=== PATIENT | female | born 1965 | race Caucasian/White ===

== ENCOUNTER → 2020-03-22 | Outpatient (CLI) | payer OTHER ==
--- NOTE | 2020-03-22 16:46 | Diagnostic Imaging Report ---
PROCEDURE: US Bilateral lower extremity arterial. TECHNIQUE: Multiple real-time grayscale images are obtained through both lower extremity arterial systems with color Doppler imaging and color Doppler spectral analysis. INDICATION: Diabetes. Right toe ulcerations. Partial amputation of the left foot. History of bilateral femoropopliteal bypass grafts. COMPARISON: None available. FINDINGS: On the right, there is a common femoral to popliteal bypass graft. There appears to be greater than 50% narrowing at the origin of this graft where there is also an elevated peak systolic velocity of 131 cm/s. There is also a high-grade stenosis of the distal graft where the peak systolic velocity reaches 196 cm/s. There are monophasic waveforms within the right lower extremity below the graft insertion. The right posterior tibial artery is not seen. On the left, there is also a common femoral to popliteal artery bypass graft. There is an elevated peak systolic velocity in the left profundofemoral measuring 238 cm/s. There is also an elevated peak systolic velocity in the distal graft measuring 161 cm/s. There are monophasic waveforms in the left lower extremity below the level of the graft insertion. IMPRESSION: 1. Bilateral common femoral to popliteal bypass grafts. 2. There are elevated peak systolic velocities, suggesting high-grade stenosis at both the proximal and distal portion of the right bypass graft. 3. The right posterior tibial artery is not seen and likely occluded. 4. Elevated peak systolic velocities in the left profunda femoral and distal left bypass graft, suggesting high-grade arterial stenoses. Dictated by: Dictated on workstation # [id number]
== END ==
LOC: RAD 11:47
PROVIDERS: ATTEND Surgery
DX: E11.621 Type 2 diabetes mellitus with foot ulcer (principal); E11.42 Type 2 diabetes mellitus with diabetic polyneuropathy; E11.65 Type 2 diabetes mellitus with hyperglycemia; L97.514 Non-pressure chronic ulcer of other part of right foot with necrosis of bone; I70.235 Atherosclerosis of native arteries of right leg with ulceration of other part of foot; E11.22 Type 2 diabetes mellitus with diabetic chronic kidney disease; N18.4 Chronic kidney disease, stage 4 (severe); E66.01 Morbid (severe) obesity due to excess calories
CPT/HCPCS: 93925

== ENCOUNTER → 2020-03-22 | Outpatient (CLI) | payer OTHER | LOC: WOUNDCARE 08:55 | PROVIDERS: ATTEND Surgery | DX: E11.621 Type 2 diabetes mellitus with foot ulcer (principal); E11.42 Type 2 diabetes mellitus with diabetic polyneuropathy; E11.65 Type 2 diabetes mellitus with hyperglycemia; L97.514 Non-pressure chronic ulcer of other part of right foot with necrosis of bone; I70.235 Atherosclerosis of native arteries of right leg with ulceration of other part of foot; E11.22 Type 2 diabetes mellitus with diabetic chronic kidney disease; N18.4 Chronic kidney disease, stage 4 (severe); E66.01 Morbid (severe) obesity due to excess calories; Z68.42 Body mass index [BMI] 45.0-49.9, adult | CPT/HCPCS: 99204 ==

== ENCOUNTER → 2020-03-26 | Outpatient (CLI) | payer OTHER | LOC: WOUNDCARE 15:26 | PROVIDERS: ATTEND Surgery | DX: E11.621 Type 2 diabetes mellitus with foot ulcer (principal); E11.52 Type 2 diabetes mellitus with diabetic peripheral angiopathy with gangrene; E11.22 Type 2 diabetes mellitus with diabetic chronic kidney disease; E11.42 Type 2 diabetes mellitus with diabetic polyneuropathy; E11.65 Type 2 diabetes mellitus with hyperglycemia; I70.261 Atherosclerosis of native arteries of extremities with gangrene, right leg; L97.514 Non-pressure chronic ulcer of other part of right foot with necrosis of bone; N18.4 Chronic kidney disease, stage 4 (severe); E66.01 Morbid (severe) obesity due to excess calories; Z68.42 Body mass index [BMI] 45.0-49.9, adult | CPT/HCPCS: 99212 ==

== ENCOUNTER → 2020-04-02 | Outpatient (CLI) | payer OTHER | LOC: WOUNDCARE 15:20 | PROVIDERS: ATTEND Surgery | DX: E11.621 Type 2 diabetes mellitus with foot ulcer (principal); E11.42 Type 2 diabetes mellitus with diabetic polyneuropathy; E11.52 Type 2 diabetes mellitus with diabetic peripheral angiopathy with gangrene; E11.22 Type 2 diabetes mellitus with diabetic chronic kidney disease; I70.261 Atherosclerosis of native arteries of extremities with gangrene, right leg; L97.514 Non-pressure chronic ulcer of other part of right foot with necrosis of bone; N18.4 Chronic kidney disease, stage 4 (severe); E66.01 Morbid (severe) obesity due to excess calories; Z68.42 Body mass index [BMI] 45.0-49.9, adult | CPT/HCPCS: 99212 ==

== ENCOUNTER → 2020-04-09 | Outpatient (CLI) | payer OTHER | LOC: WOUNDCARE 15:27 | PROVIDERS: ATTEND Surgery | DX: E11.621 Type 2 diabetes mellitus with foot ulcer (principal); E11.52 Type 2 diabetes mellitus with diabetic peripheral angiopathy with gangrene; E11.22 Type 2 diabetes mellitus with diabetic chronic kidney disease; E11.42 Type 2 diabetes mellitus with diabetic polyneuropathy; I70.261 Atherosclerosis of native arteries of extremities with gangrene, right leg; L97.513 Non-pressure chronic ulcer of other part of right foot with necrosis of muscle; E66.01 Morbid (severe) obesity due to excess calories; N18.4 Chronic kidney disease, stage 4 (severe); Z68.42 Body mass index [BMI] 45.0-49.9, adult | CPT/HCPCS: 99212 ==

== ENCOUNTER → 2020-04-16 | Outpatient (CLI) | payer OTHER | LOC: WOUNDCARE 15:25 | PROVIDERS: ATTEND Surgery | DX: E11.621 Type 2 diabetes mellitus with foot ulcer (principal); E11.42 Type 2 diabetes mellitus with diabetic polyneuropathy; E11.52 Type 2 diabetes mellitus with diabetic peripheral angiopathy with gangrene; E11.22 Type 2 diabetes mellitus with diabetic chronic kidney disease; I70.261 Atherosclerosis of native arteries of extremities with gangrene, right leg; L97.514 Non-pressure chronic ulcer of other part of right foot with necrosis of bone; E66.01 Morbid (severe) obesity due to excess calories; N18.4 Chronic kidney disease, stage 4 (severe); Z68.42 Body mass index [BMI] 45.0-49.9, adult | CPT/HCPCS: 99212 ==

== ENCOUNTER 2020-04-23 05:37 | Outpatient (RCR) | payer OTHER ==
[~2020-04-23] VITALS: Ht 180.3 cm; Wt 155.9 kg
[~2020-04-23 05:37] MED LIST: AMLO10TA7 PO; CALC-654 PO; CHOL200059 PO; CLOP75TA28 PO; DIPH25CA79 PO; DOXY100T31 PO; DULA1.5P2 SQ; INSU100I51 SQ; INSU200I4 SQ; LORA10TA7 PO; LOVA20TA2 PO; METO-333 PO; MV-M1TAB57 PO
== END 2020-04-23 09:54 | disposition home or self-care (01) ==
LOC: PREOP 05:37
PROVIDERS: ATTEND Surgery
DX: Z01.812 Encounter for preprocedural laboratory examination (principal); M89.9 Disorder of bone, unspecified; Z20.828 Contact with and (suspected) exposure to other viral communicable diseases
CPT/HCPCS: 87635

== ENCOUNTER 2020-05-28 14:57 | Inpatient (IN) | payer OTHER ==
[~2020-05-28] VITALS: Ht 180.3 cm; Wt 155.9 kg
--- NOTE | 2020-05-28 15:00 | NUR ---
received pt in room
[2020-05-28] MEDS ORDERED: CATHETER FLUSH 10 ML SYR IV PRN (15:30)
--- NOTE | 2020-05-28 15:30 | NUR ---
I called Dr. Keith with pt's dvt score which was a 7. Orders were for 40mg of Lovenox daily
[2020-05-28 15:35] LABS: MEAN PLATELET VOLUME 11.2 FL (7.4-10.4); RED CELL DISTRIBUTION WIDTH 12.7 % (10.0-14.5); WHITE BLOOD COUNT 18.7 10^3/uL (4.3-11.0)
[2020-05-28 15:45] VITALS: BP 175/77
[2020-05-28 15:48] VITALS: BP 175/77
[2020-05-28] MEDS ORDERED: VANCOMYCIN 2000 MG/NS 500 ML IVPB IV NR ×2 (16:00)
[2020-05-28] MEDS: NS IV 1000 ML 1,000 ML IV SCH (16:02)
[2020-05-28 16:04] LABS: ALBUMIN 3.2 GM/DL (3.2-4.5); BILIRUBIN,TOTAL 0.5 MG/DL (0.1-1.0); CALCIUM 9.7 MG/DL (8.5-10.1); CREATININE SERUM 3.07 MG/DL (0.60-1.30); POTASSIUM 4.2 MMOL/L (3.6-5.0); TOTAL PROTEIN 7.2 GM/DL (6.4-8.2)
[2020-05-28] MEDS ORDERED: METO50TA15 PO (16:14)
[2020-05-28] MEDS ORDERED: CALC500T64 PO (16:14)
[2020-05-28] MEDS ORDERED: FURO40TA4 PO (16:14)
--- NOTE | 2020-05-28 16:16 | NUR ---
SPOKE WITH THE PT (SHE HAD A MED LIST THAT I ATTACHED TO HER CHART) AND WENT THRU THE EXT MED HISTORY TO COMPLETE THE MED REC PT WAS ABLE TO TELL ME HOW/WHEN SHE TAKES EACH MED AND ALL HER INFORMATION MATCHED THE EXT MED HISTORY OTC MEDS: LORATADINE BENADRYL VIT D MTV CALCIUM
--- NOTE | 2020-05-28 16:27 | NUR ---
CR 3.07; CR CL ~356 (USED ADJ WT OF 104.8 KG); ACTUAL WT 155.9 KG; VANCO 2000 MG IV BOLUS THEN 1250 MG IV Q24HR; TROUGH AFTER 2ND DOSE
--- OUTSIDE RECORDS SUMMARY | 2020-05-28 19:20 | XMS REPORT | Continuity of Care Document ---
Author Organization Unknown Address Unknown Phone Unavailable Allergies Active Description Code Type Severity Reaction Onset Reported/Identified Relationship to Patient Clinical Status Yes No Known Drug Allergies [id number] Drug Allergy Unknown N/A 04/20/2020 Medications There is no data. 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 03/23/2020 EUFEMIA JOSEPH MD, Ot E11.42 TYPE 2 DIABETES MELLITUS WITH DIABETIC P 03/23/2020 EUFEMIA JOSEPH MD, Ot E11.621 TYPE 2 DIABETES MELLITUS WITH FOOT ULCER 03/23/2020 EUFEMIA JOSEPH MD, Ot E11.65 TYPE 2 DIABETES MELLITUS WITH HYPERGLYCE 03/23/2020 EUFEMIA JOSEPH MD, Ot E66.01 MORBID (SEVERE) OBESITY DUE TO EXCESS CA 03/23/2020 EUFEMIA JOSEPH MD Ot I70.235 ATHSCL [place] ARTERIES OF RIGHT LEG W UL 03/23/2020 EUFEMIA JOSEPH MD, Ot L97.514 NON-PRS CHRONIC ULCER OTH PRT RIGHT FOOT 03/23/2020 EUFEMIA JOSEPH MD Ot N18 .4 CHRONIC KIDNEY DISEASE, STAGE 4 (SEVERE) 03/23/2020 EUFEMIA JOSEPH MD, Ot 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 03/23/2020 EUFEMIA JOSEPH MD, Ot E11.42 TYPE 2 DIABETES MELLITUS WITH DIABETIC P 03/23/2020 EUFEMIA JOSEPH MD, Ot E11.621 TYPE 2 DIABETES MELLITUS WITH FOOT ULCER 03/23/2020 EUFEMIA JOSEPH MD, Ot E11.65 TYPE 2 DIABETES MELLITUS WITH HYPERGLYCE 03/23/2020 EUFEMIA JOSEPH MD, Ot E66.01 MORBID (SEVERE) OBESITY DUE TO EXCESS CA 03/23/2020 EUFEMIA JOSEPH MD, Ot I70.235 ATHSCL [place] ARTERIES OF RIGHT LEG W UL 03/23/2020 EUFEMIA JOSEPH MD, Ot L97.514 NON-PRS CHRONIC ULCER OTH PRT RIGHT FOOT 03/23/2020 EUFEMIA JOSEPH MD, Ot N18 .4 CHRONIC KIDNEY DISEASE, STAGE 4 (SEVERE) 03/23/2020 EUFEMIA JOSEPH MD, Ot Z68.42 BODY MASS INDEX (BMI) 45.0-49.9, ADULT 03/28/2020 EUFEMIA JOSEPH MD, Ot 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 03/28/2020 EUFEMIA JOSEPH MD, Ot E11.42 TYPE 2 DIABETES MELLITUS WITH DIABETIC P 03/28/2020 EUFEMIA JOSEPH MD, Ot E11.52 TYPE 2 DIABETES W DIABETIC PERIPHERAL AN 03/28/2020 EUFEMIA JOSEPH MD, Ot E11.621 TYPE 2 DIABETES MELLITUS WITH FOOT ULCER 03/28/2020 EUFEMIA JOSEPH MD, Ot E11.65 TYPE 2 DIABETES MELLITUS WITH HYPERGLYCE 03/28/2020 EUFEMIA JOSEPH MD, Ot E66.01 MORBID (SEVERE) OBESITY DUE TO EXCESS CA 03/28/2020 EUFEMIA JOSEPH MD, Ot I70.261 ATHSCL [place] ARTERIES OF EXTREMITIES W 03/28/2020 EUFEMIA JOSEPH MD, Ot L97.514 NON-PRS CHRONIC ULCER OTH PRT RIGHT FOOT 03/28/2020 EUFEMIA JOSEPH MD, Ot N18 .4 CHRONIC KIDNEY DISEASE, STAGE 4 (SEVERE) 03/28/2020 EUFEMIA JOSEPH MD, Ot Z68.42 BODY MASS INDEX (BMI) 45.0-49.9, ADULT 04/05/2020 EUFEMIA JOSEPH MD, Ot 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 04/05/2020 EUFEMIA JOSEPH MD, Ot E11.42 TYPE 2 DIABETES MELLITUS WITH DIABETIC P 04/05/2020 EUFEMIA JOSEPH MD, Ot E11.52 TYPE 2 DIABETES W DIABETIC PERIPHERAL AN 04/05/2020 EUFEMIA JOSEPH MD, Ot E11.621 TYPE 2 DIABETES MELLITUS WITH FOOT ULCER 04/05/2020 EUFEMIA JOSEPH MD, Ot E66.01 MORBID (SEVERE) OBESITY DUE TO EXCESS CA 04/05/2020 EUFEMIA JOSEPH MD, Ot I70.261 ATHSCL [place] ARTERIES OF EXTREMITIES W 04/05/2020 EUFEMIA JOSEPH MD, Ot L97.514 NON-PRS CHRONIC ULCER OTH PRT RIGHT FOOT 04/05/2020 EUFEMIA JOSEPH MD, Ot N18 .4 CHRONIC KIDNEY DISEASE, STAGE 4 (SEVERE) 04/05/2020 EUFEMIA JOSEPH MD, Ot Z68.42 BODY MASS INDEX (BMI) 45.0-49.9, ADULT 04/17/2020 EUFEMIA JOSEPH MD, Ot 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 04/17/2020 EUFEMIA JOSEPH MD, Ot E11.42 TYPE 2 DIABETES MELLITUS WITH DIABETIC P 04/17/2020 EUFEMIA JOSEPH MD, Ot E11.52 TYPE 2 DIABETES W DIABETIC PERIPHERAL AN 04/17/2020 EUFEMIA JOSEPH MD, Ot E11.621 TYPE 2 DIABETES MELLITUS WITH FOOT ULCER 04/17/2020 EUFEMIA JOSEPH MD, Ot E66.01 MORBID (SEVERE) OBESITY DUE TO EXCESS CA 04/17/2020 EUFEMIA JOSEPH MD, Ot I70.261 ATHSCL [place] ARTERIES OF EXTREMITIES W 04/17/2020 EUFEMIA JOSEPH MD, Ot L97.513 NON-PRS CHRONIC ULCER OTH PRT RIGHT FOOT 04/17/2020 EUFEMIA JOSEPH MD, Ot N18 .4 CHRONIC KIDNEY DISEASE, STAGE 4 (SEVERE) 04/17/2020 EUFEMIA JOSEPH MD, Ot Z68.42 BODY MASS INDEX (BMI) 45.0-49.9, ADULT 04/18/2020 EUFEMIA JOSEPH MD, Ot 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 04/18/2020 EUFEMIA JOSEPH MD, Ot E11.42 TYPE 2 DIABETES MELLITUS WITH DIABETIC P 04/18/2020 EUFEMIA JOSEPH MD, Ot E11.52 TYPE 2 DIABETES W DIABETIC PERIPHERAL AN 04/18/2020 EUFEMIA JOSEPH MD Ot E11.621 TYPE 2 DIABETES MELLITUS WITH FOOT ULCER 04/18/2020 EUFEMAI JOSEPH MD Ot E66.01 MORBID (SEVERE) OBESITY DUE TO EXCESS CA 04/18/2020 EUFEMIA JOSEPH MD, Ot I70.261 ATHSCL [place] ARTERIES OF EXTREMITIES W 04/18/2020 EUFEMIA JOSEPH MD, Ot L97.514 NON-PRS CHRONIC ULCER OTH PRT RIGHT FOOT 04/18/2020 EUFEMIA JOSEPH MD Ot N18 .4 CHRONIC KIDNEY DISEASE, STAGE 4 (SEVERE) 04/18/2020 JAKE DURON, EUFEMIA Rothman Ot Z68.42 BODY MASS INDEX (BMI) 45.0-49.9, ADULT 04/26/2020 READBURAK PEDERSON DO, Ot E11. 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 51 TYPE 2 DIABETES W DIABETIC PERIPHERAL AN 04/26/2020 READ BURAK MUÑOZ Ot E11.621 TYPE 2 DIABETES MELLITUS WITH FOOT ULCER 04/26/2020 READ BURAK MUÑOZ Ot E66. 01 MORBID (SEVERE) OBESITY DUE TO EXCESS CA 04/26/2020 BURAK READ DO Ot G47. 33 OBSTRUCTIVE SLEEP APNEA (ADULT) (PEDIATR 04/26/2020 BURAK READ DO Ot I12. 9 HYPERTENSIVE CHRONIC KIDNEY DISEASE W ST 04/26/2020 BURAK READ DO Ot I70.235 ATHSCL [place] ARTERIES OF RIGHT LEG W UL 04/26/2020 BURAK READ DO Ot L97.514 NON-PRS CHRONIC ULCER OTH PRT RIGHT FOOT 04/26/2020 BURAK READ DO Ot M86. 9 OSTEOMYELITIS, UNSPECIFIED 04/26/2020 BURAK READ DO Ot N18. 4 CHRONIC KIDNEY DISEASE, STAGE 4 (SEVERE) 04/26/2020 BURAK READ DO Ot S91.104A UNSP OPN WND RIGHT LESSER TOE(S) W/O DAM 04/26/2020 BURAK READ DO, Ot Z68. 42 BODY MASS INDEX (BMI) 45.0-49.9, ADULT 04/26/2020 BURAK READ DO Ot Z79. 02 RACKET STRINGER (CURRENT) USE OF ANTITHROMBOTI 04/26/2020 BURAK READ DO, Ot Z79.899 OTHER RACKET STRINGER (CURRENT) DRUG THERAPY 04/26/2020 BURAK READ DO, Ot Z87.891 PERSONAL HISTORY OF NICOTINE DEPENDENCE 04/26/2020 BURAK READ DO Ot Z95. 5 PRESENCE OF CORONARY ANGIOPLASTY IMPLANT 05/02/2020 BURAK READ DO Ot E11. 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 51 TYPE 2 DIABETES W DIABETIC PERIPHERAL AN 05/02/2020 PHIL READ DOTT D Ot E11.621 TYPE 2 DIABETES MELLITUS WITH FOOT ULCER 05/02/2020 READ DOBURAK Ot E66. 01 MORBID (SEVERE) OBESITY DUE TO EXCESS CA 05/02/2020 [facility] G47. 33 OBSTRUCTIVE SLEEP APNEA (ADULT) (PEDIATR 05/02/2020 [facility] Ot I12. 9 HYPERTENSIVE CHRONIC KIDNEY DISEASE W ST 05/02/2020 READ BURAK MUÑOZ Ot I70.235 ATHSCL [place] ARTERIES OF RIGHT LEG W UL 05/02/2020 READ DOBURAK Ot L97.514 NON-PRS CHRONIC ULCER OTH PRT RIGHT FOOT 05/02/2020 READ DOBURAK Ot M86. 9 OSTEOMYELITIS, UNSPECIFIED 05/02/2020 READ DOBURAK Ot N18. 4 CHRONIC KIDNEY DISEASE, STAGE 4 (SEVERE) 05/02/2020 [facility] Ot S91.104A UNSP OPN WND RIGHT LESSER TOE(S) W/O DAM 05/02/2020 READ DOBURAK Ot Z68. 42 BODY MASS INDEX (BMI) 45.0-49.9, ADULT 05/02/2020 READ DOBURAK Ot Z79. 02 HALF-WAY (CURRENT) USE OF ANTITHROMBOTI 05/02/2020 READ DOBURAK Ot Z79.899 OTHER RACKET STRINGER (CURRENT) DRUG THERAPY 05/02/2020 READ DOBURAK Ot Z87.891 PERSONAL HISTORY OF NICOTINE DEPENDENCE 05/02/2020 READ BURAK MUÑOZ Ot Z95. 5 PRESENCE OF CORONARY ANGIOPLASTY IMPLANT 05/07/2020 BURAK READ DO Ot E11. 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 51 TYPE 2 DIABETES W DIABETIC PERIPHERAL AN 05/07/2020 BURAK READ DO Ot E11.621 TYPE 2 DIABETES MELLITUS WITH FOOT ULCER 05/07/2020 READ BURAK MUÑOZ Ot E66. 01 MORBID (SEVERE) OBESITY DUE TO EXCESS CA 05/07/2020 BURAK READ DO Ot G47. 33 OBSTRUCTIVE SLEEP APNEA (ADULT) (PEDIATR 05/07/2020 READ DOBURAK Ot I12. 9 HYPERTENSIVE CHRONIC KIDNEY DISEASE W ST 05/07/2020 [facility] Ot I70.235 ATHSCL [place] ARTERIES OF RIGHT LEG W UL 05/07/2020 [facility] Ot L97.514 NON-PRS CHRONIC ULCER OTH PRT RIGHT FOOT 05/07/2020 [facility] Ot M86. 9 OSTEOMYELITIS, UNSPECIFIED 05/07/2020 [facility] Ot N18. 4 CHRONIC KIDNEY DISEASE, STAGE 4 (SEVERE) 05/07/2020 [facility] Ot S91.104A UNSP OPN WND RIGHT LESSER TOE(S) W/O DAM 05/07/2020 [facility] Ot Z68. 42 BODY MASS INDEX (BMI) 45.0-49.9, ADULT 05/07/2020 [facility] Ot Z79. 02 RACKET STRINGER (CURRENT) USE OF ANTITHROMBOTI 05/07/2020 [facility] Ot Z79.899 OTHER RACKET STRINGER (CURRENT) DRUG THERAPY 05/07/2020 [facility] Ot Z87.891 PERSONAL HISTORY OF NICOTINE DEPENDENCE 05/07/2020 [facility] Z95. 5 PRESENCE OF CORONARY ANGIOPLASTY IMPLANT Procedures There is no data. Results Test Result Range Coronavirus SARS-CoV-2 SO 2018 - 0 08:20 Coronavirus Ab [Units/volume] in Serum Negative Negative Methicillin resistant Staphylococcus aur eus (MRSA) screening culture - 04/26/20 11:35 Methicillin resistant Staphylococcus aureus (MRSA) scr eening culture NEG NRG Capillary blood glucose measurement by g lucometer (mass/volume) - 04/26/20 12:08 Capillary blood glucose measurement by glucometer (mas s/volume) 96 mg/dL 70-110 Capillary blood glucose measurement by g lucometer (mass/volume) - 05/28/20 15:28 Capillary blood glucose measurement by glucometer (mas s/volume) 187 mg/dL 70-110 Automated blood complete blood count (he mogram) panel - 05/28/20 15:30 Blood leukocytes automated count (number/volume) 18.7 10*3/uL 4.3-11.0 Blood erythrocytes automated count (number/volume) 3.50 10*6/uL 4.35-5.85 Venous blood hemoglobin measurement (mass/volume) 10.0 g/dL 11.5-16.0 Blood hematocrit (volume fraction) 31 % 35-52 Automated erythrocyte mean corpuscular volume 88 [ foz_us] 80-99 Automated erythrocyte mean corpuscular h emoglobin (mass per erythrocyte) 29 pg 25-34 Automated erythrocyte mean corpuscular h emoglobin concentration measurement (mass/volume) 33 g/dL 32-36 Automated erythrocyte distribution width ratio 12. 7 % 10.0- 14.5 Automated blood platelet count (count/volume) 277 10*3/uL 130-400 Automated blood platelet mean volume measurement 11.2 [foz_us] 7.4-10.4 Comprehensive metabolic panel - 05/28/20 15:30 Serum or plasma sodium measurement (moles/volume) 136 mmol/L 135-145 Serum or plasma potassium measurement (moles/volume) 4.2 mmol/L 3.6-5.0 Serum or plasma chloride measurement (moles/volume) 101 mmol/L 98-107 Carbon dioxide 22 mmol/L 21-32 Serum or plasma anion gap determination (moles/volume) 13 mmol/L 5-14 Serum or plasma urea nitrogen measurement (mass/volume ) 52 mg/dL 7-18 Serum or plasma creatinine measurement (mass/volume) 3.07 mg/dL 0.60-1.30 Serum or plasma urea nitrogen/creatinine mass ratio 17 NRG Serum or plasma creatinine measurement w ith calculation of estimated glomerular filtration rate 16 NRG Serum or plasma glucose measurement (mass/volume) 175 mg/dL 70-105 Serum or plasma calcium measurement (mass/volume) 9.7 mg/dL 8.5-10.1 Serum or plasma total bilirubin measurement (mass/volu me) 0.5 mg/dL 0.1-1.0 Serum or plasma alkaline phosphatase prema surement (enzymatic activity/volume) 89 U/L 40-136 Serum or plasma aspartate aminotransfera se measurement (enzymatic activity/volume) 38 U/L 5-34 Serum or plasma alanine aminotransferase measurement (enzymatic activity/volume) 38 U/L 0-55 Serum or plasma protein measurement (mass/volume) 7.2 g/dL 6.4-8.2 Serum or plasma albumin measurement (mass/volume) 3.2 g/dL 3.2-4.5 CALCIUM CORRECTED 10.3 mg/dL 8.5-10.1 Encounters ACCT No. Visit Date/Time Discharge Status Pt. Type Provider Facility Loc./Unit Complaint [id number] 04/26/2020 11:16:00 15:55:00 DIS Outpatient BURAK READ DO [facility] SDC BONE DECORTICATION [id number] 04/23/2020 05:37:00 09:54:00 DIS Outpatient BURAK READ DO [facility] PREOP BONE DECORTICATION [id number] 04/16/2020 15:25:00 23:59:59 CLS Outpatient EUFEMIA JOSEPH MD [facility] WOUNDCARE [id number] 04/09/2020 15:27:00 23:59:59 CLS Outpatient EUFEMIA JOSEPH MD [facility] [id number] 04/02/2020 15:20:00 23:59:59 CLS Outpatient EUFEMIA JOSEPH MD [facility] [id number] 03/26/2020 15:26:00 23:59:59 CLS Outpatient EUFEMIA JOSEPH MD [facility] [id number] 03/22/2020 11:47:00 23:59:59 CLS Outpatient EUFEMIA JOSEPH MD [facility] RAD ATHEROSCLEROSIS OF KIMBERLY VE ART RIGHT LEG [id number] 03/22/2020 08:55:00 23:59:59 CLS Outpatient EUFEMIA JOSEPH MD [facility] W[facility] [id number] 05/28/2020 14:57:[address] Inpatient BURAK READ DO [facility] 4TH LOWER EXT CELLULITUS
[2020-05-28 19:33] VITALS: BP 159/78
[2020-05-28] MEDS: ENOXAPARIN 40 MG/0.4 ML (LOVENOX) SYR SC SCH (20:43)
--- NOTE | 2020-05-28 21:24 | NUR ---
DR. READ CALLED THIS RN ORDER RECEIVED TO START PT ON SS A FOR DM MANAGEMENT-START TONIGHT
[2020-05-28] MEDS: inSUlin ASPART (NovoLOG) 1 UNIT/0.01 ML (CHARGE PER UNIT) SC SCH (21:34)
[2020-05-29 00:45] VITALS: BP 178/76
[2020-05-29 04:05] VITALS: BP 167/73
[2020-05-29] MEDS: NS IV 1000 ML 1,000 ML IV SCH ×3 (04:07→21:29)
[2020-05-29 05:20] LABS: HEMOGLOBIN 9.4 G/DL (11.5-16.0); MEAN PLATELET VOLUME 11.5 FL (7.4-10.4); RED CELL DISTRIBUTION WIDTH 12.4 % (10.0-14.5); WHITE BLOOD COUNT 17.1 10^3/uL (4.3-11.0)
[2020-05-29 05:57] LABS: CREATININE SERUM 2.98 MG/DL (0.60-1.30); POTASSIUM 4.3 MMOL/L (3.6-5.0)
--- NOTE | 2020-05-29 06:04 | NUR ---
dr. bocanegra called this rn-order to make pt NPO now.
[2020-05-29] MEDS: inSUlin ASPART (NovoLOG) 1 UNIT/0.01 ML (CHARGE PER UNIT) SC SCH ×3 (06:21→18:52)
[2020-05-29 08:00] VITALS: BP 170/82
[2020-05-29] MEDS: ENOXAPARIN 40 MG/0.4 ML (LOVENOX) SYR SC SCH (08:42)
[2020-05-29] MEDS: metroNIDAZOLE 500MG/100ML IVPB 100 ML IV SCH ×3 (08:46→21:29)
[2020-05-29] MEDS: meTOprolol TARTRATE 50 MG (LOPRESSOR) TAB PO SCH ×2 (08:46→21:28)
[2020-05-29] MEDS ORDERED: NON-FORMULARY MEDICATION 1 EA EA (Lovastatin 20 MG) PO SCH (09:00)
[2020-05-29] MEDS ORDERED: inSUlin ASPART (NovoLOG) 1 UNIT/0.01 ML (CHARGE PER UNIT) SC SCH (09:30)
--- NOTE | 2020-05-29 09:43 | NUR ---
CM/SS visited with patient for social service consult regarding Diabetic Supplies. The patient reports that the physician states her cellulitis is looking better today and the plan is to continue with IV antibiotics and monitor. Diabetic Supplies: The patient reports that she is able to afford all of her diabetic supplies at this time. She states the only reason she did not have her medication for a duration of 3 days was due to [facility] being out. Home Health: The patient reports that she has had home health in the past with [facility]. She is not currently on service with a home health agency. CM/SS will continue to follow for discharge planning.
[2020-05-29] MEDS: CEFEPIME INJECTION 1,000 MG in WATER (STERILE) FOR INJECTION 10 ML IV SCH ×2 (10:01→21:29)
--- NOTE | 2020-05-29 11:10 | Consultation - Hospitalist ---
HPI History of Present Illness: HPI/Chief Complaint Beth Cruz is a 54-year-old female with past medical history of hypertension, diabetes, chronic kidney disease, who presented with right lower extremity redness and swelling. She underwent a right third toe amputation due to osteomyelitis about a month ago. She has been having increasing redness and swelling as well as serous discharge. She denies any pus. She reports subjective fevers but when measured she has only been up to 99. She has neuropathy and the has not noticed any pain. She denies any shortness of breath or cough. She denies any chest pain. She denies any abdominal pain, nausea, or vomiting. Source: patient Exam Limitations: no limitations Date Seen 05/29/20 Attending Physician Nahum Keith Katrina M MD Referring Physician Date of Admission May 28, 2020 at 14:57 Home Medications & Allergies Home Medications Reviewed patient Home Medication Reconciliation performed by pharmacy medication reconciliations photonics engineering technician and/or nursing. Patients Allergies have been reviewed. Allergies Allergies Coded Allergies No Known Drug Allergies (Unverified04/20/20) Past Bhgcuwm-Rubgnq-Gxrxuy Hx Past Med/Social Hx: Reviewed Nursing Past Med/Soc Hx Patient Social History Alcohol Use: Occasionally Uses Number of Drinks Today: 0 Alcohol Beverage of Choice: Other Recreational Drug Use: No Smoking Status: Former Smoker Former Smoker, Quit: May 28, 2007 Type Used: Cigarettes 2nd Hand Smoke Exposure: No Physical Abuse Screen: No Sexual Abuse: No Recent Foreign Travel: No Contact w/other who traveled: No Recent Hopitalizations: Yes (03/2020) Recent Infectious Disease Expo: No Immunizations Up To Date Pediatric: No Date of Pneumonia Vaccine: Jul 28, 2018 Seasonal Allergies Seasonal Allergies: Yes Past Medical History Currently Using CPAP: No Currently Using BIPAP: No Cardiac: Hypertension, Peripheral Vascular Endocrine: Diabetes, Non-Insulin dep Are Your Blood Sugars Over 250: No History of Blood Disorders: Yes (blood clot right leg) Adverse Reaction to Blood Sal[place]o: No Family History Back surgery G8 BROTHER Blood clots G8 BROTHER Cardiovascular disease 19 MOTHER FH: lung cancer 19 FATHER FH: skin cancer G8 BROTHER FH: total knee replacement G8 BROTHER Hypertension 19 FATHER 19 MOTHER G8 BROTHER G8 BROTHER G8 SISTER Non-hodgkins lymphoma G8 SISTER Stem cell therapy G8 SISTER Review of Systems Constitutional: fever EENTM: no symptoms reported Respiratory: no symptoms reported Cardiovascular: no symptoms reported Gastrointestinal: no symptoms reported Genitourinary: no symptoms reported Musculoskeletal: no symptoms reported Skin: change in color Psychiatric/Neurological: No Symptoms Reported Physical Exam Physical Exam Vital Signs Vital Signs - First Documented 05/28/20 05/29/20 15:45 00:45 Temp 36.8 Pulse 75 Resp 15 B/P (MAP) 175/77 (109) Pulse Ox 95 O2 Delivery Room Air O2 Flow Rate 2.00 Capillary Refill : Less Than 3 SecondsLess Than 3 Seconds Height, Weight, BMI Height: '" Weight: lbs. oz. kg; 47.95 BMI Method: General Appearance: No Apparent Distress, Obese HEENT: PERRL/EOMI, Pharynx Normal Neck: Normal Inspection, Supple Respiratory: Lungs Clear, Normal Breath Sounds, No Respiratory Distress Cardiovascular: Regular Rate, Rhythm, No Murmur Gastrointestinal: Normal Bowel Sounds, Non Tender, Soft Extremity: Other (Previous left foot amputation, right foot bandaged, erythema up to midshin with 2+ pitting edema) Neurologic/Psychiatric: Alert, Oriented x3, Normal Mood/Affect, Sensory Deficit Skin: Warm/Dry, Erythema Lymphatic: No Adenopathy Results Results/Procedures Labs Laboratory Tests 05/28/20 15:30 05/29/20 04:55 Patient resulted labs reviewed. Assessment/Plan Assessment and Plan Assess & Plan/Chief Complaint Cellulitis Diabetic foot infection T2DM with skin infection Surgery primary Started on vancomycin Add cefepime and Flagyl in setting of diabetic foot infection Continue IV fluids Home regimen: Tresiba 120 units daily, Trulicity weekly, sliding scale Levemir 40 units twice daily NovoLog 10 units with meals Sliding scale insulin level C Hypertension Continue home meds CKD Creatinine 2.98 this morning, stable, appears to be near baseline DVT prophylaxis: Heparin Diagnosis/Problems Diagnosis/Problems (1) T2DM (type 2 diabetes mellitus) Status: Acute Qualifiers: Diabetes mellitus group home insulin use: with group home use Diabetes mellitus complication status: with skin complications Diabetes mellitus complication detail: with other skin complication Qualified Codes: E11.628 - Type 2 diabetes mellitus with other skin complications; Z79.4 - [facility] (current) use of insulin (2) HTN (hypertension) Status: Chronic Qualifiers: Hypertension type: essential hypertension Qualified Codes: I10 - Essential (primary) hypertension (3) CKD (chronic kidney disease) stage 4, GFR 15-29 ml/min Status: Chronic Clinical Quality Measures DVT/VTE Risk/Contraindication: Risk Factor Score Per Nursin RFS Level Per Nursing on Admit: 4+=Very High MARYJANE DODSON MD May 29, 2020 11:10
[2020-05-29 12:00] VITALS: BP 170/74
[2020-05-29 15:44] VITALS: BP 186/83
[2020-05-29] MEDS: VANCOMYCIN 1250 MG/NS 250 ML IVPB IV SCH ×2 (15:51)
[2020-05-29] MEDS ORDERED: hydrALAZINE (APESOLINE) 20 MG/ML VIAL IV PRN (16:00)
[2020-05-29 20:09] VITALS: BP 192/88
[2020-05-29] MEDS: amLODIPine 10 MG (NORVASC) TAB PO SCH (21:28)
[2020-05-29] MEDS: SIMvastatin 10 MG (ZOCOR) TAB PO SCH (21:28)
[2020-05-30 00:07] VITALS: BP 182/81
[2020-05-30] MEDS: metroNIDAZOLE 500MG/100ML IVPB 100 ML IV SCH ×3 (05:48→20:41)
[2020-05-30] MEDS: NS IV 1000 ML 1,000 ML IV SCH ×2 (05:48→18:30)
[2020-05-30] MEDS: CEFEPIME INJECTION 1,000 MG in WATER (STERILE) FOR INJECTION 10 ML IV SCH ×3 (05:49→20:41)
[2020-05-30 06:05] LABS: BASOPHILS # (AUTO) 0.1 10^3/uL (0.0-0.1); BASOPHILS % (AUTO) 0 % (0-10); EOSINOPHILS # (AUTO) 0.1 10^3/uL (0.0-0.3); EOSINOPHILS % (AUTO) 0 % (0-10); HEMATOCRIT 28 % (35-52); HEMOGLOBIN 9.2 G/DL (11.5-16.0); LYMPHOCYTES # (AUTO) 1.1 X 10^3 (1.0-4.0); LYMPHOCYTES % (AUTO) 6 % (12-44); MEAN CORPUSCULAR HEMOGLOBIN 29 PG (25-34); MEAN CORPUSCULAR HGB CONC 32 G/DL (32-36); MEAN CORPUSCULAR VOLUME 89 FL (80-99); MONOCYTES % (AUTO) 6 % (0-12); NEUTROPHILS # (AUTO) 15.5 X 10^3 (1.8-7.8); NEUTROPHILS % (AUTO) 87 % (42-75); PLATELET COUNT 284 10^3/uL (130-400); RED CELL DISTRIBUTION WIDTH 12.7 % (10.0-14.5); WHITE BLOOD COUNT 17.8 10^3/uL (4.3-11.0)
[2020-05-30 06:23] LABS: CALCIUM 8.4 MG/DL (8.5-10.1); CREATININE SERUM 2.74 MG/DL (0.60-1.30); POTASSIUM 4.1 MMOL/L (3.6-5.0)
[2020-05-30] MEDS: inSUlin ASPART (NovoLOG) 1 UNIT/0.01 ML (CHARGE PER UNIT) SC SCH ×6 (08:37→20:40)
[2020-05-30] MEDS: CARVEDILOL 12.5 MG (COREG) TABLET PO SCH ×2 (08:37→17:02)
[2020-05-30 08:40] VITALS: BP 171/73
--- NOTE | 2020-05-30 11:36 | NUR ---
DRESSING CHANGE TO RIGHT PLANTAR FOOT COMPLETED BY THIS RN. PATIENT TOLERATED WELL.
--- NOTE | 2020-05-30 12:02 | Progress Note - Hospitalist ---
Subjective HPI/CC On Admission Date Seen by Provider: May 30, 2020 Time Seen by Provider: 09:45 Beth Cruz is a 54-year-old female with past medical history of hypertension, diabetes, chronic kidney disease, who presented with right lower extremity redness and swelling. She underwent a right third toe amputation due to osteomyelitis about a month ago. She has been having increasing redness and swelling as well as serous discharge. She denies any pus. She reports subjective fevers but when measured she has only been up to 99. She has neuropathy and the has not noticed any pain. She denies any shortness of breath or cough. She denies any chest pain. She denies any abdominal pain, nausea, or vomiting. Subjective/Events-last exam She reports feeling better today. She denies any fevers or chills. She denies any nausea or vomiting. She has not been eating as much as usual. She denies any abdominal pain. She is not having any pain in her foot. Objective Exam Vital Signs Vital Signs Date Time Temp Pulse Resp B/P (MAP) Pulse Ox O2 Delivery O2 Flow Rate FiO2 05/30/20 08:40 36.4 87 18 171/73 (105) 91 Room Air 05/30/20 08:00 2.00 Capillary Refill : Less Than 3 SecondsLess Than 3 Seconds General Appearance: No Apparent Distress, Obese Respiratory: Lungs Clear, Normal Breath Sounds, No Respiratory Distress Cardiovascular: Regular Rate, Rhythm, No Edema, No Murmur Gastrointestinal: Normal Bowel Sounds, Non Tender, Soft Extremity: Inflammation, Pedal Edema Neurologic/Psychiatric: Alert, Oriented x3, No Motor/Sensory Deficits, Normal Mood/Affect Skin: Normal Color, Warm/Dry Results/Procedures Lab Laboratory Tests 05/30/20 05:52 Patient resulted labs reviewed. Assessment/Plan Assessment and Plan Assess & Plan/Chief Complaint Cellulitis Diabetic foot infection T2DM with skin infection Surgery primary Continue vancomycin, cefepime, and Flagyl Continue IV fluids Home regimen: Tresiba 120 units daily, Trulicity weekly, sliding scale Continue Levemir 40 units twice daily Increased to NovoLog 15 units with meals Sliding scale insulin level C Hypertension Continue home meds CKD Creatinine 2.74 this morning, stable, appears to be near baseline Morbid obesity Clinically significant, no acute management needs DVT prophylaxis: Heparin Diagnosis/Problems Diagnosis/Problems (1) Diabetic infection of right foot Status: Acute (2) T2DM (type 2 diabetes mellitus) Status: Acute Qualifiers: Diabetes mellitus chcf insulin use: with chcf use Diabetes mellitus complication status: with skin complications Diabetes mellitus complication detail: with other skin complication Qualified Codes: E11.628 - Type 2 diabetes mellitus with other skin complications; Z79.4 - intermediate frame tender (current) use of insulin (3) HTN (hypertension) Status: Chronic Qualifiers: Hypertension type: essential hypertension Qualified Codes: I10 - Essential (primary) hypertension (4) CKD (chronic kidney disease) stage 4, GFR 15-29 ml/min Status: Chronic Clinical Quality Measures DVT/VTE Risk/Contraindication: Risk Factor Score Per Nursin RFS Level Per Nursing on Admit: 4+=Very High MARYJANE DODSON MD May 30, 2020 12:02
--- NOTE | 2020-05-30 13:54 | NUR ---
RD ASSESSMENT PMHx: HTN; DM; CKD PT INTERACTION: Pt was awake and pleasant during nutrition assessment. Pt states current appetite is not good, and has been this way for about 1week. Note avg PO intake 50-75% x1d, per chart review. Pt states following a low-CHO diet at home, and has no issues with chewing/swallowing food. Pt states no recent issues with nausea, vomiting, constipation, or diarrhea. Note last BM was 8/, and pt not currently on bowel regimen per chart review. Pt states no recent wt changes. Note unable to determine recent wt hx, per chart review. Pt states current DM management was "pretty good until the infection started." Note unable to determine recent HbA1c, per chart review. Note presence of wound (R foot), per chart review. ABNORMAL NUTRITION-RELATED LAB VALUES LOW: Ca 8.4 HIGH: Cl 108; BUN 55; cr 2.47; glu 139 Est. kcal needs: 1775 kcal | 25 kcal/kg IBW, based on IBW of 70.5 kg (155#) Est. Pro needs: 99 g Pro | 1.4 g Pro/kg IBW, based on IBW of 70.5 kg (155#) PES STATEMENT: Inadequate oral intake (NI-2.1) related to loss of appetite as evidenced by pt interview | avg PO intake 50-75% x1d Inadequate protein intake (NI-5.6.1) related to increased protein needs as evidenced by presence of wound (R foot) INTERVENTION: Continue with current diet order of CHO 60g/m 1snack diet. Add Ensure HP (vary) to meals TID. Provides 160 kcal and 16 g Pro per serving, for perceived benefit to wound healing. Discussed and offered diet education on DM management. Discussed wound healing and relationship to DM. Discussed protein intake and appropriate sources. Pt verbalized understanding of information provided. Will continue to follow and reassess as pt needs, intake, and status change. MONITOR/EVALUATE: PO Intake; Plan of Care; Hydration Status; Weight Status; Lab Values Radhames Noguera, MS, RD, LD
--- NOTE | 2020-05-30 14:56 | NUR ---
CM/SS follow up. Plan: The patient will return home with new home health for wound care. CM/SS spoke with physician in regards to plan of care. He states that patient will not need IV antibiotics; however, will need to have wound care. CM/SS offered the choice of outpatient wound care or home health. Home Health: CM/SS provided patient with a patient preference form. She chose [facility]. CM/SS contacted agency and spoke with Karol to make referral. She verbalized they will be able to start care on Thursday. Richard from the agency will come to the hospital to visit patient. CM/SS will continue to follow.
[2020-05-30] MEDS ORDERED: TROUGH ORDER-PHARMACY XX NR (15:00)
--- NOTE | 2020-05-30 15:15 | NUR ---
Pastoral care visit.
[2020-05-30 15:33] VITALS: BP 171/80
[2020-05-30] MEDS: VANCOMYCIN 1250 MG/NS 250 ML IVPB IV SCH ×2 (16:13)
--- NOTE | 2020-05-30 17:14 | History & Physical-Surgical ---
History of Present Illness History of Present Illness Reason for visit/HPI CC, cellulitis right leg Patient seen and evaluated in office yesterday. Recent history of right toe amputation. Was unable to take insulin for several days and began developing worsening cellulitis. Also developed large blister on bottom of right foot. No pain but has lack of sensation usually. Patient right lower extremity also more swollen than normal. Has some drainage from the blistered areas. Denies n/v fever sweats chills shortness of breath or chest pain. Date of Admission May 28, 2020 at 14:57 Date Seen by a Provider: May 29, 2020 Time Seen by a Provider: 07:55 I consulted on this patient on 05/29/20 7:55 Attending Physician Burak Keith DO Admitting Physician Lenka Pinto MD Consult Allergies and Home Medications Allergies Coded Allergies: No Known Drug Allergies (Unverified , 04/20/20) Home Medications Amlodipine Besylate 10 Mg Tablet, 10 MG PO HS, (Reported) Calcium Carbonate 500 Mg Tablet, 500 MG PO BID, (Reported) Cholecalciferol (Vitamin D3) 50 Mcg Tablet, 50 MCG PO BID, (Reported) Clopidogrel Bisulfate 75 Mg Tablet, 75 MG PO DAILY, (Reported) Diphenhydramine HCl 25 Mg Capsule, 50 MG PO HS, (Reported) Dulaglutide 1.5 Mg/0.5 Ml Pen.injctr, 1.5 MG SQ Ruffin, (Reported) Furosemide 40 Mg Tablet, 40 MG PO DAILY, (Reported) Insulin Degludec 200 Unit/1 Ml Insuln.pen, 120 UNIT SQ DAILY, (Reported) Insulin Regular, Human 100 Unit/1 Ml Insuln.pen, 10 UNITS SQ SLIDING/SCALE, (Reported) Loratadine 10 Mg Tablet, 10 MG PO DAILY, (Reported) Lovastatin 20 Mg Tablet, 20 MG PO DAILY, (Reported) Metoprolol Tartrate 50 Mg Tablet, 75 MG PO BID, (Reported) TAKES 1 & (50MG) TABS Mv-Mn/Folic Acid/Calcium/Vit K 1 Each Tablet, 1 EACH PO DAILY, (Reported) Patient Home Medication List Home Medication List Reviewed: Yes Past Wvbseaq-Utlqiu-Blkmbt Hx Patient Social History Alcohol Use: Occasionally Uses Number of Drinks Today: 0 Recreational Drug Use: No Smoking Status: Former Smoker Former Smoker, Quit: May 28, 2007 Type Used: Cigarettes 2nd Hand Smoke Exposure: No Recent Foreign Travel: No Contact w/Someone Who Travel: No Recent Infectious Disease Expo: No Recent Hopitalizations: Yes (03/2020) Physical Abuse Screen: No Sexual Abuse: No Immunizations Up To Date PED Vaccines UTD: No Date of Pneumonia Vaccine: Jul 28, 2018 Seasonal Allergies Seasonal Allergies: Yes Surgeries History of Surgeries: Yes Surgeries: Amputation Respiratory History of Respiratory Disorde: No Respiratory Disorders: Sleep Apnea Cardiovascular History of Cardiac Disorders: No Cardiac Disorders: Hypertension, Peripheral Vascular Neurological History of Neurological Disord: No Genitourinary History of Genitourinary Disor: No Gastrointestinal History of Gastrointestinal Di: No Musculoskeletal History of Musculoskeletal Dis: No Endocrine History of Endocrine Disorders: Yes Endocrine Disorders: Diabetes, Non-Insulin dep HEENT History of HEENT Disorders: No Cancer History of Cancer: No Psychosocial History of Psychiatric Problem: No Integumentary History of Skin or Integumenta: No Blood Transfusions History of Blood Disorders: Yes (blood clot right leg) Adverse Reaction to a Blood Tr: No Reviewed Nursing Assessment Reviewed/Agree w Nursing PMH: Yes Family Medical History Significant Family History: No Pertinent Family Hx Family Medial History: Back surgery G8 BROTHER Blood clots G8 BROTHER Cardiovascular disease 19 MOTHER FH: lung cancer 19 FATHER FH: skin cancer G8 BROTHER FH: total knee replacement G8 BROTHER Hypertension 19 FATHER 19 MOTHER G8 BROTHER G8 BROTHER G8 SISTER Non-hodgkins lymphoma G8 SISTER Stem cell therapy G8 SISTER Review of Systems Constitutional: No chills, No diaphoresis EENTM: No hearing loss, No blurred vision Respiratory: No cough, No dyspnea on exertion Cardiovascular: No chest pain, No palpitations Gastrointestinal: No abdominal pain, No constipation Genitourinary: No decreased output, No dysuria Musculoskeletal: No back pain, No joint pain Skin: change in color (right leg erythema and foot changes) Psychiatric/Neurological: Denies Anxiety, Denies Depressed All Other Systems Reviewed Negative Unless Noted: Yes (Negative excepted noted.) Physical Exam Vital Signs Vital Signs - First Documented 05/28/20 05/29/20 15:45 00:45 Temp 36.8 Pulse 75 Resp 15 B/P (MAP) 175/77 (109) Pulse Ox 95 O2 Delivery Room Air O2 Flow Rate 2.00 Capillary Refill : Less Than 3 SecondsLess Than 3 Seconds Height, Weight, BMI Height: '" Weight: lbs. oz. 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/Affect, 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 Norm as Tested Skin: Warm/Dry, Erythema (almost up to right knee, changes to foot as noted above) Lymphatic: No Adenopathy Data Review Labs Laboratory Tests 05/29/20 20:26: Glucometer 261H 05/30/20 05:18: Glucometer 143H 05/30/20 05:52: White Blood Count 17.8H, Red Blood Count 3.20L, Hemoglobin 9.2L, Hematocrit 28L, Mean Corpuscular Volume 89, Mean Corpuscular Hemoglobin 29, Mean Corpuscular Hemoglobin Concent 32, Red Cell Distribution Width 12.7, Platelet Count 284, Mean Platelet Volume 11.0H, Neutrophils (%) (Auto) 87H, Lymphocytes (%) (Auto) 6L, Monocytes (%) (Auto) 6, Eosinophils (%) (Auto) 0, Basophils (%) (Auto) 0, Neutrophils # (Auto) 15.5H, Lymphocytes # (Auto) 1.1, Monocytes # (Auto) 1.0, Eosinophils # (Auto) 0.1, Basophils # (Auto) 0.1, Sodium Level 139, Potassium Level 4.1, Chloride Level 108H, Carbon Dioxide Level 17L, Anion Gap 14, Blood Urea Nitrogen 55H, Creatinine 2.74H, Estimat Glomerular Filtration Rate 18, BUN/Creatinine Ratio 20, Glucose Level 139H, Calcium Level 8.4L 05/30/20 10:50: Glucometer 188H 05/30/20 14:58: Vancomycin Level Trough 18.4 Assessment/Plan Assessment/Plan Admission Diagonsis right lower extremity cellulitis recent right toe amputation blistering to right foot diabetes insulin controlled morbid obesity Admission Status: Inpatient Order (span 2 midnights) Reason for Inpatient Admission: Patient needs close monitoring and continued re-examination incase needs surgical debridement to right foot IV antibiotics due to cellulitis Assessment/Plan right lower extremity cellulitis recent right toe amputation blistering to right foot diabetes insulin controlled morbid obesity plan IV antibiotics wound care to right lower extremity repeat labs in am tight glucose control IV fluids Clinical Quality Measures DVT/VTE Risk/Contraindication: Risk Factor Score Per Nursin RFS Level Per Nursing on Admit: 4+=Very High BURAK KEITH DO May 30, 2020 17:14
--- NOTE | 2020-05-30 17:24 | Progress Note - Surgery ---
Subjective Date Seen by a Provider: May 30, 2020 Time Seen by a Provider: 10:15 Subjective/Events-last exam Patient redness in right leg slightly improved. WBC still elevated. No pain to right leg. Wound packed. No new complaints. Denies n/v fever sweats chills shortness of breath or chest pain. Objective Exam Vital Signs Date Time Temp Pulse Resp B/P (MAP) Pulse Ox O2 Delivery O2 Flow Rate FiO2 05/30/20 15:33 36.4 84 20 171/80 (110) 96 Room Air 05/30/20 08:40 36.4 87 18 171/73 (105) 91 Room Air 05/30/20 08:00 96 NIV CPAP 2.00 05/30/20 00:07 36.3 76 22 182/81 (114) 96 NIV CPAP 05/29/20 20:09 36.2 88 16 192/88 (122) 90 Room Air 05/29/20 19:30 Room Air I & O 05/30/20 07:00 Intake Total 5002.5 ml Balance 5002.5 ml Capillary Refill : Less Than 3 SecondsLess Than 3 Seconds General Appearance: No Apparent Distress; No Anxious; Obese HEENT: PERRL/EOMI, Normal ENT Inspection Neck: Non Tender, Supple Respiratory: Chest Non Tender, No Accessory Muscle Use, No Respiratory Distress Cardiovascular: Regular Rate, Rhythm, No Edema Gastrointestinal: non tender, soft Extremity: Non Tender, Swelling (right lower extremity, large area of blistering bottom of right foot, black discoloration in two area that appear to be likely blood stained stable) Neurologic/Psychiatric: Alert, Oriented x3, Normal Mood/Affect, 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 Norm as Tested Skin: Warm/Dry, Erythema (almost up to right knee slightly decreased, changes to foot as noted above) Lymphatic: No Adenopathy Results Lab Laboratory Tests 05/29/20 20:26: Glucometer 261H 05/30/20 05:18: Glucometer 143H 05/30/20 05:52: White Blood Count 17.8H, Red Blood Count 3.20L, Hemoglobin 9.2L, Hematocrit 28L, Mean Corpuscular Volume 89, Mean Corpuscular Hemoglobin 29, Mean Corpuscular Hemoglobin Concent 32, Red Cell Distribution Width 12.7, Platelet Count 284, Mean Platelet Volume 11.0H, Neutrophils (%) (Auto) 87H, Lymphocytes (%) (Auto) 6L, Monocytes (%) (Auto) 6, Eosinophils (%) (Auto) 0, Basophils (%) (Auto) 0, Neutrophils # (Auto) 15.5H, Lymphocytes # (Auto) 1.1, Monocytes # (Auto) 1.0, Eosinophils # (Auto) 0.1, Basophils # (Auto) 0.1, Sodium Level 139, Potassium Level 4.1, Chloride Level 108H, Carbon Dioxide Level 17L, Anion Gap 14, Blood Urea Nitrogen 55H, Creatinine 2.74H, Estimat Glomerular Filtration Rate 18, BUN/Creatinine Ratio 20, Glucose Level 139H, Calcium Level 8.4L 05/30/20 10:50: Glucometer 188H 05/30/20 14:58: Vancomycin Level Trough 18.4 Assessment/Plan Assessment/Plan Assessment/Plan right lower extremity cellulitis recent right toe amputation blistering to right foot diabetes insulin controlled morbid obesity plan continue IV antibiotics wound care to right lower extremity repeat labs in am tight glucose control IV fluids continue with conservative measures. Clinical Quality Measures DVT/VTE Risk/Contraindication: Risk Factor Score Per Nursin RFS Level Per Nursing on Admit: 4+=Very High BURAK READ DO May 30, 2020 17:24
[2020-05-30] MEDS: amLODIPine 10 MG (NORVASC) TAB PO SCH (20:40)
[2020-05-30] MEDS: SIMvastatin 10 MG (ZOCOR) TAB PO SCH (20:40)
[2020-05-31 00:35] VITALS: BP 164/81
[2020-05-31 05:36] LABS: BASOPHILS % (AUTO) 0 % (0-10); EOSINOPHILS % (AUTO) 0 % (0-10); HEMATOCRIT 27 % (35-52); HEMOGLOBIN 8.7 G/DL (11.5-16.0); LYMPHOCYTES % (AUTO) 7 % (12-44); MEAN CORPUSCULAR HEMOGLOBIN 29 PG (25-34); MEAN CORPUSCULAR HGB CONC 32 G/DL (32-36); MEAN CORPUSCULAR VOLUME 90 FL (80-99); MEAN PLATELET VOLUME 11.3 FL (7.4-10.4); MONOCYTES # (AUTO) 0.8 X 10^3 (0.0-1.0); MONOCYTES % (AUTO) 5 % (0-12); NEUTROPHILS # (AUTO) 13.1 X 10^3 (1.8-7.8); NEUTROPHILS % (AUTO) 87 % (42-75); PLATELET COUNT 255 10^3/uL (130-400); RED CELL DISTRIBUTION WIDTH 12.4 % (10.0-14.5)
[2020-05-31] MEDS: NS IV 1000 ML 1,000 ML IV SCH ×2 (05:36→13:30)
[2020-05-31 05:49] LABS: CALCIUM 8.2 MG/DL (8.5-10.1); CREATININE SERUM 2.76 MG/DL (0.60-1.30); POTASSIUM 4.2 MMOL/L (3.6-5.0)
[2020-05-31 06:07] LABS: BAND NEUTROPHILS 2 %; LYMPHOCYTES % (MANUAL) 7 %; MONOCYTES % (MANUAL) 5 %; NEUTROPHILS % (MANUAL) 86 %
[2020-05-31 06:08] LABS: HYPOCHROMASIA SLIGHT
[2020-05-31] MEDS: inSUlin ASPART (NovoLOG) 1 UNIT/0.01 ML (CHARGE PER UNIT) SC SCH ×4 (06:11→13:17)
[2020-05-31] MEDS: CEFEPIME INJECTION 1,000 MG in WATER (STERILE) FOR INJECTION 10 ML IV SCH ×2 (06:18→14:24)
[2020-05-31] MEDS: metroNIDAZOLE 500MG/100ML IVPB 100 ML IV SCH ×2 (06:18→14:24)
[2020-05-31 07:53] VITALS: BP 189/77
[2020-05-31] MEDS: CARVEDILOL 12.5 MG (COREG) TABLET PO SCH (08:41)
[2020-05-31] MEDS ORDERED: CARV25TA PO (12:09)
[2020-05-31] MEDS ORDERED: SULF1TAB35 PO (12:09)
[2020-05-31] MEDS ORDERED: AMOX-355 PO (12:09)
--- NOTE | 2020-05-31 12:13 | NUR ---
CM/SS finalized discharge. Plan: The patient is returning home with [facility]. CM/SS contacted Karol to inform her that patient will be discharging home today. She verbalized understanding and is submitting information to insurance. CM/SS spoke with the patient to inform of home health start date. She verbalized understanding. No further needs.
--- NOTE | 2020-05-31 12:13 | D/C HH Face to Face Order ---
D/C Face to Face Orders Reconcile Patient Problems Problems Reviewed?: Yes Instructions for Patient Via [facility], Patient Instructions/FollowUp: take medications as prescribed. Complete her course of antibiotics even appear feeling better. You're being set up with home health for wound care. Follow-up with Drs. Keith and Blair. Physician to follow Patient: Inna Discharge Diet for Home: ADA Diet Patient Data-Allergies,Ht & Wt Patient Allergies: Coded Allergies: No Known Drug Allergies (Unverified , 04/20/20) Home Health Need/Face to Face Date of Face to Face: May 31, 2020 Clinical Findings: Instability, Pain with ambulation, Wound infection I have seen Pt [id number]: Yes Discharged To: Home Diagnosis/Conditions: diabetic foot infection Patient is Homebound due to: Vicki fall risk due to instabilty, Pain w/ambulation Homebound Status Due to the above stated illness, injury or surgical procedure (medical condition or diagnosis) and associated clinical findings, the patient is homebound because of his/her inability to leave home except with aid of a supportive device and/or person AND leaving the home requires a considerable and taxing effort or is medically contraindicated. Pt req the following assistanc: Aid of another person Home Health Nursing Orders Home Health Services Order: Nursing Services, Wound Care-Eval/Treat Certify Stmt I certify that this patient is under my care and that I, a nurse practitioner or a physician; a energy assistant working with me, had a face to face encounter that - meets the physician face to face encounter requirements with this patient as dated. MARYJANE DODSON MD May 31, 2020 12:13
--- NOTE | 2020-05-31 13:44 | Progress Note - Hospitalist ---
Subjective HPI/CC On Admission Date Seen by Provider: May 31, 2020 Time Seen by Provider: 11:10 Beth Cruz is a 54-year-old female with past medical history of hypertension, diabetes, chronic kidney disease, who presented with right lower extremity redness and swelling. She underwent a right third toe amputation due to osteomyelitis about a month ago. She has been having increasing redness and swelling as well as serous discharge. She denies any pus. She reports subjective fevers but when measured she has only been up to 99. She has neuropathy and the has not noticed any pain. She denies any shortness of breath or cough. She denies any chest pain. She denies any abdominal pain, nausea, or vomiting. Subjective/Events-last exam she reports feeling better today. She feels like her swelling has improved. She denies any fevers or chills. She denies any nausea or vomiting. She has no other complaints or concerns. Objective Exam Vital Signs Vital Signs Date Time Temp Pulse Resp B/P (MAP) Pulse Ox O2 Delivery O2 Flow Rate FiO2 05/31/20 08:06 Room Air 05/31/20 07:53 36.2 89 20 189/77 (114) 94 05/30/20 08:00 2.00 Capillary Refill : Less Than 3 SecondsLess Than 3 Seconds General Appearance: No Apparent Distress, Obese Respiratory: Lungs Clear, Normal Breath Sounds, No Respiratory Distress Cardiovascular: Regular Rate, Rhythm, No Edema, No Murmur Gastrointestinal: Normal Bowel Sounds, Non Tender, Soft Extremity: Non Tender, Pedal Edema, Other (right plantar wound) Neurologic/Psychiatric: Alert, Oriented x3, Normal Mood/Affect Skin: Warm/Dry Results/Procedures Lab Laboratory Tests 05/31/20 05:08 Patient resulted labs reviewed. Assessment/Plan Assessment and Plan Assess & Plan/Chief Complaint Cellulitis Diabetic foot infection T2DM with skin infection Surgery primary Transition to Bactrim and Augmentin continue diabetic regimen Hypertension Continue home meds CKD Creatinine stable, appears to be near baseline Morbid obesity Clinically significant, no acute management needs DVT prophylaxis: Heparin Diagnosis/Problems Diagnosis/Problems (1) Diabetic infection of right foot Status: Acute (2) T2DM (type 2 diabetes mellitus) Status: Acute Qualifiers: Diabetes mellitus [facility] insulin use: with [facility] use Diabetes mellitus complication status: with skin complications Diabetes mellitus complication detail: with other skin complication Qualified Codes: E11.628 - Type 2 diabetes mellitus with other skin complications; Z79.4 - terminal carman (current) use of insulin (3) HTN (hypertension) Status: Chronic Qualifiers: Hypertension type: essential hypertension Qualified Codes: I10 - Essential (primary) hypertension (4) CKD (chronic kidney disease) stage 4, GFR 15-29 ml/min Status: Chronic Clinical Quality Measures DVT/VTE Risk/Contraindication: Risk Factor Score Per Nursin RFS Level Per Nursing on Admit: 4+=Very High MARYJANE DODSON MD May 31, 2020 13:44
--- NOTE | 2020-05-31 14:46 | Progress Note - Surgery ---
Subjective Date Seen by a Provider: May 31, 2020 Time Seen by a Provider: 09:30 Subjective/Events-last exam Patient feeling better. Right leg swelling and redness improving. No new complaints. Denies n/v fever sweats chills shortness of breath or chest pain. Objective Exam Vital Signs Date Time Temp Pulse Resp B/P (MAP) Pulse Ox O2 Delivery O2 Flow Rate FiO2 05/31/20 08:06 Room Air 05/31/20 07:53 36.2 89 20 189/77 (114) 94 Room Air 05/31/20 00:35 36.4 77 20 164/81 (108) 93 Room Air 05/30/20 20:00 Room Air 05/30/20 15:33 36.4 84 20 171/80 (110) 96 Room Air I & O 05/31/20 07:00 Intake Total 1203 ml Balance 1203 ml Capillary Refill : Less Than 3 SecondsLess Than 3 Seconds General Appearance: No Apparent Distress, Obese HEENT: PERRL/EOMI, Normal ENT Inspection Neck: Non Tender, Supple Respiratory: Chest Non Tender, No Accessory Muscle Use, No Respiratory Distress Cardiovascular: Regular Rate, Rhythm, No Edema, No Murmur Gastrointestinal: non tender, soft Extremity: Non Tender, Pedal Edema, Other (right plantar wound, blackish discoloration, stable, open right wound from previous toe amputation) Neurologic/Psychiatric: Alert, Oriented x3, Normal Mood/Affect Skin: Warm/Dry, Erythema (less right lower ext) Lymphatic: No Adenopathy Results Lab Laboratory Tests 05/30/20 14:58: Vancomycin Level Trough 18.4 05/31/20 05:08: White Blood Count 15.0H, Red Blood Count 3.00L, Hemoglobin 8.7L, Hematocrit 27L, Mean Corpuscular Volume 90, Mean Corpuscular Hemoglobin 29, Mean Corpuscular Hemoglobin Concent 32, Red Cell Distribution Width 12.4, Platelet Count 255, Mean Platelet Volume 11.3H, Neutrophils (%) (Auto) 87H, Lymphocytes (%) (Auto) 7L, Monocytes (%) (Auto) 5, Eosinophils (%) (Auto) 0, Basophils (%) (Auto) 0, Neutrophils # (Auto) 13.1H, Lymphocytes # (Auto) 1.0, Monocytes # (Auto) 0.8, Eosinophils # (Auto) 0.0, Basophils # (Auto) 0.0, Neutrophils % (Manual) 86, Lymphocytes % (Manual) 7, Monocytes % (Manual) 5, Band Neutrophils 2, Hypochromasia SLIGHT, Sodium Level 140, Potassium Level 4.2, Chloride Level 111H , Carbon Dioxide Level 15L, Anion Gap 14, Blood Urea Nitrogen 58H, Creatinine 2.76H, Estimat Glomerular Filtration Rate 18, BUN/Creatinine Ratio 21, Glucose Level 90, Calcium Level 8.2L 05/31/20 10:46: Glucometer 150H Assessment/Plan Assessment/Plan Assessment/Plan right lower extremity cellulitis recent right toe amputation blistering to right foot diabetes insulin controlled morbid obesity oral abx wound care to right lower extremity tight glucose control patient wishes to continue with conservative measures, wants to avoid any further surgical interventions, this may still need further surgical intervention if any worsening of symptoms be seen at that time home health. Clinical Quality Measures DVT/VTE Risk/Contraindication: Risk Factor Score Per Nursin RFS Level Per Nursing on Admit: 4+=Very High BURAK READ DO May 31, 2020 14:45
[2020-05-31] MEDS ORDERED: TROUGH ORDER-PHARMACY XX NR (15:00)
[2020-05-31 15:51] VITALS: BP 157/59
[2020-05-31 17:08] VITALS: BP 157/59
[2020-06-01] MEDS ORDERED: DAKIN'S 1/4 STRENGTH (0.125%) 473 ML BTL TOP SCH (09:00)
== END 2020-05-31 17:08 | disposition home health service (06) | DRG 638 ==
LOC: 4TH 14:57
PROVIDERS: ADMIT Surgery; ATTEND Surgery
DX: E11.628 Type 2 diabetes mellitus with other skin complications (principal); L03.221 Cellulitis of neck; Z68.42 Body mass index [BMI] 45.0-49.9, adult; E11.40 Type 2 diabetes mellitus with diabetic neuropathy, unspecified; I12.9 Hypertensive chronic kidney disease with stage 1 through stage 4 chronic kidney disease, or unspecified chronic kidney disease; E11.22 Type 2 diabetes mellitus with diabetic chronic kidney disease; N18.4 Chronic kidney disease, stage 4 (severe); E66.01 Morbid (severe) obesity due to excess calories; G47.30 Sleep apnea, unspecified; Z79.4 Long term (current) use of insulin; Z89.421 Acquired absence of other right toe(s); Z87.891 Personal history of nicotine dependence
CPT/HCPCS: 36415; 80048; 80053; 80202; 82962; 85007; 85025; 85027

== ENCOUNTER → 2020-06-14 | Outpatient (CLI) | payer OTHER ==
[~2020-06-14] MED LIST changes: +AMOX-355 PO; +CALC500T64 PO; +CARV25TA PO; +FURO40TA4 PO; +METO50TA15 PO; +SULF1TAB35 PO
[2020-06-14 12:43] LABS: CREATININE SERUM 2.61 MG/DL (0.60-1.30)
--- NOTE | 2020-06-14 13:40 | Diagnostic Imaging Report ---
PROCEDURE: MRI right lower extremity without contrast. TECHNIQUE: Multiplanar, multisequence non contrast-enhanced MRI of the right lower extremity was accomplished. INDICATION: Open right foot wound. History of diabetes. Amputation of the first, third, and fifth toes. COMPARISON: None. FINDINGS: No acute fracture is seen in the right foot. There has been prior amputation of the first, third, and fifth toes at the metatarsophalangeal joints, and fifth transmetatarsal amputation. There are severe degenerative changes at the second metatarsophalangeal joint. There is bone marrow edema at the plantar aspect of the second metatarsal head. Severe bone marrow edema is seen in the third metatarsal head and neck with associated T1-weighted marrow replacement. There is mild bone marrow edema in the fourth metatarsal head and neck with mild T1-weighted hypointensity as well. There is bone marrow edema in the fourth proximal phalanx. There is soft tissue ulceration at the plantar aspect of the metatarsal heads as well as at the plantar aspect of the midfoot. Edema appears to extend up to the third and fourth metatarsal heads. No drainable fluid collection is seen on this noncontrast exam. There is marked superficial and deep soft tissue edema about the imaged right foot. There is generalized muscular atrophy which is likely neurogenic. There are degenerative changes in the midfoot. No joint effusion is seen. IMPRESSION: 1. Findings concerning for osteomyelitis of the third and fourth metatarsal heads and the fourth proximal phalanx. Osteitis of the second metatarsal head. 2. Plantar soft tissue ulcerations. No drainable fluid collection is seen on this noncontrast exam. 3. Prior amputation of the first, third, and fifth toes. Dictated by: Dictated on workstation # [id number]
== END ==
LOC: RAD 12:14
PROVIDERS: ATTEND Surgery
DX: S91.301S Unspecified open wound, right foot, sequela (principal); L97.519 Non-pressure chronic ulcer of other part of right foot with unspecified severity
CPT/HCPCS: 36415; 82565; 84520

== ENCOUNTER 2020-06-19 13:16 | Outpatient (CLI) | payer OTHER ==
[~2020-06-19] VITALS: Ht 180.3 cm; Wt 155.9 kg
== END 2020-06-19 14:53 | disposition home or self-care (01) ==
LOC: PREOP 13:16
PROVIDERS: ATTEND Surgery
DX: Z01.818 Encounter for other preprocedural examination (principal)

== ENCOUNTER 2020-06-21 10:46 | Day surgery (SDC) | payer OTHER ==
[~2020-06-21] VITALS: Ht 180.3 cm; Wt 155.9 kg
[2020-06-21] VITALS (7 sets, daily range): BP systolic 135–169; BP diastolic 60–79
[2020-06-21] MEDS ORDERED: LACTATED RINGERS 1,000 ML IV PRN (11:11)
[2020-06-21] MEDS ORDERED: cefTRIAXone FOR IV USE 2,000 MG in WATER (STERILE) FOR INJECTION 20 ML IV ONE (11:15)
[2020-06-21] MEDS ORDERED: metroNIDAZOLE 500MG/100ML IVPB 100 ML IV ONE ×2 (11:15)
[2020-06-21] MEDS ORDERED: PROPOFOL INJECTION 50 ML IV ONE (12:12)
[2020-06-21] MEDS ORDERED: LIDOCAINE PF 2% 5 ML (XYLOCAINE) VIAL ONE (12:12)
[2020-06-21] MEDS ORDERED: fentaNYL INJECTION 100 MCG/2 ML AMP ONE (12:12)
[2020-06-21] MEDS ORDERED: MIDAZOLAM 2 MG/2 ML (VERSED) VIAL ONE ×2 (12:12→13:19)
--- NOTE | 2020-06-21 12:45 | Progress Note-Pre Operative ---
Pre-Operative Progress Note H&P Reviewed The H&P was reviewed, patient examined and no changes noted. Date Seen by Provider: Jun 21, 2020 Time Seen by Provider: 12:42 Date H&P Reviewed: Jun 21, 2020 Time H&P Reviewed: 12:42 Pre-Operative Diagnosis: RIGHT FOOT WOUND/OSTEOMYELITIS BURAK READ DO Jun 21, 2020 12:45
[2020-06-21] MEDS ORDERED: morphine INJ 10 MG/ML 1ML (SYR OR VIAL) IVP ONE (13:45)
[2020-06-21] MEDS ORDERED: ONDANSETRON 4 MG/2 ML (SDV) Z0FRAN IVP PRN (13:45)
--- NOTE | 2020-06-21 13:47 | Anesthesia-General Post-Op ---
MAC Patient Condition Mental Status/LOC: Same as Preop Cardiovascular: Satisfactory Nausea/Vomiting: Absent Respiratory: Satisfactory Pain: Controlled Complications: Absent Post Op Complications Complications None Follow Up Care/Instructions Patient Instructions None needed. Anesthesiology Discharge Order Discharge Order Patient is doing well, no complaints, stable vital signs, no apparent adverse anesthesia problems. ERUM CONRAD DO Jun 21, 2020 13:47
--- NOTE | 2020-06-21 13:52 | Progress Note-Post Operative ---
Post-Operative Progess Note Surgeon (s)/Food Service Representative (s) Surgeon BURAK READ DO Food Service Representative: na Pre-Operative Diagnosis RIGHT FOOT WOUND/OSTEOMYELITIS Post-Operative Diagnosis same Procedure & Operative Findings Date of Procedure 06/21/20 Procedure Performed/Findings excisional debridement using cautery of skin and subcutaneous tissue 15x8cm Anesthesia Type mac Estimated Blood Loss Estimated blood loss (mL): minimal Specimens/Packing Specimens Removed culture BURAK READ DO Jun 21, 2020 13:52
--- NOTE | 2020-06-21 15:15 | NUR ---
attempting to arrange outpatient antibiotic through [facility] with [facility]. awaiting insurance approval. pt agrees to return at 1300 tomorrow for antibiotics et dressing change.
--- NOTE | 2020-06-22 06:27 | OPERATIVE REPORT ---
DATE OF SERVICE: 06/21/2020 PREOPERATIVE DIAGNOSES: Right foot osteomyelitis and right foot wound. POSTOPERATIVE DIAGNOSES: Right foot osteomyelitis and right foot wound. PROCEDURE: Right foot debridement 15 x 8 cm skin and subcutaneous tissue. SURGEON: Burak Keith DO ANESTHESIA: MAC. ESTIMATED BLOOD LOSS: Minimal. COMPLICATIONS: None. INDICATIONS: The patient is a 54-year-old female diabetic, who had a large blister formation on the dorsum of the right foot. She has had recent right toe amputation as well. The patient without any improvement of her foot wound and some changes that were concerning for infection. Therefore, we discussed surgical options. The patient wishes to proceed with debridement of the right foot. She understands risks and benefits and consent was signed in the chart. DESCRIPTION OF PROCEDURE: The patient was taken to the operating suite. She was prepped and draped in sterile fashion. Timeout was performed. Cautery was used to start to debride the skin and subcutaneous tissue from the dorsum of the foot. Once the softer slightly purulent appearing tissue was present, culture was obtained. The overall dimensions of the wound debrided of skin and subcutaneous tissue with 15 x 8 cm. The wound was then irrigated with copious amounts of irrigation and then, the wound was then packed using Kerlix soaked in Betadine wet to dry. The foot was then wrapped in sterile fashion. The patient tolerated procedure well without any complications. The patient understands long-term wound care goal and we will treat osteomyelitis with long-term antibiotics 6 weeks. The patient will follow up in the office in two to three weeks. Any issues before that be seen at that time. Outpatient service already had been arranged along with PICC line placement. Job ID: [id number] DocumentID: [id number] Dictated Date: 06/21/2020 20:14:56 Maintenance And Engineering Manager Date: 06/22/2020 06:25:49 Dictated By: BURAK KEITH DO
== END 2020-06-21 15:15 | disposition home or self-care (01) ==
LOC: SDC 10:46
PROVIDERS: ATTEND Surgery
DX: S91.301A Unspecified open wound, right foot, initial encounter (principal); M86.9 Osteomyelitis, unspecified; G47.33 Obstructive sleep apnea (adult) (pediatric); I12.9 Hypertensive chronic kidney disease with stage 1 through stage 4 chronic kidney disease, or unspecified chronic kidney disease; E11.22 Type 2 diabetes mellitus with diabetic chronic kidney disease; N18.4 Chronic kidney disease, stage 4 (severe); E11.69 Type 2 diabetes mellitus with other specified complication; E11.621 Type 2 diabetes mellitus with foot ulcer; L97.514 Non-pressure chronic ulcer of other part of right foot with necrosis of bone; E66.01 Morbid (severe) obesity due to excess calories; Z68.42 Body mass index [BMI] 45.0-49.9, adult; Z79.899 Other long term (current) drug therapy; Z87.891 Personal history of nicotine dependence
CPT/HCPCS: 11042; 36569; 76937; 82962; 87070; 87075; 87081; 87205; C1751

== ENCOUNTER 2020-06-22 12:47 | Outpatient (RCR) | payer OTHER ==
[~2020-06-22] VITALS: Ht 180.3 cm; Wt 156.8 kg
[2020-06-22 13:00] VITALS: BP 184/78
--- NOTE | 2020-06-22 13:20 | NUR ---
THIS RN REMOVED PATIENT'S WOUND COVER ON RIGHT FOOT AND IRRIGATED WITH NORMAL SALINE, FLUFFED GAUZE WITH WET TO DRY WITH BETADINE THEN PLACED ON WOUND, COVERED WITH 4X4'S THEN WRAPPED WITH KERLIX AND COBAN PER DR. READ'S ORDER. PATIENT TOLERATED PROCEDURE WITH NO COMPLAINTS.
[2020-06-22] MEDS ORDERED: metroNIDAZOLE 500MG/100ML IVPB 200 ML IV SCH (13:30)
[2020-06-22] MEDS ORDERED: cefTRIAXone 2,000 MG/SWFI 20 ML IV PUSH IV SCH ×2 (13:30)
== END 2020-06-22 15:30 | disposition home or self-care (01) ==
LOC: SDC 12:47
PROVIDERS: ATTEND Surgery
DX: Z48.00 Encounter for change or removal of nonsurgical wound dressing (principal)
CPT/HCPCS: 96365; 96366

== ENCOUNTER → 2020-08-06 | Outpatient (CLI) | payer OTHER | LOC: WOUNDCARE 13:07 | PROVIDERS: ATTEND Surgery | DX: E11.621 Type 2 diabetes mellitus with foot ulcer (principal); E11.42 Type 2 diabetes mellitus with diabetic polyneuropathy; L97.414 Non-pressure chronic ulcer of right heel and midfoot with necrosis of bone; I70.234 Atherosclerosis of native arteries of right leg with ulceration of heel and midfoot; M86.471 Chronic osteomyelitis with draining sinus, right ankle and foot; Z20.828 Contact with and (suspected) exposure to other viral communicable diseases | CPT/HCPCS: 99214 ==

== ENCOUNTER → 2020-08-08 | Outpatient (CLI) | payer OTHER ==
--- NOTE | 2020-08-08 14:36 | Diagnostic Imaging Report ---
PROCEDURE: US Bilateral lower extremity arterial. TECHNIQUE: Multiple real-time grayscale images are obtained through both lower extremity arterial systems with color Doppler imaging and color Doppler spectral analysis. INDICATION: Bilateral femoropopliteal grafts with ulcers to the right foot. FINDINGS: The patient's [place] superficial femoral arteries are occluded bilaterally. Patient does have bilateral femoropopliteal grafts. There is primarily biphasic waveforms throughout the left femoropopliteal graft which does appear to be widely patent. Velocities are unremarkable. There is primarily monophasic waveforms in the right femoropopliteal graft. No significant velocity elevation is identified. Posterior tibial arteries could not be visualized bilaterally. Previous exam from February did detect some flow in the posterior tibial artery at the ankle, however this is not visualized today. There is flow within the dorsalis pedis arteries bilaterally which appears to be monophasic. Anterior tibial arteries were not evaluated. IMPRESSION: Patent femoropopliteal grafts bilaterally. The posterior tibial arteries could not be visualized on today's exam bilaterally. There is flow within the dorsalis pedis arteries bilaterally, likely via the anterior tibial arteries. Dictated by: Dictated on workstation # [id number]
== END ==
LOC: RAD 12:18
PROVIDERS: ATTEND Surgery
DX: E11.621 Type 2 diabetes mellitus with foot ulcer (principal); E11.42 Type 2 diabetes mellitus with diabetic polyneuropathy; L97.414 Non-pressure chronic ulcer of right heel and midfoot with necrosis of bone; I70.234 Atherosclerosis of native arteries of right leg with ulceration of heel and midfoot; M86.471 Chronic osteomyelitis with draining sinus, right ankle and foot
CPT/HCPCS: 93925

== ENCOUNTER → 2020-08-13 | Outpatient (CLI) | payer OTHER | LOC: WOUNDCARE 10:59 | PROVIDERS: ATTEND Surgery | DX: E11.621 Type 2 diabetes mellitus with foot ulcer (principal); E11.42 Type 2 diabetes mellitus with diabetic polyneuropathy; L97.414 Non-pressure chronic ulcer of right heel and midfoot with necrosis of bone; I70.234 Atherosclerosis of native arteries of right leg with ulceration of heel and midfoot; M86.471 Chronic osteomyelitis with draining sinus, right ankle and foot; E11.52 Type 2 diabetes mellitus with diabetic peripheral angiopathy with gangrene; Z20.828 Contact with and (suspected) exposure to other viral communicable diseases | CPT/HCPCS: 11044; 11047; 87070; 87075; 87205; G0463 ==

== ENCOUNTER → 2020-08-20 | Outpatient (CLI) | payer OTHER ==
[~2020-08-20] MED LIST changes: +AMLO-251 PO; -AMLO10TA7 PO
== END ==
LOC: WOUNDCARE 09:59
PROVIDERS: ATTEND Surgery
DX: L97.412 Non-pressure chronic ulcer of right heel and midfoot with fat layer exposed (principal); E11.621 Type 2 diabetes mellitus with foot ulcer; E11.42 Type 2 diabetes mellitus with diabetic polyneuropathy; L97.414 Non-pressure chronic ulcer of right heel and midfoot with necrosis of bone; I70.234 Atherosclerosis of native arteries of right leg with ulceration of heel and midfoot; M86.471 Chronic osteomyelitis with draining sinus, right ankle and foot
CPT/HCPCS: 11042; 11044; 11047; G0463

== ENCOUNTER → 2020-08-29 | Outpatient (CLI) | payer OTHER | LOC: WOUNDCARE 13:49 | PROVIDERS: ATTEND Surgery | DX: E11.621 Type 2 diabetes mellitus with foot ulcer (principal); I70.234 Atherosclerosis of native arteries of right leg with ulceration of heel and midfoot; I96 Gangrene, not elsewhere classified; L97.416 Non-pressure chronic ulcer of right heel and midfoot with bone involvement without evidence of necrosis; E11.42 Type 2 diabetes mellitus with diabetic polyneuropathy; M86.471 Chronic osteomyelitis with draining sinus, right ankle and foot | CPT/HCPCS: 11043; 11046; A6260; G0463 ==

== ENCOUNTER → 2020-09-03 | Outpatient (CLI) | payer OTHER | LOC: WOUNDCARE 10:11 | PROVIDERS: ATTEND Surgery | DX: L97.416 Non-pressure chronic ulcer of right heel and midfoot with bone involvement without evidence of necrosis (principal); E11.621 Type 2 diabetes mellitus with foot ulcer; E11.42 Type 2 diabetes mellitus with diabetic polyneuropathy; I70.234 Atherosclerosis of native arteries of right leg with ulceration of heel and midfoot; M86.471 Chronic osteomyelitis with draining sinus, right ankle and foot; E11.52 Type 2 diabetes mellitus with diabetic peripheral angiopathy with gangrene; Z20.828 Contact with and (suspected) exposure to other viral communicable diseases | CPT/HCPCS: 11043; 11046; G0463 ==

== ENCOUNTER 2020-09-10 11:43 | Outpatient (RCR) | payer OTHER ==
[2020-08-20 10:04] LABS: BASOPHILS # (AUTO) 0.1 10^3/uL (0.0-0.1); BASOPHILS % (AUTO) 1 % (0-10); EOSINOPHILS # (AUTO) 0.2 10^3/uL (0.0-0.3); EOSINOPHILS % (AUTO) 3 % (0-10); HEMATOCRIT 35 % (35-52); HEMOGLOBIN 11.3 g/dL (11.5-16.0); LYMPHOCYTES % (AUTO) 12 % (12-44); MEAN CORPUSCULAR HEMOGLOBIN 29 pg (25-34); MEAN CORPUSCULAR HGB CONC 33 g/dL (32-36); MEAN CORPUSCULAR VOLUME 88 fL (80-99); MEAN PLATELET VOLUME 11.1 fL (9.0-12.2); MONOCYTES # (AUTO) 0.4 10^3/uL (0.0-1.0); MONOCYTES % (AUTO) 5 % (0-12); NEUTROPHILS # (AUTO) 6.8 10^3/uL (1.8-7.8); NEUTROPHILS % (AUTO) 79 % (42-75); PLATELET COUNT 203 10^3/uL (130-400); WHITE BLOOD COUNT 8.5 10^3/uL (4.3-11.0)
[2020-08-20 10:14] LABS: POTASSIUM 4.3 MMOL/L (3.6-5.0)
[2020-08-20 10:15] LABS: CALCIUM 10.4 MG/DL (8.5-10.1)
[2020-08-20 10:20] LABS: CREATININE SERUM 3.02 MG/DL (0.60-1.30)
[2020-08-29 13:53] LABS: BASOPHILS # (AUTO) 0.1 10^3/uL (0.0-0.1); BASOPHILS % (AUTO) 1 % (0-10); EOSINOPHILS # (AUTO) 0.2 10^3/uL (0.0-0.3); EOSINOPHILS % (AUTO) 2 % (0-10); HEMATOCRIT 34 % (35-52); HEMOGLOBIN 10.9 g/dL (11.5-16.0); LYMPHOCYTES # (AUTO) 1.1 10^3/uL (1.0-4.0); LYMPHOCYTES % (AUTO) 14 % (12-44); MEAN CORPUSCULAR HEMOGLOBIN 28 pg (25-34); MEAN CORPUSCULAR HGB CONC 32 g/dL (32-36); MEAN CORPUSCULAR VOLUME 88 fL (80-99); MEAN PLATELET VOLUME 10.1 fL (9.0-12.2); MONOCYTES # (AUTO) 0.5 10^3/uL (0.0-1.0); MONOCYTES % (AUTO) 6 % (0-12); NEUTROPHILS # (AUTO) 6.1 10^3/uL (1.8-7.8); NEUTROPHILS % (AUTO) 76 % (42-75); PLATELET COUNT 180 10^3/uL (130-400)
[2020-08-29 14:11] LABS: CREATININE SERUM 3.25 MG/DL (0.60-1.30); POTASSIUM 4.5 MMOL/L (3.6-5.0)
[2020-09-03 10:18] LABS: BASOPHILS # (AUTO) 0.1 10^3/uL (0.0-0.1); BASOPHILS % (AUTO) 1 % (0-10); EOSINOPHILS # (AUTO) 0.2 10^3/uL (0.0-0.3); EOSINOPHILS % (AUTO) 2 % (0-10); HEMATOCRIT 34 % (35-52); HEMOGLOBIN 10.9 g/dL (11.5-16.0); LYMPHOCYTES # (AUTO) 1.1 10^3/uL (1.0-4.0); LYMPHOCYTES % (AUTO) 14 % (12-44); MEAN CORPUSCULAR HEMOGLOBIN 29 pg (25-34); MEAN CORPUSCULAR HGB CONC 32 g/dL (32-36); MEAN CORPUSCULAR VOLUME 89 fL (80-99); MONOCYTES # (AUTO) 0.5 10^3/uL (0.0-1.0); MONOCYTES % (AUTO) 6 % (0-12); NEUTROPHILS # (AUTO) 5.9 10^3/uL (1.8-7.8); NEUTROPHILS % (AUTO) 76 % (42-75); PLATELET COUNT 155 10^3/uL (130-400); WHITE BLOOD COUNT 7.7 10^3/uL (4.3-11.0)
[2020-09-03 10:31] LABS: POTASSIUM 4.4 MMOL/L (3.6-5.0)
[2020-09-03 10:32] LABS: CALCIUM 9.6 MG/DL (8.5-10.1)
[2020-09-03 10:36] LABS: CREATININE SERUM 3.31 MG/DL (0.60-1.30)
[2020-09-10 11:54] LABS: BASOPHILS % (AUTO) 1 % (0-10); EOSINOPHILS # (AUTO) 0.2 10^3/uL (0.0-0.3); EOSINOPHILS % (AUTO) 3 % (0-10); HEMATOCRIT 34 % (35-52); HEMOGLOBIN 10.8 g/dL (11.5-16.0); LYMPHOCYTES # (AUTO) 1.2 10^3/uL (1.0-4.0); LYMPHOCYTES % (AUTO) 16 % (12-44); MEAN CORPUSCULAR HEMOGLOBIN 29 pg (25-34); MEAN CORPUSCULAR HGB CONC 32 g/dL (32-36); MEAN CORPUSCULAR VOLUME 89 fL (80-99); MEAN PLATELET VOLUME 10.3 fL (9.0-12.2); MONOCYTES # (AUTO) 0.4 10^3/uL (0.0-1.0); MONOCYTES % (AUTO) 5 % (0-12); NEUTROPHILS # (AUTO) 5.5 10^3/uL (1.8-7.8); NEUTROPHILS % (AUTO) 76 % (42-75); PLATELET COUNT 136 10^3/uL (130-400); WHITE BLOOD COUNT 7.3 10^3/uL (4.3-11.0)
[2020-09-10 12:15] LABS: POTASSIUM 4.5 MMOL/L (3.6-5.0)
[2020-09-10 12:16] LABS: CALCIUM 9.5 MG/DL (8.5-10.1)
[2020-09-10 12:21] LABS: CREATININE SERUM 2.97 MG/DL (0.60-1.30)
[2020-10-23] MEDS ORDERED: CARV25TA PO (15:16)
[2020-10-23] MEDS ORDERED: INSU100I14 SC (15:16)
[2020-10-23] MEDS ORDERED: FEXO180T84 PO (15:16)
[2020-10-23] MEDS ORDERED: INSU100I32 SC (15:16)
[2020-10-23] MEDS ORDERED: TIMO5DRO5 TOP (15:16)
[2020-10-23] MEDS ORDERED: ALPR0.5T7 PO (15:16)
== END 2020-11-18 | disposition home or self-care (01) ==
LOC: LAB 11:43
PROVIDERS: ATTEND Surgery
DX: E11.621 Type 2 diabetes mellitus with foot ulcer (principal); E11.42 Type 2 diabetes mellitus with diabetic polyneuropathy; L97.414 Non-pressure chronic ulcer of right heel and midfoot with necrosis of bone; I70.234 Atherosclerosis of native arteries of right leg with ulceration of heel and midfoot; M86.471 Chronic osteomyelitis with draining sinus, right ankle and foot
CPT/HCPCS: 36415; 80048; 85025

== ENCOUNTER → 2020-09-10 | Outpatient (CLI) | payer OTHER | LOC: WOUNDCARE 10:32 | PROVIDERS: ATTEND Surgery | DX: E11.621 Type 2 diabetes mellitus with foot ulcer (principal); I96 Gangrene, not elsewhere classified; E11.42 Type 2 diabetes mellitus with diabetic polyneuropathy; I70.234 Atherosclerosis of native arteries of right leg with ulceration of heel and midfoot; M86.471 Chronic osteomyelitis with draining sinus, right ankle and foot; L97.413 Non-pressure chronic ulcer of right heel and midfoot with necrosis of muscle | CPT/HCPCS: 11044; 11047 ==

== ENCOUNTER → 2020-09-17 | Outpatient (CLI) | payer OTHER | LOC: WOUNDCARE 10:37 | PROVIDERS: ATTEND Surgery | DX: E11.621 Type 2 diabetes mellitus with foot ulcer (principal); E11.42 Type 2 diabetes mellitus with diabetic polyneuropathy; I96 Gangrene, not elsewhere classified; I70.234 Atherosclerosis of native arteries of right leg with ulceration of heel and midfoot; M86.471 Chronic osteomyelitis with draining sinus, right ankle and foot; L97.414 Non-pressure chronic ulcer of right heel and midfoot with necrosis of bone | CPT/HCPCS: 11044; 11047; G0463 ==

== ENCOUNTER → 2020-09-25 | Outpatient (CLI) | payer OTHER | LOC: WOUNDCARE 08:03 | PROVIDERS: ATTEND Surgery | DX: L97.416 Non-pressure chronic ulcer of right heel and midfoot with bone involvement without evidence of necrosis (principal); L97.413 Non-pressure chronic ulcer of right heel and midfoot with necrosis of muscle; E11.621 Type 2 diabetes mellitus with foot ulcer; E11.42 Type 2 diabetes mellitus with diabetic polyneuropathy; I70.234 Atherosclerosis of native arteries of right leg with ulceration of heel and midfoot; M86.471 Chronic osteomyelitis with draining sinus, right ankle and foot | CPT/HCPCS: 11042; 11043; 11045; G0463 ==

== ENCOUNTER → 2020-10-02 | Outpatient (CLI) | payer OTHER | LOC: WOUNDCARE 09:05 | PROVIDERS: ATTEND Surgery | DX: I96 Gangrene, not elsewhere classified (principal); E11.621 Type 2 diabetes mellitus with foot ulcer; E11.42 Type 2 diabetes mellitus with diabetic polyneuropathy; I70.234 Atherosclerosis of native arteries of right leg with ulceration of heel and midfoot; M86.471 Chronic osteomyelitis with draining sinus, right ankle and foot; L97.413 Non-pressure chronic ulcer of right heel and midfoot with necrosis of muscle; L97.416 Non-pressure chronic ulcer of right heel and midfoot with bone involvement without evidence of necrosis | CPT/HCPCS: 11043; 11046; G0463 ==

== ENCOUNTER → 2020-10-16 | Outpatient (CLI) | payer OTHER | LOC: WOUNDCARE 11:03 | PROVIDERS: ATTEND Surgery | DX: I70.261 Atherosclerosis of native arteries of extremities with gangrene, right leg (principal); E11.52 Type 2 diabetes mellitus with diabetic peripheral angiopathy with gangrene; E11.621 Type 2 diabetes mellitus with foot ulcer; E11.42 Type 2 diabetes mellitus with diabetic polyneuropathy; L97.416 Non-pressure chronic ulcer of right heel and midfoot with bone involvement without evidence of necrosis; M86.471 Chronic osteomyelitis with draining sinus, right ankle and foot | CPT/HCPCS: 11043; 11046; G0463 ==

== ENCOUNTER 2020-10-23 08:05 | Outpatient (RCR) | payer OTHER ==
[2020-10-23] MEDS ORDERED: TIMO5DRO5 TOP (15:16)
[2020-10-23] MEDS ORDERED: FEXO180T84 PO (15:16)
[2020-10-23] MEDS ORDERED: CARV25TA PO (15:16)
[2020-10-23] MEDS ORDERED: ALPR0.5T7 PO (15:16)
[2020-10-23] MEDS ORDERED: INSU100I32 SC (15:16)
[2020-10-23] MEDS ORDERED: INSU100I14 SC (15:16)
== END 2020-10-25 12:00 | disposition home or self-care (01) ==
LOC: WOUNDCARE 08:05
PROVIDERS: ATTEND Surgery
DX: E11.622 Type 2 diabetes mellitus with other skin ulcer (principal); L97.909 Non-pressure chronic ulcer of unspecified part of unspecified lower leg with unspecified severity
CPT/HCPCS: 82962; G0277; 99183; 99212

== ENCOUNTER 2020-10-23 08:45 | Inpatient (IN) | payer OTHER ==
[~2020-10-23] VITALS: Ht 180 cm; Wt 152.7 kg
[2020-10-23] MEDS ORDERED: RT-ALBUTEROL INHALER HFA (VENTOLIN HFA) 18 GM IH ONE (09:00)
[2020-10-23 09:31] LABS: BASOPHILS % (AUTO) 0 % (0-10); EOSINOPHILS % (AUTO) 0 % (0-10); HEMATOCRIT 33 % (35-52); HEMOGLOBIN 10.1 g/dL (11.5-16.0); LYMPHOCYTES # (AUTO) 0.6 10^3/uL (1.0-4.0); LYMPHOCYTES % (AUTO) 3 % (12-44); MEAN CORPUSCULAR HEMOGLOBIN 29 pg (25-34); MEAN CORPUSCULAR HGB CONC 31 g/dL (32-36); MEAN CORPUSCULAR VOLUME 94 fL (80-99); MEAN PLATELET VOLUME 10.9 fL (9.0-12.2); MONOCYTES # (AUTO) 0.5 10^3/uL (0.0-1.0); MONOCYTES % (AUTO) 3 % (0-12); NEUTROPHILS # (AUTO) 16.5 10^3/uL (1.8-7.8); NEUTROPHILS % (AUTO) 93 % (42-75); PLATELET COUNT 195 10^3/uL (130-400); WHITE BLOOD COUNT 17.7 10^3/uL (4.3-11.0)
[2020-10-23 09:50] LABS: FIBRIN DEGRADATION PRODUCTS 1.26 UG/ML (0.00-0.49); INR 1.2 (0.8-1.4); PROTHROMBIN TIME PATIENT 15.5 SEC (12.2-14.7)
[2020-10-23 09:54] LABS: ALBUMIN 3.2 GM/DL (3.2-4.5); BILIRUBIN,TOTAL 0.5 MG/DL (0.1-1.0); CALCIUM 9.5 MG/DL (8.5-10.1); CREATININE SERUM 2.51 MG/DL (0.60-1.30); POTASSIUM 4.1 MMOL/L (3.6-5.0); TOTAL PROTEIN 7.2 GM/DL (6.4-8.2)
[2020-10-23] MEDS ORDERED: RT-ALBUTEROL INHALER HFA (VENTOLIN HFA) 18 GM IH PRN (10:00)
--- NOTE | 2020-10-23 10:05 | Diagnostic Imaging Report ---
INDICATION: Shortness of air and cough. TIME OF EXAM: 09:15 a.m. COMPARISON: No prior studies are available for comparison. FINDINGS: The heart is enlarged. There is some infiltrate in the right perihilar and right basilar location. Left lung is clear. No significant effusion is seen. There is no pneumothorax. IMPRESSION: Right perihilar and right basilar infiltrate. Dictated by: Dictated on workstation # [id number]
[2020-10-23 10:11] LABS: LYMPHOCYTES % (MANUAL) 3 %; MONOCYTES % (MANUAL) 3 %; NEUTROPHILS % (MANUAL) 94 %; RBC MORPH NORMAL
[2020-10-23 10:38] LABS: BILIRUBIN,URINE NEGATIVE (NEGATIVE); CLARITY,URINE CLOUDY; COLOR,URINE YELLOW; GLUCOSE, URINE (UA) NEGATIVE (NEGATIVE); KETONES,URINE NEGATIVE (NEGATIVE); LEUKOCYTE ESTERASE ,URINE TRACE (NEGATIVE); NITRITE,URINE NEGATIVE (NEGATIVE); PROTEIN,URINE 2+ (NEGATIVE)
[2020-10-23 10:49] LABS: BACTERIA,URINE FEW /HPF; HYALINE CASTS, URINE RARE /LPF
[2020-10-23] MEDS ORDERED: cefTRIAXone FOR IV USE 1,000 MG in WATER (STERILE) FOR INJECTION 10 ML IV ONE (11:00)
[2020-10-23] MEDS ORDERED: ENOXAPARIN 80 MG/0.8 ML (LOVENOX) SYR SC ONE (11:30)
--- NOTE | 2020-10-23 11:32 | ED General ---
General Chief Complaint: Respiratory Problems Stated Complaint: SHORT OF BREATH Nursing Triage Note: ARRVED VIA WC FROM DR JUAREZ OFFICE. WAS THERE FOR A TREATMENT AND FOUND HER SATS TO BE IN THE 80'S. PT COMPLAINS OF SOME SOA AND COUGH FOR A COUPLE OF DAYS. Nursing Sepsis Screen: No Definite Risk Source of Information: Patient Exam Limitations: No Limitations History of Present Illness Date Seen by Provider: Oct 23, 2020 Time Seen by Provider: 08:47 Initial Comments This 54-year-old woman presents to the emergency room from the wound care clinic at the direction of Dr. Aldana. She was noted to have shortness of breath while preparing for hyperbaric chamber therapy. She is receiving wound care therapy for a chronic wound on her foot. Wound care staff measured an oxygen saturation of 83% on room air. Patient does not typically require supplemental oxygen. She reports recent illness that included nausea, diarrhea, mild cough, and shortness of breath for the past few days. She denies fever or chest pain. She has no known COVID-19 exposures. She has an insulin dependent diabetic who is also morbidly obese. She denies any history of respiratory disease such as a sthma or COPD. She has a remote smoking history. Allergies and Home Medications Allergies Coded Allergies: No Known Drug Allergies (Unverified , 04/20/20) Home Medications Amlodipine Besylate 10 Mg Tablet, 10 MG PO HS, (Reported) Calcium Carbonate 500 Mg Tablet, 500 MG PO BID, (Reported) Carvedilol 25 Mg Tablet, 25 MG PO BID Prescribed by: MARYJANE DODSON on 05/31/20 1209 Cholecalciferol (Vitamin D3) 50 Mcg Tablet, 50 MCG PO BID, (Reported) Clopidogrel Bisulfate 75 Mg Tablet, 75 MG PO DAILY, (Reported) Diphenhydramine HCl 25 Mg Capsule, 50 MG PO HS, (Reported) Dulaglutide 1.5 Mg/0.5 Ml Pen.injctr, 1.5 MG SQ Ruffin, (Reported) Furosemide 40 Mg Tablet, 40 MG PO DAILY, (Reported) Insulin Degludec 200 Unit/1 Ml Insuln.pen, 120 UNIT SQ DAILY, (Reported) Insulin Regular, Human 100 Unit/1 Ml Insuln.pen, 10 UNITS SQ SLIDING/SCALE, (Reported) Loratadine 10 Mg Tablet, 10 MG PO DAILY, (Reported) Lovastatin 20 Mg Tablet, 20 MG PO DAILY, (Reported) Mv-Mn/Folic Acid/Calcium/Vit K 1 Each Tablet, 1 EACH PO DAILY, (Reported) Patient Home Medication List Home Medication List Reviewed: Yes Review of Systems Review of Systems Constitutional: no symptoms reported EENTM: no symptoms reported Respiratory: see HPI Cardiovascular: no symptoms reported Gastrointestinal: see HPI Genitourinary: no symptoms reported : No Musculoskeletal: no symptoms reported Skin: see HPI Psychiatric/Neurological: No Symptoms Reported Hematologic/Lymphatic: No Symptoms Reported Immunological/Allergic: no symptoms reported Past Iorqhug-Phlggs-Xsxilr Hx Patient Social History Alcohol Use: Denies Use Number of Drinks Today: II Alcohol Beverage of Choice: Other Recreational Drug Use: No Type Used: Cigarettes Former Smoker, Quit: May 28, 2007 2nd Hand Smoke Exposure: No Recent Foreign Travel: No Contact w/Someone Who Travel: No Recent Infectious Disease Expo: No Recent Hopitalizations: Yes (03/2020) Immunizations Up To Date PED Vaccines UTD: No Date of Pneumonia Vaccine: Jul 28, 2018 Seasonal Allergies Seasonal Allergies: Yes Past Medical History Surgeries: Yes (TOE AMPUTATION, PARTIAL LEFT FOOT AMPUTATION) Amputation Respiratory: No Sleep Apnea Currently Using CPAP: No Currently Using BIPAP: No Cardiac: Yes Hypertension, Peripheral Vascular Neurological: No Genitourinary: Yes Renal Failure (Chronic kidney disease) Gastrointestinal: No Musculoskeletal: No Endocrine: Yes (Severe obesity) Diabetes, Non-Insulin dep HEENT: No Cancer: No Psychosocial: No Integumentary: Yes (RIGHT FOOT WOUND) Blood Disorders: Yes (blood clot right leg) Adverse Reaction/Blood Tranf: No Family Medical History Reviewed Nursing Family Hx Back surgery G8 BROTHER Blood clots G8 BROTHER Cardiovascular disease 19 MOTHER FH: lung cancer 19 FATHER FH: skin cancer G8 BROTHER FH: total knee replacement G8 BROTHER Hypertension 19 FATHER 19 MOTHER G8 BROTHER G8 BROTHER G8 SISTER Non-hodgkins lymphoma G8 SISTER Stem cell therapy G8 SISTER No Pertinent Family Hx Physical Exam-Suspected Sepsis Physical Exam Vital Signs Vital Signs - First Documented 10/23/20 08:55 Temp 37.5 Pulse 79 Resp 18 B/P (MAP) 163/71 (101) Pulse Ox 88 O2 Delivery Room Air O2 Flow Rate 2.00 Capillary Refill : Less Than 3 Seconds Blood Pressure Mean: 101 Height, Weight, BMI Height: '" Weight: lbs. oz. kg; 47.00 BMI Method: General Appearance: No Apparent Distress, WD/WN, Obese HEENT: PERRL/EOMI, Normal ENT Inspection Neck: Normal Inspection Respiratory: Lungs Clear, No Accessory Muscle Use, Decreased Breath Sounds, Other (Increased work of breathing in the expiratory phase (belly breathing)) Cardiovascular: Regular Rate, Rhythm, No Murmur, Other (Bilateral lower e xtremity edema, right greater than left) Gastrointestinal: Non Tender, Soft Extremity: Pedal Edema, Swelling (Right greater than left), Other (Brace on the left foot) Neurologic/Psychiatric: Alert, Oriented x3, No Motor/Sensory Deficits, Normal Mood/Affect, pin worker II-XII Norm as Tested Skin: normal color, warm/dry Focused Exam Lactate Level 10/23/20 09:11: Lactic Acid Level 1.37 Lactic Acid Level Laboratory Tests Test 10/23/20 09:11 Lactic Acid Level 1.37 MMOL/L (0.50-2.00) Progress/Results/Core Measures Suspected Sepsis Recent Fever Within 48 Hours: No Infection Criteria Present: Suspected New Infection New/Unexplained Altered Menta: No Sepsis Screen: No Definite Risk SIRS Temperature: Pulse: 79 Respiratory Rate: 18 Laboratory Tests 10/23/20 09:11: White Blood Count 17.7H Blood Pressure 163 /71 Mean: 101 10/23/20 09:11: Lactic Acid Level 1.37 Laboratory Tests 10/23/20 09:11: Creatinine 2.51H, INR Comment 1.2, Platelet Count 195, Total Bilirubin 0.5 Results/Orders Lab Results Laboratory Tests Test 10/23/20 09:11 10/23/20 10:25 Range/Units White Blood Count 17.7 H 4.3-11.0 10^3/uL Red Blood Count 3.49 L 3.80-5.11 10^6/uL Hemoglobin 10.1 L 11.5-16.0 g/dL Hematocrit 33 L 35-52 % Mean Corpuscular Volume 94 80-99 fL Mean Corpuscular Hemoglobin 29 25-34 pg Mean Corpuscular Hemoglobin Concent 31 L 32-36 g/dL Red Cell Distribution Width 15.2 H 10.0-14.5 % Platelet Count 195 130-400 10^3/uL Mean Platelet Volume 10.9 9.0-12.2 fL Immature Granulocyte % (Auto) 1 % Neutrophils (%) (Auto) 93 H 42-75 % Lymphocytes (%) (Auto) 3 L 12-44 % Monocytes (%) (Auto) 3 0-12 % Eosinophils (%) (Auto) 0 0-10 % Basophils (%) (Auto) 0 0-10 % Neutrophils # (Auto) 16.5 H 1.8-7.8 10^3/uL Lymphocytes # (Auto) 0.6 L 1.0-4.0 10^3/uL Monocytes # (Auto) 0.5 0.0-1.0 10^3/uL Eosinophils # (Auto) 0.0 0.0-0.3 10^3/uL Basophils # (Auto) 0.0 0.0-0.1 10^3/uL Immature Granulocyte # (Auto) 0.1 0.0-0.1 10^3/uL Neutrophils % (Manual) 94 % Lymphocytes % (Manual) 3 % Monocytes % (Manual) 3 % Blood Morphology Comment NORMAL Prothrombin Time 15.5 H 12.2-14.7 SEC INR Comment 1.2 0.8-1.4 Activated Partial Thromboplast Time 31 24-35 SEC D-Dimer 1.26 H 0.00-0.49 UG/ML Sodium Level 139 135-145 MMOL/L Potassium Level 4.1 3.6-5.0 MMOL/L Chloride Level 103 98-107 MMOL/L Carbon Dioxide Level 31 21-32 MMOL/L Anion Gap 5 5-14 MMOL/L Blood Urea Nitrogen 40 H 7-18 MG/DL Creatinine 2.51 H 0.60-1.30 MG/DL Estimat Glomerular Filtration Rate 20 BUN/Creatinine Ratio 16 Glucose Level 162 H 70-105 MG/DL Lactic Acid Level 1.37 0.50-2.00 MMOL/L Calcium Level 9.5 8.5-10.1 MG/DL Corrected Calcium 10.1 8.5-10.1 MG/DL Total Bilirubin 0.5 0.1-1.0 MG/DL Aspartate Amino Transf (AST/SGOT) 32 5-34 U/L Alanine Aminotransferase (ALT/SGPT) 40 0-55 U/L Alkaline Phosphatase 46 40-136 U/L Lactate Dehydrogenase 326 H 125-220 U/L C-Reactive Protein High Sensitivity 6.41 H 0.00-0.50 MG/DL B-Type Natriuretic Peptide 1354.9 H <100.0 PG/ML Total Protein 7.2 6.4-8.2 GM/DL Albumin 3.2 3.2-4.5 GM/DL Procalcitonin 0.22 H <0.10 NG/ML Coronavirus 2019 (JOLIE) Negative Negative Urine Color YELLOW Urine Clarity CLOUDY Urine pH 5.0 5-9 Urine Specific [place] 1.025 H 1.016-1.022 Urine Protein 2+ H NEGATIVE Urine Glucose (UA) NEGATIVE NEGATIVE Urine Ketones NEGATIVE NEGATIVE Urine Nitrite NEGATIVE NEGATIVE Urine Bilirubin NEGATIVE NEGATIVE Urine Urobilinogen 0.2 < = 1.0 MG/DL Urine Leukocyte Esterase TRACE H NEGATIVE Urine RBC (Auto) 1+ H NEGATIVE Urine RBC NONE /HPF Urine WBC 10-25 H /HPF Urine Squamous Epithelial Cells 10-25 H /HPF Urine Crystals NONE /LPF Urine Bacteria FEW H /HPF Urine Casts PRESENT /LPF Urine Hyaline Casts RARE /LPF Urine Granular Casts 10-25 H /LPF Urine Mucus NEGATIVE /LPF Urine Culture Indicated CULTURE PENDING Micro Results Microbiology 10/23/20 Influenza Types A,B Antigen ([facility]) - Final, Complete My Orders Orders - ANABELLE CISNEROS MD Albuterol Inhaler (Ventolin Hfa) (10/23/20 09:00) Chest 1 View, Ap/Pa Only (10/23/20 09:08) Cbc With Automated Diff (10/23/20 09:18) Comprehensive Metabolic Panel (10/23/20 09:18) Blood Culture (10/23/20 09:18) Sputum Culture (10/23/20 09:18) Urinalysis (10/23/20 09:18) Urine Culture (10/23/20 09:18) Protime With Inr (10/23/20 09:18) Partial Thromboplastin Time (10/23/20 09:18) Ed Iv/Invasive Line Start (10/23/20 09:18) Ed Iv/Invasive Line Start (10/23/20 09:18) Vital Signs Adult Sepsis Patie Q15M (10/23/20 09:18) O2 (10/23/20 09:18) Remove Rings In Anticipation O (10/23/20 09:18) Lactic Acid Analyzer (10/23/20 09:18) Fibrin Degradation Products (10/23/20 09:18) Procalcitonin (Pct) (10/23/20 09:18) Hs C Reactive Protein (10/23/20 09:18) LDH (10/23/20 09:18) Influenza A And B Antigens (10/23/20 09:18) Covid 19 Inhouse Test (10/23/20 09:18) Manual Differential (10/23/20 09:11) BNP (10/23/20 09:40) Albuterol Inhaler (Ventolin Hfa) (10/23/20 10:00) Ceftriaxone For Iv Use (Rocephin For I (10/23/20 11:00) Enoxaparin Injection (Lovenox Injection) (10/23/20 11:30) Medications Given in ED Current Medications Medications Dose Ordered Sig/Kelly Route Start Time Stop Time Status Last Admin Dose Admin Albuterol Sulfate RTQ4HR PRN IH 10/23/20 10:00 10/23/20 09:00 18 GM Vital Signs/I&O 10/23/20 10/23/20 08:55 08:55 Temp 37.5 Pulse 79 Resp 18 B/P (MAP) 163/71 (101) Pulse Ox 88 O2 Delivery Room Air Nasal Cannula O2 Flow Rate 2.00 Capillary Refill : Less Than 3 Seconds Blood Pressure Mean: 101 Progress Note : Time: 11:32 Progress Note Rapid Covid and influenza screens were negative. X-ray revealed a right lower lobe pneumonia. Blood cultures and lactic acid were obtained. I do not believe patient is truly septic as her lactic acid is normal, she is afebrile, and she is not hypotensive. Antibiotic therapy with Rocephin and azithromycin was initiated. BNP was elevated which may be a reflection of her chronic kidney disease. Fluid status appears euvolemic at this time. Therefore no fluids or diuretics were administered. Patient received albuterol in the ER. She still appears to have some forced expiratory belly breathing. CPAP would be beneficial for her, especially when asleep. Oxygen saturations are easily resuscitated on nasal cannula but she quickly drops to the low 80s when oxygen i s turned off. This did not change after albuterol administration. D-dimer is elevated but she cannot have CTA due to CKD. A VQ scan has been ordered as a substitute and Lovenox was ordered in the meantime. Case was discussed with Dr. Willingham who agrees to admission. I spoke with Dr. Aldana after work-up. He will send the wound care orders to the floor for nursing staff. Diagnostic Imaging Diagonstic Imaging: Xray Plain Films/CT/US/NM/MRI: chest Comments Chest x-ray viewed by me and report reviewed. See report below: NAME: PAGE CASTRO [facility] REC#: [id number] PT STATUS: REG ER : 1965 PHYSICIAN: ANABELLE CISNEROS MD ADMIT DATE: 10/23/20/ER Draft Date of Exam:10/23/20 CHEST 1 VIEW, AP/PA ONLY INDICATION: Shortness of air and cough. TIME OF EXAM: 09:15 a.m. COMPARISON: No prior studies are available for comparison. FINDINGS: The heart is enlarged. There is some infiltrate in the right perihilar and right basilar location. Left lung is clear. No significant effusion is seen. There is no pneumothorax. IMPRESSION: Right perihilar and right basilar infiltrate. Dictated on workstation # [id number] Dict: 10/23/20 [id number] Trans: 10/23/20 1004 [facility] [id number] Interpreted by: KATHLEEN KERNS MD Departure Communication (Admissions) Time/Spoke to Admitting Phy: 11:05 Dr. Willingham Impression Primary Impression: Right lower lobe pneumonia Qualified Codes: J18.9 - Pneumonia, unspecified organism Additional Impressions: Hypoxia Person under investigation for COVID-19 Elevated d-dimer Disposition: ADMITTED INPATIENT Condition: Improved Admissions Decision to Admit Reason: Admit from ER (General) Decision to Admit/Date: Oct 23, 2020 Time/Decision to Admit Time: 09:00 Departure-Patient Inst. Referrals: HAIM CAMARENA MD (PCP/Family) Primary Care Physician ANABELLE CISNEROS MD Oct 23, 2020 11:32
[2020-10-23] MEDS ORDERED: FLU QUADRIvalent (3YOA+) 60 mcg/0.5 ml 2020-21 (AFLURIA) IM ONE (12:45)
[2020-10-23] MEDS ORDERED: AZITHROMYCIN INJECTION 500 MG in NS (IVPB) 250 ML IV SCH (14:00)
[2020-10-23] MEDS ORDERED: ENOXAPARIN 300 MG/3 ML (LOVENOX) MULTI-DOSE VIAL SQ SCH (14:00)
[2020-10-23 14:20] VITALS: BP 163/71
[2020-10-23] MEDS ORDERED: RT-ALBUTEROL/IPRATROPIUM 3 ML (DUONEB) VIAL INH PRN (14:30)
[2020-10-23] MEDS ORDERED: inSUlin ASPART (NovoLOG) 1 UNIT/0.01 ML (CHARGE PER UNIT) SC SCH (15:00)
[2020-10-23] MEDS ORDERED: TIMO5DRO5 TOP (15:16)
[2020-10-23] MEDS ORDERED: ALPR0.5T7 PO (15:16)
[2020-10-23] MEDS ORDERED: INSU100I14 SC (15:16)
[2020-10-23] MEDS ORDERED: FEXO180T84 PO (15:16)
[2020-10-23] MEDS ORDERED: CARV25TA PO (15:16)
[2020-10-23] MEDS ORDERED: INSU100I32 SC (15:16)
--- NOTE | 2020-10-23 16:20 | History & Physical-Hospitalist ---
History of Present Illness HPI/Chief Complaint Pt is a 54yoCF with a PMH of IDDMII, HTN, CKD who presented to the ER due to hypoxia. She states over the past couple of days she has had chills, low grade temperatures, and some SOB and was around a family member with "bronchitis." She presented to wound care today for hyperbaric treatment and was found to be hypoxic in the 80s. She noticed she as more short of breath when she laid back in the machine. She denies any known COVID exposure andstates she doesn't go anywhere but the hospital for her treatments. She was found to have a right basilar infiltrate. She reports no previous history of oxygen use. Source: patient Date Seen 10/23/20 Time Seen by a Provider: 16:10 Attending Physician Nehemias Willingham MD PCP Lenka Pinto MD Referring Physician Date of Admission Oct 23, 2020 at 11:21 Home Medications & Allergies Home Medications Reviewed patient Home Medication Reconciliation performed by pharmacy medication reconciliations dialysis biomed technician and/or nursing. Patients Allergies have been reviewed. Allergies Allergies Coded Allergies No Known Drug Allergies (Unverified04/20/20) Past Cyvvwsi-Bzmitf-Rlkusb Hx Past Med/Social Hx: Reviewed Nursing Past Med/Soc Hx Patient Social History Alcohol Use: Denies Use Alcohol Beverage of Choice: Other Recreational Drug Use: No Former Smoker, Quit: May 28, 2007 Type Used: Cigarettes 2nd Hand Smoke Exposure: No Recent Foreign Travel: No Contact w/other who traveled: No Recent Hopitalizations: Yes (03/2020) Recent Infectious Disease Expo: No Immunizations Up To Date Pediatric: No Date of Pneumonia Vaccine: Jul 28, 2018 Date of Influenza Vaccine: Aug 23, 2019 Seasonal Allergies Seasonal Allergies: Yes Past Medical History Surgeries: Amputation Currently Using CPAP: No Currently Using BIPAP: No Cardiac: Hypertension, Peripheral Vascular Genitourinary: Renal Failure (Chronic kidney disease) Endocrine: Diabetes, Non-Insulin dep History of Blood Disorders: Yes (blood clot right leg) Adverse Reaction to Blood Salcedo: No Family History Reviewed Nursing Family Hx Back surgery G8 BROTHER Blood clots G8 BROTHER Cardiovascular disease 19 MOTHER FH: lung cancer 19 FATHER FH: skin cancer G8 BROTHER FH: total knee replacement G8 BROTHER Hypertension 19 FATHER 19 MOTHER G8 BROTHER G8 BROTHER G8 SISTER Non-hodgkins lymphoma G8 SISTER Stem cell therapy G8 SISTER No Pertinent Family Hx Review of Systems Constitutional: chills, fever, malaise Respiratory: dyspnea on exertion, short of breath Physical Exam Physical Exam Vital Signs Vital Signs - First Documented 10/23/20 10/23/20 08:55 14:20 Temp 37.5 Pulse 79 Resp 18 B/P (MAP) 163/71 (101) Pulse Ox 88 O2 Delivery Room Air O2 Flow Rate 2.00 FiO2 28 Capillary Refill : Less Than 3 Seconds Height, Weight, BMI Height: '" Weight: lbs. oz. kg; 47.00 BMI Method: General Appearance: No Apparent Distress, Chronically ill, Obese HEENT: PERRL/EOMI, Moist Mucous Membranes; No Scleral Icterus (L), No Scleral Icterus (R) Neck: Normal Inspection, Supple Respiratory: Lungs Clear, No Accessory Muscle Use, No Respiratory Distress Cardiovascular: Regular Rate, Rhythm, No JVD, No Murmur Gastrointestinal: Normal Bowel Sounds, Non Tender, Soft Extremity: Normal Capillary Refill, No Calf Tenderness, No Pedal Edema Neurologic/Psychiatric: Alert, Oriented x3, Normal Mood/Affect Skin: Normal Color, Warm/Dry Results Results/Procedures Labs Laboratory Tests 10/23/20 09:11 Patient resulted labs reviewed. Imaging: Reviewed Imaging Report Imaging [facility], [place] NAME: PAGE CASTRO [facility] REC#: [id number] PT STATUS: ADM IN : 1965 PHYSICIAN: ANABELLE CISNEROS MD ADMIT DATE: 10/23/20 Signed Date of Exam:10/23/20 CHEST 1 VIEW, AP/PA ONLY INDICATION: Shortness of air and cough. TIME OF EXAM: 09:15 a.m. COMPARISON: No prior studies are available for comparison. FINDINGS: The heart is enlarged. There is some infiltrate in the right perihilar and right basilar location. Left lung is clear. No significant effusion is seen. There is no pneumothorax. IMPRESSION: Right perihilar and right basilar infiltrate. Dictated by: Dictated on workstation # [id number] Dict: 10/23/20 0956 Trans: 10/23/20 1557 [facility] [id number] Interpreted by: KATHLEEN KERNS MD Electronically signed by: KATHLEEN KERNS MD 10/23/20 4728 Assessment/Plan Admission Diagnosis CAP Admission Status: Inpatient Order (span 2 midnights) Reason for Inpatient Admission: see below Assessment and Plan CAP Hypoxia COVID PUI Elevated d-dimer Continue on Rocephin and Azithro Does not mean sepsis criteria Rapid COVID negative, PCR pending V/Q scan ordered for tomorrow Lovenox ordered for therapeutic dosing IDDMII Chronic diabetic foot wound Continue home insulin Dr Aldana consulted, appreciate recs- defer management to him Right leg slightly erythematous but patient states this is baseline HTN BP elevated on arrival Resume home meds CKD Around her baseline, trend DVT ppx: Lovenox as above Diagnosis/Problems Diagnosis/Problems (1) Pneumonia Status: Acute Qualifiers: Pneumonia type: due to unspecified organism Laterality: right Lung location: lower lobe of lung Qualified Codes: J18.9 - Pneumonia, unspecified organism (2) Hypoxia Status: Acute (3) Person under investigation for COVID-19 Status: Acute (4) Right lower lobe pneumonia Status: Acute Qualifiers: Pneumonia type: due to unspecified organism Qualified Codes: J18.9 - Pneumonia, unspecified organism (5) Elevated d-dimer Status: Acute (6) T2DM (type 2 diabetes mellitus) Status: Acute Qualifiers: Diabetes mellitus custodial insulin use: with custodial use Diabetes mellitus complication status: with skin complications Diabetes mellitus complication detail: with foot ulcer Qualified Codes: E11.621 - Type 2 diabetes mellitus with foot ulcer; L97.509 - Non-pressure chronic ulcer of other part of unspecified foot with unspecified severity; 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
[2020-10-23 16:34] VITALS: BP 164/77
[2020-10-23 17:05] VITALS: BP 164/77
[2020-10-23] MEDS: inSUlin ASPART (NovoLOG) 1 UNIT/0.01 ML (CHARGE PER UNIT) SC SCH ×2 (17:12→20:53)
[2020-10-23] MEDS: VITAMIN D3 25 MCG (1,000 UNITS) TABLET PO SCH (17:46)
--- NOTE | 2020-10-23 18:19 | Wound Care Assessment ---
Wound Care Assessment Date Seen by Provider: Oct 23, 2020 Time Seen by Provider: 17:45 Chief Complaint R foot wound. HPI The patient is a 54 year old female with a Riley Grade 3 diabetic ulcer of the plantar aspect of the right foot. Prior to scheduled HBOT at [facility] Center she complained of shortness of breath, was noted to be hypoxic, and sent to ER for evaluation. The R foot wound is stable. Dressings are changed to 1/4 strength Dakin's BID while in hospital. Past Medical History: Admits Diabetes Type II Pneumonia Recreational Drug Use: No Alcohol Use: Denies Use Review of Systems Pulmonary: Dyspnea Cardiovascular: No: Chest Pain Exam Vital Signs Date Time Temp Pulse Resp B/P (MAP) Pulse Ox O2 Delivery O2 Flow Rate FiO2 10/23/20 17:05 36.3 80 24 164/77 94 Nasal Cannula 2.00 2.00 10/23/20 14:20 28 Capillary Refill : Less Than 3 Seconds General Appearance: mild distress Extremities: other (Stable R foot ulcer.) Results Laboratory Tests 10/23/20 09:11: White Blood Count 17.7H, Red Blood Count 3.49L, Hemoglobin 10.1L, Hematocrit 33L , Mean Corpuscular Volume 94, Mean Corpuscular Hemoglobin 29, Mean Corpuscular Hemoglobin Concent 31L, Red Cell Distribution Width 15.2H, Platelet Count 195, Mean Platelet Volume 10.9, Immature Granulocyte % (Auto) 1, Neutrophils (%) (Auto) 93H, Lymphocytes (%) (Auto) 3L, Monocytes (%) (Auto) 3, Eosinophils (%) (Auto) 0, Basophils (%) (Auto) 0, Neutrophils # (Auto) 16.5H, Lymphocytes # (Auto) 0.6L, Monocytes # (Auto) 0.5, Eosinophils # (Auto) 0.0, Basophils # (Auto) 0.0, Immature Granulocyte # (Auto) 0.1, Neutrophils % (Manual) 94, Lymphocytes % (Manual) 3, Monocytes % (Manual) 3, Blood Morphology Comment NORMAL, Prothrombin Time 15.5H, INR Comment 1.2, Activated Partial Thromboplast Time 31, D-Dimer 1.26H, Sodium Level 139, Potassium Level 4.1, Chloride Level 103, Carbon Dioxide Level 31, Anion Gap 5, Blood Urea Nitrogen 40H, Creatinine 2.51H, Estimat Glomerular Filtration Rate 20, BUN/Creatinine Ratio 16, Glucose Level 162H, Lactic Acid Level 1.37, Calcium Level 9.5, Corrected Calcium 10.1, Total Bilirubin 0.5, Aspartate Amino Transf (AST/SGOT) 32, Alanine Aminotransferase (ALT/SGPT) 40, Alkaline Phosphatase 46, Lactate Dehydrogenase 326H, C-Reactive Protein High Sensitivity 6.41H, B-Type Natriuretic Peptide 1354.9H, Total Protein 7.2, Albumin 3.2, Procalcitonin 0.22H, Coronavirus 2019 (JOLIE) Negative 10/23/20 10:25: Urine Color YELLOW, Urine Clarity CLOUDY, Urine pH 5.0, Urine Specific Hinckley 1.025H, Urine Protein 2+H, Urine Glucose (UA) NEGATIVE, Urine Ketones NEGATIVE, Urine Nitrite NEGATIVE, Urine Bilirubin NEGATIVE, Urine Urobilinogen 0.2, Urine Leukocyte Esterase TRACEH, Urine RBC (Auto) 1+H, Urine RBC NONE, Urine WBC 10- 25H, Urine Squamous Epithelial Cells 10-25H, Urine Crystals NONE, Urine Bacteria FEWH, Urine Casts PRESENT, Urine Hyaline Casts RARE, Urine Granular Casts 10-25H , Urine Mucus NEGATIVE, Urine Culture Indicated CULTURE PENDING 10/23/20 16:41: Glucometer 117H Microbiology 10/23/20 Influenza Types A,B Antigen (SULEIMAN) - Final, Complete Microbiology 10/23/20 Influenza Types A,B Antigen (SULEIMAN) - Final, Complete Assessment/Plan/Dx 1. R foot ulcer, Riley Grade 3, stable. 2. Pneumonia, R/O COVID-19 Plan: Dakin's dressings to R foot wound BID. EUFEMIA JOSEPH MD Oct 23, 2020 18:19
[2020-10-23 19:30] VITALS: BP 175/79
[2020-10-23] MEDS: CARVEDILOL 12.5 MG (COREG) TABLET PO SCH (20:53)
[2020-10-23] MEDS: amLODIPine 10 MG (NORVASC) TAB PO SCH (20:53)
[2020-10-23] MEDS: CALCIUM CARBONATE 500 MG (TUMS) TAB.CHEW PO SCH (20:53)
[2020-10-23] MEDS: diphenhydrAMINE 25 MG TAB (BENADRYL) PO SCH (20:53)
[2020-10-23] MEDS: SIMvastatin 10 MG (ZOCOR) TAB PO SCH (20:53)
[2020-10-23] MEDS: DAKIN'S 1/4 STRENGTH (0.125%) 473 ML BTL TOP SCH (20:55)
[2020-10-23] MEDS ORDERED: RT-ALBUTEROL/IPRATROPIUM 3 ML (DUONEB) VIAL INH SCH (21:00)
[2020-10-23] MEDS: RT-ALBUTEROL INHALER HFA (VENTOLIN HFA) 18 GM IH SCH (21:44)
[2020-10-24] VITALS: BP 121/83
[2020-10-24 03:47] VITALS: BP 136/63
[2020-10-24] MEDS: inSUlin ASPART (NovoLOG) 1 UNIT/0.01 ML (CHARGE PER UNIT) SC SCH ×4 (05:39→20:24)
[2020-10-24] MEDS: MULTIVIT W/MINERALS TAB (THERAGRAN M) PO SCH (06:18)
[2020-10-24] MEDS: RT-ALBUTEROL INHALER HFA (VENTOLIN HFA) 18 GM IH SCH ×3 (07:06→19:15)
[2020-10-24 08:00] VITALS: BP_SYST 113; BP_DIAS 5; BP_DIAS 55
--- NOTE | 2020-10-24 08:40 | Diagnostic Imaging Report ---
INDICATION: Shortness of air and desaturation. TECHNIQUE: The patient was administered 5.3 mCi of technetium 99m MAA intravenously and imaging over the chest was performed in multiple obliquities. FINDINGS: There is homogeneous perfusion to both lungs. No pleural-based perfusion defects are seen. IMPRESSION: Normal perfusion lung scan. Dictated by: Dictated on workstation # [id number]
[2020-10-24] MEDS: CLOPIDOGREL 75 MG (PLAVIX) TABLET PO SCH (09:49)
[2020-10-24] MEDS: FUROSEMIDE 40 MG (LASIX) TAB PO SCH (09:49)
[2020-10-24] MEDS: CARVEDILOL 12.5 MG (COREG) TABLET PO SCH ×2 (09:49→20:16)
[2020-10-24] MEDS: VITAMIN D3 25 MCG (1,000 UNITS) TABLET PO SCH (09:49)
[2020-10-24] MEDS: CALCIUM CARBONATE 500 MG (TUMS) TAB.CHEW PO SCH ×2 (09:49→20:16)
[2020-10-24] MEDS: DAKIN'S 1/4 STRENGTH (0.125%) 473 ML BTL TOP SCH ×2 (10:43→20:16)
--- NOTE | 2020-10-24 11:45 | Progress Note - Hospitalist ---
Subjective HPI/CC On Admission Date Seen by Provider: Oct 24, 2020 Time Seen by Provider: 11:40 Pt is a 54yoCF with a PMH of IDDMII, HTN, CKD who presented to the ER due to hypoxia. She states over the past couple of days she has had chills, low grade temperatures, and some SOB and was around a family member with "bronchitis." She presented to wound care today for hyperbaric treatment and was found to be hypoxic in the 80s. She noticed she as more short of breath when she laid back in the machine. She denies any known COVID exposure andstates she doesn't go anywhere but the hospital for her treatments. She was found to have a right basilar infiltrate. She reports no previous history of oxygen use. Subjective/Events-last exam Pt reports feeling more short of breath this morning. Normally sleep with CPAP but didn't have it last night. BiPAP at bedside per her request but feeling better since sitting up. She is negative for COVID on PCR but given worsening dyspnea will repeat PCR. Focused Exam Lactate Level 10/23/20 09:11: Lactic Acid Level 1.37 Objective Exam Vital Signs Vital Signs Date Time Temp Pulse Resp B/P (MAP) Pulse Ox O2 Delivery O2 Flow Rate FiO2 10/24/20 11:13 83 25 100 40.00 10/24/20 08:00 36.1 113/5 (41) Nasal Cannula 10/23/20 14:20 28 Capillary Refill : Less Than 3 Seconds General Appearance: No Apparent Distress, Chronically ill, Obese Respiratory: Decreased Breath Sounds; No Rhonci, No Wheezing; Other (on 3lpm NC) Cardiovascular: Regular Rate, Rhythm, No Murmur Gastrointestinal: Normal Bowel Sounds, Non Tender, Soft Neurologic/Psychiatric: Alert, Oriented x3 Results/Procedures Lab Patient resulted labs reviewed. Imaging: Reviewed Imaging Report Assessment/Plan Assessment and Plan Assess & Plan/Chief Complaint CAP Hypoxia COVID PUI Elevated d-dimer Continue on Rocephin and Azithro Rapid COVID negative, PCR pending V/Q scan negative Repeat COVID PCR given more dyspneic Repeat procal COVID ab ordered Pulm consulted, appreciate assistance BIPAP prn IDDMII Chronic diabetic foot wound Was hypoglycemia on home insulin, will decrease dose to [address] Aldana consulted, appreciate recs- defer management to him Right leg slightly erythematous but patient states this is baseline HTN BP elimproved today Resume home meds CKD Around her baseline, trend DVT ppx: Lovenox as above Diagnosis/Problems Diagnosis/Problems (1) Pneumonia Status: Acute Qualifiers: Pneumonia type: due to unspecified organism Laterality: right Lung location: lower lobe of lung Qualified Codes: J18.9 - Pneumonia, unspecified organism (2) Hypoxia Status: Acute (3) Person under investigation for COVID-19 Status: Acute (4) Right lower lobe pneumonia Status: Acute Qualifiers: Pneumonia type: due to unspecified organism Qualified Codes: J18.9 - Pneumonia, unspecified organism (5) Elevated d-dimer Status: Acute (6) T2DM (type 2 diabetes mellitus) Status: Acute 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 Diabetes mellitus complication status: with skin complications Diabetes mellitus complication detail: with foot ulcer Qualified Codes: E11.621 - Type 2 diabetes mellitus with foot ulcer; L97.509 - Non-pressure chronic ulcer of other part of unspecified foot with unspecified severity; Z79.4 - long-term (current) use of insulin (7) Diabetic infection of right foot Status: Acute (8) CKD (chronic kidney disease) stage 4, GFR 15-29 ml/min Status: Chronic (9) HTN (hypertension) Status: Chronic Qualifiers: Hypertension type: essential hypertension Qualified Codes: I10 - Essential (primary) hypertension Clinical Quality Measures DVT/VTE Risk/Contraindication: Risk Factor Score Per Nursin RFS Level Per Nursing on Admit: 4+=Very High NEHEMIAS THOMAS MD Oct 24, 2020 11:45
[2020-10-24 12:00] VITALS: BP 149/72
[2020-10-24] MEDS ORDERED: ENOXAPARIN 300 MG/3 ML (LOVENOX) MULTI-DOSE VIAL SQ SCH (12:00)
[2020-10-24] MEDS: cefTRIAXone FOR IV USE 1,000 MG in WATER (STERILE) FOR INJECTION 10 ML IV SCH (12:41)
[2020-10-24] MEDS: ENOXAPARIN 40 MG/0.4 ML (LOVENOX) SYR SC SCH (12:41)
[2020-10-24 12:54] LABS: MEAN PLATELET VOLUME 11.3 fL (9.0-12.2); WHITE BLOOD COUNT 8.6 10^3/uL (4.3-11.0)
[2020-10-24 13:15] LABS: CALCIUM 9.4 MG/DL (8.5-10.1); CREATININE SERUM 2.81 MG/DL (0.60-1.30); POTASSIUM 4.2 MMOL/L (3.6-5.0)
--- NOTE | 2020-10-24 13:57 | Pulmonary Consultation ---
History of Present Illness History of Present Illness Date Seen by Provider: Oct 24, 2020 Time Seen by Provider: 13:52 Date of Admission Allergies and Home Medications Allergies Coded Allergies: No Known Drug Allergies (Unverified , 04/20/20) Home Medications Alprazolam 0.5 Mg Tablet, 0.5 MG PO DAILY PRN for HYPERBERIC THERAPY, (Reported) TAKES 30 MINUTES PRIOR TO HBOT Amlodipine Besylate 10 Mg Tablet, 10 MG PO HS, (Reported) Calcium Carbonate 500 Mg Tablet, 500 MG PO BID, (Reported) Carvedilol 25 Mg Tablet, 25 MG PO BID, (Reported) Cholecalciferol (Vitamin D3) 50 Mcg Tablet, 50 MCG PO BID, (Reported) Clopidogrel Bisulfate 75 Mg Tablet, 75 MG PO DAILY, (Reported) Diphenhydramine HCl 25 Mg Capsule, 50 MG PO HS, (Reported) Dulaglutide 1.5 Mg/0.5 Ml Pen.injctr, 1.5 MG SQ Ruffin, (Reported) Fexofenadine HCl 180 Mg Tablet, 180 MG PO DAILY, (Reported) Furosemide 40 Mg Tablet, 40 MG PO DAILY, (Reported) Insulin Aspart 300 Units/3 Ml Solution, UNIT SC TIDAC, (Reported) USES PER SLIDING SCALE Insulin Degludec 100 Unit/1 Ml Insuln.pen, 110 UNIT SC DAILY, (Reported) TAKES 2 SHOTS OF 55 UNITS EACH TO EQUAL 110 UNITS Lovastatin 20 Mg Tablet, 20 MG PO DAILY, (Reported) Mv-Mn/Folic Acid/Calcium/Vit K 1 Each Tablet, 1 EACH PO DAILY, (Reported) Timolol Maleate 5 Ml Drops, DROP TOP THU,,FR, (Reported) USE ON RIGHT FOOT AFTER APPLYING THE DROPS TO [employer] DRESSING Past Uvnajon-Bmamsy-Rnckqg Hx Past Med/Social Hx: Reviewed Nursing Past Med/Soc Hx Patient Social History Alcohol Use: Denies Use Number of Drinks Today: II Alcohol Beverage of Choice: Other Recreational Drug Use: No Type Used: Cigarettes Former Smoker, Quit: May 28, 2007 2nd Hand Smoke Exposure: No Recent Foreign Travel: No Contact w/Someone Who Travel: No Recent Infectious Disease Expo: No Recent Hopitalizations: Yes (03/2020) Immunizations Up To Date PED Vaccines UTD: No Date of Pneumonia Vaccine: Jul 28, 2018 Date of Influenza Vaccine: Aug 23, 2019 Seasonal Allergies Seasonal Allergies: Yes Past Medical History Surgeries: Yes (TOE AMPUTATION, PARTIAL LEFT FOOT AMPUTATION) Amputation Respiratory: No Sleep Apnea Currently Using CPAP: No Currently Using BIPAP: No Cardiac: Yes Hypertension, Peripheral Vascular Neurological: No : No Genitourinary: Yes Renal Failure (Chronic kidney disease) Gastrointestinal: No Musculoskeletal: No Endocrine: Yes (Severe obesity) Diabetes, Non-Insulin dep HEENT: No Cancer: No Psychosocial: No Integumentary: Yes (RIGHT FOOT WOUND) Blood Disorders: Yes (blood clot right leg) Adverse Reaction/Blood Tranf: No Family Medical History Reviewed Nursing Family Hx Back surgery G8 BROTHER Blood clots G8 BROTHER Cardiovascular disease 19 MOTHER FH: lung cancer 19 FATHER FH: skin cancer G8 BROTHER FH: total knee replacement G8 BROTHER Hypertension 19 FATHER 19 MOTHER G8 BROTHER G8 BROTHER G8 SISTER Non-hodgkins lymphoma G8 SISTER Stem cell therapy G8 SISTER No Pertinent Family Hx Review of Systems Time Seen by Provider: 14:02 Sepsis Event Evaluation Height, Weight, BMI Height: '" Weight: lbs. oz. kg; 48.67 BMI Method: Exam Exam Vital Signs Date Time Temp Pulse Resp B/P (MAP) Pulse Ox O2 Delivery O2 Flow Rate FiO2 10/24/20 12:00 35.8 88 26 149/72 (97) 92 Nasal Cannula 3.00 10/24/20 11:13 83 25 100 40.00 10/24/20 08:00 36.1 78 24 113/55 (74) 92 Nasal Cannula 1.50 10/24/20 08:00 92 Nasal Cannula 3.00 10/24/20 07:06 92 Nasal Cannula 2.00 10/24/20 06:35 77 10/24/20 03:47 36.0 72 24 136/63 (87) 94 Nasal Cannula 1.50 10/24/20 01:00 72 10/24/20 00:00 35.4 74 22 121/83 (96) 93 Nasal Cannula 1.50 10/23/20 21:44 92 Nasal Cannula 2.00 10/23/20 20:00 92 Nasal Cannula 2.00 10/23/20 19:30 36.3 86 23 175/79 (111) 94 Nasal Cannula 2.00 10/23/20 19:00 83 10/23/20 17:05 36.3 80 24 164/77 94 Nasal Cannula 2.00 2.00 10/23/20 16:58 94 Nasal Cannula 2.00 10/23/20 16:34 36.3 80 24 164/77 (106) 94 Nasal Cannula 2.00 10/23/20 14:33 81 10/23/20 14:20 37.5 79 96 28 I & O 10/24/20 07:00 Intake Total 1265 ml Output Total 0 ml Balance 1265 ml Height & Weight Height: '" Weight: lbs. oz. kg; 48.67 BMI Method: General Appearance: No Apparent Distress, Chronically ill, Obese HEENT: PERRL/EOMI, Moist Mucous Membranes; No Scleral Icterus (L), No Scleral Icterus (R) Neck: Normal Inspection, Supple Respiratory: Decreased Breath Sounds; No Rhonci, No Wheezing; Other (on 3lpm NC) Cardiovascular: Regular Rate, Rhythm, No Murmur Capillary Refill: Less Than 3 Seconds Extremity: Normal Capillary Refill, No Calf Tenderness, No Pedal Edema Neurologic/Psychiatric: Alert, Oriented x3 Skin: Normal Color, Warm/Dry Results Lab Laboratory Tests 10/23/20 09:11 10/24/20 12:35 Assessment/Plan Assessment/Plan CAP with hypoxia -COVID PUI - Rocephin and Azithro -Check CT of chest without contrast -Rapid COVID negative, PCR pending Repeat procal COVID ab ordered BIPAP prn Pulmonary edema -Lasix -Check Echo Elevated d-dimer -V/Q scan negative IDDMII Chronic diabetic foot wound Was hypoglycemia on home insulin, will decrease dose to [address] Aldana consulted, appreciate recs- defer management to him Right leg slightly erythematous but patient states this is baseline HTN BP elimproved today Resume home meds CKD Around her baseline, trend DVT ppx: Lovenox as above GHANSHYAM HICKS DO Oct 24, 2020 13:57
[2020-10-24] MEDS: AZITHROMYCIN 250 MG TAB (ZITHROMAX) PO SCH (14:51)
[2020-10-24 16:00] VITALS: BP 179/82
--- NOTE | 2020-10-24 16:45 | Diagnostic Imaging Report ---
EXAMINATION: CT Chest without contrast. TECHNIQUE: Multiple contiguous axial images were obtained through the chest without the use of intravenous contrast. All CT scans use one or more of the following dose optimizing techniques: automated exposure control, MA and/or KvP adjustment based on a patient size and exam type, or iterative reconstruction. HISTORY: Pneumonia, hypoxia. COMPARISON: Chest radiograph of 10/23/2020. FINDINGS: Thyroid: The thyroid is normal. Mediastinum: Heart size is normal without significant pericardial effusion. Calcifications of the aorta and coronary vessels. Thoracic aorta is normal in caliber. No pathologically enlarged lymphadenopathy. Lungs and airways: There is a large right and a moderate left pleural effusion with adjacent atelectasis or consolidation. No pneumothorax. Air bronchograms are seen within the lower lobes. Upper abdomen: Cholelithiasis. Calcifications of the aorta and branching vessels. Musculoskeletal: Degenerative changes of the spine without suspicious osseous lesion or compression fracture. IMPRESSION: Large right and moderate left pleural effusions with adjacent atelectasis or pneumonia. Dictated by: Dictated on workstation # [id number]
[2020-10-24] MEDS: ADVAIR HFA 115/21 MCG INHALER 8 GM IH SCH (19:15)
[2020-10-24] MEDS: SIMvastatin 10 MG (ZOCOR) TAB PO SCH (20:16)
[2020-10-24] MEDS: amLODIPine 10 MG (NORVASC) TAB PO SCH (20:16)
[2020-10-24] MEDS: diphenhydrAMINE 25 MG TAB (BENADRYL) PO SCH (20:16)
[2020-10-24 20:20] VITALS: BP 154/70
[2020-10-25] VITALS (7 sets, daily range): BP systolic 13–210; BP diastolic 61–88
[2020-10-25] MEDS: inSUlin ASPART (NovoLOG) 1 UNIT/0.01 ML (CHARGE PER UNIT) SC SCH ×4 (05:13→21:01)
[2020-10-25] MEDS: RT-ALBUTEROL INHALER HFA (VENTOLIN HFA) 18 GM IH SCH ×5 (05:28→21:03)
[2020-10-25] MEDS: MULTIVIT W/MINERALS TAB (THERAGRAN M) PO SCH (05:59)
[2020-10-25 07:17] LABS: HEMOGLOBIN 8.5 g/dL (11.5-16.0); MEAN PLATELET VOLUME 11.7 fL (9.0-12.2); WHITE BLOOD COUNT 6.7 10^3/uL (4.3-11.0)
[2020-10-25 07:22] LABS: POTASSIUM 4.1 MMOL/L (3.6-5.0)
[2020-10-25 07:23] LABS: CALCIUM 9.3 MG/DL (8.5-10.1)
[2020-10-25 07:27] LABS: CREATININE SERUM 2.89 MG/DL (0.60-1.30)
[2020-10-25] MEDS: VITAMIN D3 25 MCG (1,000 UNITS) TABLET PO SCH ×2 (08:00→17:48)
[2020-10-25] MEDS: CALCIUM CARBONATE 500 MG (TUMS) TAB.CHEW PO SCH ×2 (09:00→21:05)
[2020-10-25] MEDS: CARVEDILOL 12.5 MG (COREG) TABLET PO SCH ×2 (09:00→21:05)
[2020-10-25] MEDS: FUROSEMIDE 40 MG (LASIX) TAB PO SCH (09:00)
[2020-10-25] MEDS: CLOPIDOGREL 75 MG (PLAVIX) TABLET PO SCH (09:00)
[2020-10-25] MEDS: ADVAIR HFA 115/21 MCG INHALER 8 GM IH SCH ×2 (09:01→21:03)
[2020-10-25] MEDS: DAKIN'S 1/4 STRENGTH (0.125%) 473 ML BTL TOP SCH ×2 (09:01→21:06)
--- NOTE | 2020-10-25 09:26 | Pulmonary Progress Note ---
Subjective Time Seen by a Provider: 09:19 Subjective/Events-last exam No complications noted. Sepsis Event Evaluation Height, Weight, BMI Height: '" Weight: lbs. oz. kg; 48.67 BMI Method: Focused Exam Lactate Level 10/23/20 09:11: Lactic Acid Level 1.37 Exam Exam Vital Signs Date Time Temp Pulse Resp B/P (MAP) Pulse Ox O2 Delivery O2 Flow Rate FiO2 10/25/20 08:00 NIV Bilevel 10/25/20 07:00 71 10/25/20 04:00 36.0 76 20 137/65 (89) 97 NIV Bilevel 35.00 10/25/20 01:00 73 10/25/20 00:08 36.1 76 21 131/68 (89) 98 NIV Bilevel 35.00 10/24/20 20:20 36.4 86 20 154/70 (98) 92 Nasal Cannula 2.00 10/24/20 20:00 92 Nasal Cannula 2.00 10/24/20 19:16 92 Nasal Cannula 2.00 10/24/20 19:00 86 10/24/20 16:00 36.9 85 24 179/82 (114) 92 Nasal Cannula 2.00 10/24/20 14:54 82 20 99 35.00 10/24/20 12:48 84 10/24/20 12:00 35.8 88 26 149/72 (97) 92 Nasal Cannula 3.00 10/24/20 11:13 83 25 100 40.00 I & O 10/25/20 07:00 Intake Total 997 ml Output Total 125 ml Balance 872 ml Height & Weight Height: '" Weight: lbs. oz. kg; 48.67 BMI Method: General Appearance: No Apparent Distress, Chronically ill, Obese HEENT: PERRL/EOMI, Moist Mucous Membranes; No Scleral Icterus (L), No Scleral Icterus (R) Neck: Normal Inspection, Supple Respiratory: Decreased Breath Sounds; No Rhonci, No Wheezing; Other (on 3lpm NC) Cardiovascular: Regular Rate, Rhythm, No Murmur Capillary Refill: Less Than 3 Seconds Extremity: Normal Capillary Refill, No Calf Tenderness, No Pedal Edema Neurologic/Psychiatric: Alert, Oriented x3 Skin: Normal Color, Warm/Dry Results Lab Laboratory Tests 10/24/20 12:35 10/25/20 05:51 Assessment/Plan Assessment/Plan CAP with hypoxia -COVID negative - Rocephin and Azithro -Check CT of chest without contrast -Reviewed - bilateral pleural effusion R>L procal BIPAP prn Pulmonary edema -Lasix -Check Echo -- pending Elevated d-dimer -V/Q scan negative IDDMII Chronic diabetic foot wound HTN CKD DVT ppx: Lovenox as above GHANSHYAM HICKS DO Oct 25, 2020 09:26
[2020-10-25] MEDS: cefTRIAXone FOR IV USE 1,000 MG in WATER (STERILE) FOR INJECTION 10 ML IV SCH (12:18)
[2020-10-25] MEDS: ENOXAPARIN 40 MG/0.4 ML (LOVENOX) SYR SC SCH (12:25)
--- NOTE | 2020-10-25 13:09 | Progress Note - Hospitalist ---
Subjective HPI/CC On Admission Date Seen by Provider: Oct 25, 2020 Time Seen by Provider: 13:03 Pt is a 54yoCF with a PMH of IDDMII, HTN, CKD who presented to the ER due to hypoxia. She states over the past couple of days she has had chills, low grade temperatures, and some SOB and was around a family member with "bronchitis." She presented to wound care today for hyperbaric treatment and was found to be hypoxic in the 80s. She noticed she as more short of breath when she laid back in the machine. She denies any known COVID exposure andstates she doesn't go anywhere but the hospital for her treatments. She was found to have a right basilar infiltrate. She reports no previous history of oxygen use. Subjective/Events-last exam Pt reports feeling much better today. Breathing is improved. No complaints. A bout to eat lunch. Focused Exam Lactate Level 10/23/20 09:11: Lactic Acid Level 1.37 Objective Exam Vital Signs Vital Signs Date Time Temp Pulse Resp B/P (MAP) Pulse Ox O2 Delivery O2 Flow Rate FiO2 10/25/20 12:33 81 10/25/20 12:00 36.2 22 13/61 (45) 92 NIV Bilevel 35.00 10/23/20 14:20 28 Capillary Refill : Less Than 3 Seconds General Appearance: No Apparent Distress, WD/WN Respiratory: No Accessory Muscle Use, Decreased Breath Sounds; No Rhonci, No Wheezing; Other (on 2lpm) Cardiovascular: Regular Rate, Rhythm, No Murmur Gastrointestinal: Normal Bowel Sounds, Non Tender, Soft Neurologic/Psychiatric: Alert, Oriented x3 Results/Procedures Lab Laboratory Tests 10/25/20 05:51 Patient resulted labs reviewed. Imaging: Reviewed Imaging Report Assessment/Plan Assessment and Plan Assess & Plan/Chief Complaint CAP Hypoxia COVID PUI Elevated d-dimer Continue on Rocephin and Azithro Rapid COVID negative, PCR negative x2 V/Q scan negative Repeat procal COVID ab negative Pulm consulted, appreciate assistance BIPAP prn IDDMII Chronic diabetic foot wound Better with [address] Aldana consulted, appreciate recs- defer management to him Right leg slightly erythematous but patient states this is baseline HTN BP very elevated this AM before meds- trend CKD Around her baseline, trend DVT ppx: Lovenox as above Diagnosis/Problems Diagnosis/Problems (1) Pneumonia Status: Acute Qualifiers: Pneumonia type: due to unspecified organism Laterality: right Lung location: lower lobe of lung Qualified Codes: J18.9 - Pneumonia, unspecified organism (2) Hypoxia Status: Acute (3) Person under investigation for COVID-19 Status: Acute (4) Right lower lobe pneumonia Status: Acute Qualifiers: Pneumonia type: due to unspecified organism Qualified Codes: J18.9 - Pneumonia, unspecified organism (5) Elevated d-dimer Status: Acute (6) T2DM (type 2 diabetes mellitus) Status: Acute Qualifiers: Diabetes mellitus group home insulin use: with group home use Diabetes mellitus complication status: with skin complications Diabetes mellitus complication detail: with foot ulcer Qualified Codes: E11.621 - Type 2 diabetes mellitus with foot ulcer; L97.509 - Non-pressure chronic ulcer of other part of unspecified foot with unspecified severity; Z79.4 - FDC (current) use of insulin (7) Diabetic infection of right foot Status: Acute (8) CKD (chronic kidney disease) stage 4, GFR 15-29 ml/min Status: Chronic (9) HTN (hypertension) Status: Chronic Qualifiers: Hypertension type: essential hypertension Qualified Codes: I10 - Essential (primary) hypertension Clinical Quality Measures DVT/VTE Risk/Contraindication: Risk Factor Score Per Nursin RFS Level Per Nursing on Admit: 4+=Very High NEHEMIAS THOMAS MD Oct 25, 2020 13:09
[2020-10-25] MEDS: AZITHROMYCIN 250 MG TAB (ZITHROMAX) PO SCH (13:50)
[2020-10-25] MEDS: diphenhydrAMINE 25 MG TAB (BENADRYL) PO SCH (21:05)
[2020-10-25] MEDS: amLODIPine 10 MG (NORVASC) TAB PO SCH (21:05)
[2020-10-25] MEDS: SIMvastatin 10 MG (ZOCOR) TAB PO SCH (21:05)
[2020-10-26] MEDS: RT-ALBUTEROL INHALER HFA (VENTOLIN HFA) 18 GM IH SCH ×6 (03:39→22:14)
[2020-10-26 04:05] VITALS: BP 138/66
[2020-10-26] MEDS: inSUlin ASPART (NovoLOG) 1 UNIT/0.01 ML (CHARGE PER UNIT) SC SCH ×4 (06:51→21:06)
[2020-10-26] MEDS: MULTIVIT W/MINERALS TAB (THERAGRAN M) PO SCH (06:51)
[2020-10-26] MEDS: ADVAIR HFA 115/21 MCG INHALER 8 GM IH SCH ×2 (07:54→19:08)
[2020-10-26 08:00] VITALS: BP 150/69
[2020-10-26] MEDS: VITAMIN D3 25 MCG (1,000 UNITS) TABLET PO SCH ×2 (09:57→18:23)
[2020-10-26] MEDS: CARVEDILOL 12.5 MG (COREG) TABLET PO SCH ×2 (09:57→21:06)
[2020-10-26] MEDS: CALCIUM CARBONATE 500 MG (TUMS) TAB.CHEW PO SCH ×2 (09:57→21:06)
[2020-10-26] MEDS: CLOPIDOGREL 75 MG (PLAVIX) TABLET PO SCH (09:57)
[2020-10-26] MEDS: FUROSEMIDE 40 MG (LASIX) TAB PO SCH (09:57)
[2020-10-26] MEDS: DAKIN'S 1/4 STRENGTH (0.125%) 473 ML BTL TOP SCH ×2 (09:58→21:07)
--- NOTE | 2020-10-26 10:44 | Progress Note ---
Subjective HPI/CC On Admission Date Seen by Provider: Oct 26, 2020 Time Seen by Provider: 09:00 Pt is a 54yoCF with a PMH of IDDMII, HTN, CKD who presented to the ER due to hypoxia. She states over the past couple of days she has had chills, low grade temperatures, and some SOB and was around a family member with "bronchitis." She presented to wound care today for hyperbaric treatment and was found to be hypoxic in the 80s. She noticed she as more short of breath when she laid back in the machine. She denies any known COVID exposure andstates she doesn't go anywhere but the hospital for her treatments. She was found to have a right basilar infiltrate. She reports no previous history of oxygen use. Subjective/Events-last exam Patient has no complaints. She feels like breathing is improving. Afebrile overnight. Did have some shortness of breath overnight but improving overall from admission. Objective Exam Vital Signs Vital Signs Date Time Temp Pulse Resp B/P (MAP) Pulse Ox O2 Delivery O2 Flow Rate FiO2 10/26/20 10:22 78 23 97 35.00 10/26/20 08:00 36.0 150/69 (96) NIV Bilevel 10/23/20 14:20 28 Capillary Refill : Less Than 3 Seconds General Appearance: No Apparent Distress, WD/WN, Chronically ill Respiratory: Accessory Muscle Use (distant breath sounds; some retracting with inspiration) Cardiovascular: Regular Rate, Rhythm, No Edema Extremity: No Pedal Edema (left foot in dressing due to wound; right foot with partial foot amputation distally; no edema) Neurologic/Psychiatric: Alert, Oriented x3, No Motor/Sensory Deficits Skin: Normal Color, Warm/Dry Results/Procedures Lab Patient resulted labs reviewed. Imaging: Reviewed Imaging Report Assessment/Plan Assessment and Plan Assess & Plan/Chief Complaint CAP Hypoxia Elevated d-dimer Stable on 4 liters with BIPAP prn Continue on Rocephin and Azithro Rapid COVID negative, PCR negative x2 V/Q scan negative Repeat procal COVID ab negative Pulm consulted, appreciate assistance BIPAP prn CBCd pending. IDDMII Chronic diabetic foot wound Hypoglycemia of 50's this morning, will titrate down nocturnal dosing to 70. Dr Aldana consulted, appreciate recs- defer management to him Right leg slightly erythematous but patient states this is baseline HTN Stable on home medications. CKD Around her baseline, trend DVT ppx: Lovenox as above Diagnosis/Problems Diagnosis/Problems (1) Wound of right foot (2) Hypoxia Status: Acute (3) Right lower lobe pneumonia Status: Acute Qualifiers: Qualified Codes: J18.9 - Pneumonia, unspecified organism (4) Elevated d-dimer Status: Acute (5) CKD (chronic kidney disease) stage 4, GFR 15-29 ml/min Status: Chronic Clinical Quality Measures DVT/VTE Risk/Contraindication: Risk Factor Score Per Nursin RFS Level Per Nursing on Admit: 4+=Very High HAIM CAMARENA MD Oct 26, 2020 10:44
[2020-10-26 12:00] VITALS: BP 162/70
[2020-10-26 12:05] LABS: BASOPHILS # (AUTO) 0.1 10^3/uL (0.0-0.1); BASOPHILS % (AUTO) 1 % (0-10); EOSINOPHILS # (AUTO) 0.1 10^3/uL (0.0-0.3); EOSINOPHILS % (AUTO) 1 % (0-10); HEMATOCRIT 29 % (35-52); LYMPHOCYTES # (AUTO) 0.7 10^3/uL (1.0-4.0); LYMPHOCYTES % (AUTO) 10 % (12-44); MEAN CORPUSCULAR HEMOGLOBIN 29 pg (25-34); MEAN CORPUSCULAR HGB CONC 31 g/dL (32-36); MEAN CORPUSCULAR VOLUME 93 fL (80-99); MEAN PLATELET VOLUME 11.5 fL (9.0-12.2); MONOCYTES # (AUTO) 0.5 10^3/uL (0.0-1.0); MONOCYTES % (AUTO) 7 % (0-12); NEUTROPHILS # (AUTO) 5.8 10^3/uL (1.8-7.8); NEUTROPHILS % (AUTO) 81 % (42-75); PLATELET COUNT 182 10^3/uL (130-400); WHITE BLOOD COUNT 7.1 10^3/uL (4.3-11.0)
[2020-10-26 12:29] LABS: POTASSIUM 4.7 MMOL/L (3.6-5.0)
[2020-10-26] MEDS: cefTRIAXone FOR IV USE 1,000 MG in WATER (STERILE) FOR INJECTION 10 ML IV SCH (12:29)
[2020-10-26] MEDS: ENOXAPARIN 40 MG/0.4 ML (LOVENOX) SYR SC SCH (12:29)
[2020-10-26 12:30] LABS: CALCIUM 9.3 MG/DL (8.5-10.1)
[2020-10-26 12:35] LABS: CREATININE SERUM 2.94 MG/DL (0.60-1.30)
[2020-10-26] MEDS: AZITHROMYCIN 250 MG TAB (ZITHROMAX) PO SCH (15:09)
[2020-10-26 16:22] VITALS: BP 154/80
[2020-10-26 20:00] VITALS: BP 147/95
[2020-10-26] MEDS: amLODIPine 10 MG (NORVASC) TAB PO SCH (21:06)
[2020-10-26] MEDS: SIMvastatin 10 MG (ZOCOR) TAB PO SCH (21:06)
[2020-10-26] MEDS: diphenhydrAMINE 25 MG TAB (BENADRYL) PO SCH (21:06)
[2020-10-27] VITALS (7 sets, daily range): BP systolic 143–166; BP diastolic 67–88
[2020-10-27] MEDS: RT-ALBUTEROL INHALER HFA (VENTOLIN HFA) 18 GM IH SCH ×6 (01:43→21:37)
[2020-10-27] MEDS: inSUlin ASPART (NovoLOG) 1 UNIT/0.01 ML (CHARGE PER UNIT) SC SCH ×4 (06:09→20:50)
[2020-10-27] MEDS: MULTIVIT W/MINERALS TAB (THERAGRAN M) PO SCH ×2 (06:21→10:04)
[2020-10-27] MEDS: ADVAIR HFA 115/21 MCG INHALER 8 GM IH SCH ×2 (06:44→21:37)
[2020-10-27 06:55] LABS: BASOPHILS % (AUTO) 1 % (0-10); EOSINOPHILS % (AUTO) 1 % (0-10); HEMATOCRIT 27 % (35-52); HEMOGLOBIN 8.2 g/dL (11.5-16.0); LYMPHOCYTES # (AUTO) 0.9 10^3/uL (1.0-4.0); LYMPHOCYTES % (AUTO) 14 % (12-44); MEAN CORPUSCULAR HEMOGLOBIN 29 pg (25-34); MEAN CORPUSCULAR HGB CONC 31 g/dL (32-36); MEAN CORPUSCULAR VOLUME 93 fL (80-99); MONOCYTES # (AUTO) 0.5 10^3/uL (0.0-1.0); MONOCYTES % (AUTO) 7 % (0-12); NEUTROPHILS # (AUTO) 5.2 10^3/uL (1.8-7.8); NEUTROPHILS % (AUTO) 77 % (42-75); PLATELET COUNT 163 10^3/uL (130-400); WHITE BLOOD COUNT 6.6 10^3/uL (4.3-11.0)
[2020-10-27 07:06] LABS: POTASSIUM 4.6 MMOL/L (3.6-5.0)
[2020-10-27 07:07] LABS: CALCIUM 9.3 MG/DL (8.5-10.1)
[2020-10-27 07:11] LABS: CREATININE SERUM 3.13 MG/DL (0.60-1.30)
[2020-10-27] MEDS: CLOPIDOGREL 75 MG (PLAVIX) TABLET PO SCH (10:04)
[2020-10-27] MEDS: CARVEDILOL 12.5 MG (COREG) TABLET PO SCH ×2 (10:04→21:00)
[2020-10-27] MEDS: CALCIUM CARBONATE 500 MG (TUMS) TAB.CHEW PO SCH ×2 (10:04→21:00)
[2020-10-27] MEDS: FUROSEMIDE 40 MG (LASIX) TAB PO SCH (10:04)
[2020-10-27] MEDS: VITAMIN D3 25 MCG (1,000 UNITS) TABLET PO SCH ×2 (10:06→17:03)
[2020-10-27] MEDS: DAKIN'S 1/4 STRENGTH (0.125%) 473 ML BTL TOP SCH ×2 (10:06→21:01)
[2020-10-27] MEDS ORDERED: FUROSEMIDE 40 MG/4 ML INJ (LASIX) IVP ONE (10:30)
--- NOTE | 2020-10-27 10:36 | Progress Note ---
Subjective HPI/CC On Admission Date Seen by Provider: Oct 27, 2020 Time Seen by Provider: 10:31 Pt is a 54yoCF with a PMH of IDDMII, HTN, CKD who presented to the ER due to hypoxia. She states over the past couple of days she has had chills, low grade temperatures, and some SOB and was around a family member with "bronchitis." She presented to wound care today for hyperbaric treatment and was found to be hypoxic in the 80s. She noticed she as more short of breath when she laid back in the machine. She denies any known COVID exposure andstates she doesn't go anywhere but the hospital for her treatments. She was found to have a right basilar infiltrate. She reports no previous history of oxygen use. Subjective/Events-last exam Overnight patient is requiring more oxygen. Up to 5 liters. She has been a febrile. She feels like she is about the same. Doesn't feel too short of breath. No hypoglycemia. Can't eat really well. Objective Exam Vital Signs Vital Signs Date Time Temp Pulse Resp B/P (MAP) Pulse Ox O2 Delivery O2 Flow Rate FiO2 10/27/20 08:00 36.0 77 22 147/67 (93) 92 Nasal Cannula 5.00 10/23/20 14:20 28 Capillary Refill : Less Than 3 Seconds General Appearance: No Apparent Distress, WD/WN Neck: Full Range of Motion Respiratory: Chest Non Tender, Decreased Breath Sounds, Other (distant breath sounds; accesory muscle use on BIPAP) Cardiovascular: Regular Rate, Rhythm, No Edema Back: Normal Inspection Extremity: Normal Capillary Refill Results/Procedures Lab Laboratory Tests 10/26/20 11:50 10/26/20 11:56 10/27/20 06:14 Patient resulted labs reviewed. Imaging: Reviewed Imaging Report Assessment/Plan Assessment and Plan Assess & Plan/Chief Complaint CAP Hypoxia Pleural effusions bilaterally Elevated d-dimer Increased to 5 liters with BIPAP prn Continue on Rocephin and Azithro to cover for pneumonia Rapid COVID negative, PCR negative x2 V/Q scan negative Repeat procal COVID ab negative Pulm consulted, appreciate assistance BIPAP prn Repeat CXR today. I am worried about fluid overload with worsening creatinine. Will try IV lasix to see is that helps hypoxia. IDDMII Chronic diabetic foot wound No hypoglycemia with [address] Aldana consulted, appreciate recs- defer management to him Right leg slightly erythematous but patient states this is baseline HTN Stable on home medications. CKD Creatinine trending up. Will monitor. I am concerned with worsening hypoxia and elevated creatinine. DVT ppx: Lovenox as above Diagnosis/Problems Diagnosis/Problems (1) Hypoxia Status: Acute (2) Acute on chronic renal failure (3) Wound of right foot (4) Right lower lobe pneumonia Status: Acute Qualifiers: Qualified Codes: J18.9 - Pneumonia, unspecified organism (5) Elevated d-dimer Status: Acute (6) CKD (chronic kidney disease) stage 4, GFR 15-29 ml/min Status: Chronic Clinical Quality Measures DVT/VTE Risk/Contraindication: Risk Factor Score Per Nursin RFS Level Per Nursing on Admit: 4+=Very High HAIM CAMARENA MD Oct 27, 2020 10:36
--- NOTE | 2020-10-27 11:16 | Diagnostic Imaging Report ---
INDICATION: Trouble breathing. Time of exam 10:37 a.m. Correlation is made with prior chest 10/23/2020. Heart is enlarged. There is infiltrate and pleural fluid in the right base. There appears to be infiltrate in the left base obscuring the left hemidiaphragm. This has increased since the prior. Upper lung finley are clear. There is no pneumothorax. IMPRESSION: Bilateral infiltrates, increasing when compared with examination from 10/23/2020. Dictated by: Dictated on workstation # [id number]
[2020-10-27] MEDS: cefTRIAXone FOR IV USE 1,000 MG in WATER (STERILE) FOR INJECTION 10 ML IV SCH (12:42)
[2020-10-27] MEDS: ENOXAPARIN 40 MG/0.4 ML (LOVENOX) SYR SC SCH (12:42)
[2020-10-27] MEDS: AZITHROMYCIN 250 MG TAB (ZITHROMAX) PO SCH (14:50)
[2020-10-27] MEDS: amLODIPine 10 MG (NORVASC) TAB PO SCH (21:00)
[2020-10-27] MEDS: SIMvastatin 10 MG (ZOCOR) TAB PO SCH (21:00)
[2020-10-27] MEDS: diphenhydrAMINE 25 MG TAB (BENADRYL) PO SCH (21:00)
[2020-10-28] VITALS (8 sets, daily range): BP systolic 133–146; BP diastolic 67–84
[2020-10-28] MEDS: RT-ALBUTEROL INHALER HFA (VENTOLIN HFA) 18 GM IH SCH ×4 (01:33→20:30)
[2020-10-28] MEDS: inSUlin ASPART (NovoLOG) 1 UNIT/0.01 ML (CHARGE PER UNIT) SC SCH ×4 (05:55→20:25)
[2020-10-28] MEDS: ADVAIR HFA 115/21 MCG INHALER 8 GM IH SCH ×2 (07:05→20:31)
[2020-10-28] MEDS: FUROSEMIDE 40 MG (LASIX) TAB PO SCH (08:47)
[2020-10-28] MEDS: CLOPIDOGREL 75 MG (PLAVIX) TABLET PO SCH (08:47)
[2020-10-28] MEDS: CARVEDILOL 12.5 MG (COREG) TABLET PO SCH ×2 (08:47→20:25)
[2020-10-28] MEDS: CALCIUM CARBONATE 500 MG (TUMS) TAB.CHEW PO SCH ×2 (08:47→20:24)
[2020-10-28] MEDS: DAKIN'S 1/4 STRENGTH (0.125%) 473 ML BTL TOP SCH ×2 (08:55→22:25)
[2020-10-28] MEDS: VITAMIN D3 25 MCG (1,000 UNITS) TABLET PO SCH ×2 (08:56→17:51)
[2020-10-28 09:38] LABS: BASOPHILS # (AUTO) 0.1 10^3/uL (0.0-0.1); BASOPHILS % (AUTO) 1 % (0-10); EOSINOPHILS # (AUTO) 0.1 10^3/uL (0.0-0.3); EOSINOPHILS % (AUTO) 1 % (0-10); HEMATOCRIT 27 % (35-52); HEMOGLOBIN 8.5 g/dL (11.5-16.0); LYMPHOCYTES # (AUTO) 0.5 10^3/uL (1.0-4.0); LYMPHOCYTES % (AUTO) 7 % (12-44); MEAN CORPUSCULAR HEMOGLOBIN 29 pg (25-34); MEAN CORPUSCULAR HGB CONC 31 g/dL (32-36); MEAN CORPUSCULAR VOLUME 94 fL (80-99); MEAN PLATELET VOLUME 11.6 fL (9.0-12.2); MONOCYTES # (AUTO) 0.5 10^3/uL (0.0-1.0); MONOCYTES % (AUTO) 6 % (0-12); NEUTROPHILS # (AUTO) 6.4 10^3/uL (1.8-7.8); NEUTROPHILS % (AUTO) 85 % (42-75); PLATELET COUNT 162 10^3/uL (130-400); WHITE BLOOD COUNT 7.6 10^3/uL (4.3-11.0)
[2020-10-28 09:50] LABS: POTASSIUM 5.3 MMOL/L (3.6-5.0)
[2020-10-28 09:51] LABS: CALCIUM 8.9 MG/DL (8.5-10.1)
[2020-10-28 09:55] LABS: CREATININE SERUM 3.32 MG/DL (0.60-1.30)
[2020-10-28] MEDS: ENOXAPARIN 40 MG/0.4 ML (LOVENOX) SYR SC SCH (12:14)
--- NOTE | 2020-10-28 12:23 | Diagnostic Imaging Report ---
INDICATION: Right thoracentesis COMPARISON: 10/27/2020 TECHNIQUE: Single radiograph chest dated 10/28/2020. FINDINGS: The cardiac silhouette is enlarged, though stable. Small left basilar pleural-parenchymal opacity is again identified, appearing similar to the prior examination. Small right basilar pleural-parenchymal opacity is present, appearing improved since the prior examination status post thoracentesis. No pneumothorax. No acute osseous abnormality. IMPRESSION: Improved small right basilar pleural-parenchymal opacity status post thoracentesis without pneumothorax. Stable left small bibasilar pleural-parenchymal opacity. Overall improved aeration of the lungs. Persistent cardiomegaly. Dictated by: Dictated on workstation # [id number]
--- NOTE | 2020-10-28 14:08 | CONSULTATION REPORT ---
DATE OF SERVICE: ATTENDING PRIMARY CARE PHYSICIAN: Dr. Lenka Pinto. ADMITTING PHYSICIAN: Dr. Willingham. HISTORY OF PRESENT ILLNESS: The patient is a 54-year-old female with a significant past medical history including diabetes, hypertension, chronic kidney disease as well as peripheral vascular disease. She presented with a low-grade temperature as well as chills at home and did also have some shortness of breath. She reports that she has had issue with chronic bronchitis in the past and is a former smoker and quit in 2006. A CT scan was performed as well as x-rays. It does appear she does have a significant size right pleural effusion and a small one on the left side. Coronavirus-19 testing has been negative. PAST MEDICAL HISTORY: Diabetes, hypertension, chronic kidney disease and peripheral vascular disease. 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 ALLERGIES: No known drug allergies. MEDICATIONS: 1. Amlodipine 10 mg daily. 2. Carvedilol 25 mg b.i.d. 3. Plavix 75 mg daily. 4. Dulaglutide 1.5 mg weekly. 5. Furosemide 40 mg daily. 6. Insulin degludec 120 units daily. 7. Regular insulin sliding scale. 8. Loratadine 10 mg daily. 9. Lovastatin 20 mg daily. SOCIAL HISTORY: Previous smoker, quit 2006. Social alcohol. FAMILY HISTORY: Noncontributory. REVIEW OF SYSTEMS: A well-nourished female currently in no acute distress. She does report worsening shortness of breath in the past week especially upon exertion. Chronic cough and no new sputum production. No hemoptysis. No nausea or vomiting, no diarrhea or constipation. Recent chills at home, none since being admitted. No recent inadvertent weight loss. All other review of systems negative. PHYSICAL EXAMINATION: VITAL SIGNS: Temperature 35.9, blood pressure 145/67, pulse 65, respirations 23, and pulse ox 94 on 50% noninvasive bilateral nasal cannula. CHEST: Decreased breath sounds bilaterally, worse on the right side. HEART: Regular and no murmurs. EXTREMITIES: She has signs of chronic peripheral vascular disease with a Syme's amputation of the left foot and multiple toe amputations on the right foot. HEENT: No scleral icterus. NECK: No cervical lymphadenopathy. ABDOMEN: Soft, nontender and nondistended. SKIN: Warm and dry. LABORATORY DATA: WBC 7.6, hemoglobin 8.5, hematocrit 27, platelets 162, potassium 5.3, BUN 75 and creatinine 3.32. ASSESSMENT AND PLAN: A 54-year-old female with COPD as well as symptomatic bilateral pleural effusion with the right side significant in size and amenable to thoracentesis. The left side appears to be small and we will continue to monitor that side. Job ID: [id number] DocumentID: [id number] Dictated Date: 10/28/2020 12:07:11 Family Educator Date: 10/28/2020 14:07:45 Dictated By: NATALIA NOVOA MD
[2020-10-28] MEDS ORDERED: NON-FORMULARY MEDICATION 1 EA EA (Dulaglutide (Trulicity) 1.5 MG) SQ SCH (17:15)
--- NOTE | 2020-10-28 17:17 | Progress Note ---
Subjective HPI/CC On Admission Date Seen by Provider: Oct 28, 2020 Time Seen by Provider: 11:00 Pt is a 54yoCF with a PMH of IDDMII, HTN, CKD who presented to the ER due to hypoxia. She states over the past couple of days she has had chills, low grade temperatures, and some SOB and was around a family member with "bronchitis." She presented to wound care today for hyperbaric treatment and was found to be hypoxic in the 80s. She noticed she as more short of breath when she laid back in the machine. She denies any known COVID exposure andstates she doesn't go anywhere but the hospital for her treatments. She was found to have a right basilar infiltrate. She reports no previous history of oxygen use. Subjective/Events-last exam Overnight oxygenation worsening. Requiring bipap more than nasal cannula. Patient doesn't feel more short of breath. Good UOP after IV lasix yesterday. Objective Exam Vital Signs Vital Signs Date Time Temp Pulse Resp B/P (MAP) Pulse Ox O2 Delivery O2 Flow Rate FiO2 10/28/20 16:00 35.8 105 20 140/84 (102) 96 NIV Bilevel 50.00 10/28/20 09:23 50 Capillary Refill : Less Than 3 SecondsLess Than 3 Seconds General Appearance: No Apparent Distress, WD/WN (on bipap) Neck: Full Range of Motion Respiratory: Chest Non Tender (some accessory muscle use; distant breath sounds) Cardiovascular: Regular Rate, Rhythm, No Edema Gastrointestinal: Normal Bowel Sounds Back: Normal Inspection Extremity: Normal Capillary Refill Neurologic/Psychiatric: Alert, Oriented x3, No Motor/Sensory Deficits Skin: Normal Color, Warm/Dry Results/Procedures Lab Laboratory Tests 10/28/20 09:30 Patient resulted labs reviewed. Imaging: Reviewed Imaging Report Assessment/Plan Assessment and Plan Assess & Plan/Chief Complaint CAP Hypoxia Pleural effusions bilaterally Elevated d-dimer Increased to bipap Continue on Rocephin and Azithro to cover for pneumonia Rapid COVID negative, PCR negative x2 V/Q scan negative Repeat procal COVID ab negative Pulm consulted, appreciate assistance BIPAP prn Repeat CXR today. I am worried about fluid overload with worsening creatinine. Will consult surgery to think about draining pleural effusions. IDDMII Chronic diabetic foot wound Fasting glucose in 60's. Will decrease to [address] Aldana consulted, appreciate recs- defer management to him Right leg slightly erythematous but patient states this is baseline HTN Stable on home medications. CKD Creatinine trending up. Will monitor. I am concerned with worsening hypoxia and elevated creatinine. DVT ppx: Lovenox as above Diagnosis/Problems Diagnosis/Problems (1) Hypoxia Status: Acute (2) Acute on chronic renal failure (3) Wound of right foot (4) Right lower lobe pneumonia Status: Acute Qualifiers: Qualified Codes: J18.9 - Pneumonia, unspecified organism (5) Elevated d-dimer Status: Acute (6) CKD (chronic kidney disease) stage 4, GFR 15-29 ml/min Status: Chronic Clinical Quality Measures DVT/VTE Risk/Contraindication: Risk Factor Score Per Nursin RFS Level Per Nursing on Admit: 4+=Very High HAIM CAMARENA MD Oct 28, 2020 17:17
--- NOTE | 2020-10-28 17:51 | Wound Care Assessment ---
Wound Care Assessment Date Seen by Provider: Oct 28, 2020 Time Seen by Provider: 17:30 Chief Complaint R foot wound. HPI The patient is a 54 year old female with a Riley Grade 3 diabetic ulcer of the plantar aspect of the right foot. Prior to scheduled HBOT at [facility] she complained of shortness of breath, was noted to be hypoxic, and sent to ER for evaluation. The R foot wound is stable. Dressings are changed to 1/4 strength Dakin's BID while in hospital. Interval Note: 10/28/20 Patient interviewed. No complaints referable to R foot. Dakin's BID dressings. Wound base clean beefy granulation by report. No erythema of R calf. Continue same dressings. Pleural effusion tapped with some improvement in breathing. Worsening renal failure with GFR down to 15. Echocardiogram pending. No change in wound dressing. Past Medical History: Admits Diabetes Type II Stage 4 CRF. Recreational Drug Use: No Alcohol Use: Denies Use Review of Systems Pulmonary: Dyspnea Cardiovascular: No: Chest Pain Exam Vital Signs Date Time Temp Pulse Resp B/P (MAP) Pulse Ox O2 Delivery O2 Flow Rate FiO2 10/28/20 16:00 35.8 105 20 140/84 (102) 96 NIV Bilevel 50.00 10/28/20 09:23 50 Capillary Refill : Less Than 3 SecondsLess Than 3 Seconds General Appearance: mild distress Extremities: other (R foot dressing dry and intact.) Results Laboratory Tests 10/27/20 20:17: Glucometer 116H 10/28/20 05:49: Glucometer 68L 10/28/20 08:52: Glucometer 113H 10/28/20 09:30: White Blood Count 7.6, Red Blood Count 2.93L, Hemoglobin 8.5L, Hematocrit 27L, Mean Corpuscular Volume 94, Mean Corpuscular Hemoglobin 29, Mean Corpuscular Hemoglobin Concent 31L, Red Cell Distribution Width 14.3, Platelet Count 162, Mean Platelet Volume 11.6, Immature Granulocyte % (Auto) 0, Neutrophils (%) (Auto) 85H, Lymphocytes (%) (Auto) 7L, Monocytes (%) (Auto) 6, Eosinophils (%) (Auto) 1, Basophils (%) (Auto) 1, Neutrophils # (Auto) 6.4, Lymphocytes # (Auto) 0.5L, Monocytes # (Auto) 0.5, Eosinophils # (Auto) 0.1, Basophils # (Auto) 0.1, Immature Granulocyte # (Auto) 0.0, Sodium Level 136, Potassium Level 5.3H, Chloride Level 101, Carbon Dioxide Level 25, Anion Gap 10, Blood Urea Nitrogen 75H, Creatinine 3.32H, Estimat Glomerular Filtration Rate 15, BUN/Creatinine Ratio 23, Glucose Level 147H, Calcium Level 8.9 10/28/20 11:27: Glucometer 148H 10/28/20 15:34: Glucometer 215H Microbiology 10/23/20 Urine Culture - Final, Complete >=3 Gram Positive Isolates Group B Streptococci 10/23/20 Blood Culture - Preliminary, Resulted No growth 10/23/20 Influenza Types A,B Antigen (SULEIMAN) - Final, Complete Assessment/Plan/Dx 1. R foot ulcer, Riley Grade 3, stable. 2. Pneumonia, COVID-19 negative x 3. 3. Progression of CRF. Plan: Dakin's dressings to R foot wound BID. EUFEMIA JOSEPH MD Oct 28, 2020 17:51
--- NOTE | 2020-10-28 18:09 | OPERATIVE REPORT ---
DATE OF SERVICE: 10/28/2020 ATTENDING PRIMARY CARE PHYSICIAN: Dr. Lenka Pinto. ADMITTING PHYSICIAN: Dr. Willingham. PREPROCEDURE DIAGNOSIS: Symptomatic right pleural effusion. POSTPROCEDURE DIAGNOSIS: Symptomatic right pleural effusion. PROCEDURE: Right thoracentesis. SURGEON: Natalia Rueda MD. TEACHER OF THE VISUALLY IMPAIRED: Sergio Dhaliwal APRN. ANESTHESIA: Local. ESTIMATED BLOOD LOSS: Minimal. FINDINGS: Straw yellow transudative fluid. DISPOSITION: The patient tolerated the procedure well. INDICATIONS: The patient is a 54-year-old female, who presented with worsening shortness of breath as well as fatigue. She also does have a history of COPD and a chronic cough, which did worsen as well. She also had reported some mild chills at home. Since being admitted, she has not had any fever or chills and has been coronavirus-[address] scan admission as well as a chest x-ray did show a bilateral pleural effusion with the right side significant in size. We will proceed with a right thoracentesis. DESCRIPTION OF PROCEDURE: The patient sat upright and proceeded in flexion position. The back was then prepped and draped in standard surgical fashion. At approximately the eighth intercostal space of the posterolateral back to the skin, subcutaneous tissue, muscle layers and parietal pleura were anesthetized using 1% lidocaine. A skin incision was made using 11 blade and the trocar and catheter were then introduced withdrawing of straw yellow transudative fluid. The catheter was then advanced over the trocar and connected to vacuum suction bottles were 1300 mL of straw yellow transudative fluid removed. The catheter then was removed while holding direct pressure and an Op-Site applied. The patient tolerated the procedure well. We will get a post-procedure chest x-ray. Job ID: [id number] DocumentID: [id number] Dictated Date: 10/28/2020 12:10:17 Welding Machine Feeder Date: 10/28/2020 18:09:11 Dictated By: NATALIA RUEDA MD
[2020-10-28] MEDS ORDERED: NS IV 1000 ML 1,000 ML IV SCH (18:15)
[2020-10-28] MEDS ORDERED: NS IV 1000 ML 1,000 ML ONE (18:25)
[2020-10-28] MEDS: diphenhydrAMINE 25 MG TAB (BENADRYL) PO SCH (20:24)
[2020-10-28] MEDS: SIMvastatin 10 MG (ZOCOR) TAB PO SCH (20:24)
[2020-10-28] MEDS: amLODIPine 10 MG (NORVASC) TAB PO SCH (20:25)
[2020-10-28] MEDS: MICONAZOLE 2% POWDER (DESENEX AF) 90 GM TOP SCH (22:25)
[2020-10-29] VITALS (8 sets, daily range): BP systolic 116–182; BP diastolic 66–124
[2020-10-29] MEDS: RT-ALBUTEROL INHALER HFA (VENTOLIN HFA) 18 GM IH SCH ×6 (02:50→22:12)
[2020-10-29 06:39] LABS: BASOPHILS % (AUTO) 1 % (0-10); EOSINOPHILS # (AUTO) 0.1 10^3/uL (0.0-0.3); EOSINOPHILS % (AUTO) 1 % (0-10); HEMATOCRIT 26 % (35-52); HEMOGLOBIN 8.1 g/dL (11.5-16.0); LYMPHOCYTES # (AUTO) 0.7 10^3/uL (1.0-4.0); LYMPHOCYTES % (AUTO) 9 % (12-44); MEAN CORPUSCULAR HEMOGLOBIN 29 pg (25-34); MEAN CORPUSCULAR HGB CONC 31 g/dL (32-36); MEAN CORPUSCULAR VOLUME 93 fL (80-99); MEAN PLATELET VOLUME 11.9 fL (9.0-12.2); MONOCYTES # (AUTO) 0.6 10^3/uL (0.0-1.0); MONOCYTES % (AUTO) 7 % (0-12); NEUTROPHILS # (AUTO) 6.6 10^3/uL (1.8-7.8); NEUTROPHILS % (AUTO) 83 % (42-75); PLATELET COUNT 173 10^3/uL (130-400)
[2020-10-29] MEDS: inSUlin ASPART (NovoLOG) 1 UNIT/0.01 ML (CHARGE PER UNIT) SC SCH ×4 (06:46→21:09)
[2020-10-29 06:47] LABS: CALCIUM 8.7 MG/DL (8.5-10.1)
[2020-10-29] MEDS: MULTIVIT W/MINERALS TAB (THERAGRAN M) PO SCH (06:47)
[2020-10-29 06:52] LABS: CREATININE SERUM 3.52 MG/DL (0.60-1.30)
--- NOTE | 2020-10-29 06:54 | Pulmonary Progress Note ---
Subjective Time Seen by a Provider: 06:48 Subjective/Events-last exam Pt is currently on BiPAP Sepsis Event Evaluation Height, Weight, BMI Height: '" Weight: lbs. oz. kg; 48.67 BMI Method: Exam Exam Vital Signs Date Time Temp Pulse Resp B/P (MAP) Pulse Ox O2 Delivery O2 Flow Rate FiO2 10/29/20 03:59 36.4 76 22 119/66 (83) 92 NIV Bilevel 10/29/20 02:50 74 26 95 50.00 10/29/20 01:00 77 10/28/20 23:49 36.3 82 22 133/78 (96) 96 NIV Bilevel 50.00 10/28/20 20:31 74 26 95 50.00 10/28/20 20:30 96 NIV Bilevel 50 10/28/20 19:54 36.2 94 20 143/83 (103) 99 NIV Bilevel 50.00 10/28/20 19:00 93 10/28/20 18:14 91 High Flow N/C 8.00 10/28/20 16:00 35.8 105 20 140/84 (102) 96 NIV Bilevel 50.00 10/28/20 15:37 62 26 94 50.00 10/28/20 13:49 95 NIV Bilevel 50.00 10/28/20 12:55 83 10/28/20 12:00 35.3 79 30 146/83 (104) 95 Nasal Cannula 5.00 10/28/20 09:23 65 94 50 10/28/20 09:21 65 23 94 50.00 10/28/20 09:02 80 145/67 (93) 94 NIV Bilevel 50.00 10/28/20 08:59 NIV Bilevel 50 10/28/20 08:28 35.9 79 18 145/78 (100) 92 Nasal Cannula 5.00 10/28/20 07:00 80 I & O 10/29/20 07:00 Intake Total 1130 ml Output Total 1700 ml Balance -570 ml Height & Weight Height: '" Weight: lbs. oz. kg; 48.67 BMI Method: General Appearance: WD/WN (on bipap), Mild Distress HEENT: PERRL/EOMI, Moist Mucous Membranes; No Scleral Icterus (L), No Scleral Icterus (R) Neck: Full Range of Motion Respiratory: Chest Non Tender (some accessory muscle use; distant breath sounds) Cardiovascular: Regular Rate, Rhythm, No Edema Capillary Refill: Less Than 3 Seconds Extremity: Normal Capillary Refill Neurologic/Psychiatric: Alert, Oriented x3, No Motor/Sensory Deficits Skin: Normal Color, Warm/Dry Results Lab Laboratory Tests 10/28/20 09:30 10/29/20 05:40 Assessment/Plan Assessment/Plan CAP with hypoxia -Currently on BiPAP -Check ABG -COVID negative -s/p Rocephin and Azithro procal BIPAP prn Acute on chronic renal failure with hyperkalemia -Consider transfer for neprology. -Defer to admitting physician -Check Phos -Hold Lasix Pulmonary edema with bilateral R>.Lpleural effusion -S/p thoracentesis -Lasix -Check Echo --shows diastolic CHF Elevated d-dimer -V/Q scan negative IDDMII Chronic diabetic foot wound HTN CKD DVT ppx: Lovenox as above GHANSHYAM HICKS DO Oct 29, 2020 06:54
[2020-10-29 07:12] LABS: PHOSPHORUS 5.6 MG/DL (2.3-4.7)
[2020-10-29] MEDS: ADVAIR HFA 115/21 MCG INHALER 8 GM IH SCH ×2 (07:13→18:05)
[2020-10-29 07:14] LABS: MAGNESIUM 2.9 MG/DL (1.6-2.4)
[2020-10-29 08:17] LABS: ABG BASE EXCESS -1.2 MMOL/L (-2.5-2.5); ABG OXYGEN SATURATION 93 % (94-100); ABG PCO2 50 MMHG (35-45); ABG PO2 64 MMHG (79-93); ABG TCO2 26.1 MMOL/L (21.0-31.0)
[2020-10-29 08:18] LABS: ALLENS TEST YES-POS; INSPIRED O2 50%; PATIENT TEMP 35.9; VENTILATOR NO
[2020-10-29 08:20] LABS: ABG PH 7.31 (7.37-7.43)
[2020-10-29] MEDS: CARVEDILOL 12.5 MG (COREG) TABLET PO SCH ×2 (09:50→21:10)
[2020-10-29] MEDS: CALCIUM CARBONATE 500 MG (TUMS) TAB.CHEW PO SCH ×2 (09:50→21:10)
[2020-10-29] MEDS: CLOPIDOGREL 75 MG (PLAVIX) TABLET PO SCH (09:50)
[2020-10-29] MEDS: MICONAZOLE 2% POWDER (DESENEX AF) 90 GM TOP SCH ×2 (09:51→21:11)
[2020-10-29] MEDS: VITAMIN D3 25 MCG (1,000 UNITS) TABLET PO SCH ×2 (10:00→18:45)
[2020-10-29] MEDS: DAKIN'S 1/4 STRENGTH (0.125%) 473 ML BTL TOP SCH ×2 (10:32→21:11)
[2020-10-29] MEDS ORDERED: FUROSEMIDE 40 MG/4 ML INJ (LASIX) IVP NR (12:15)
--- NOTE | 2020-10-29 13:35 | Progress Note - Hospitalist ---
Subjective HPI/CC On Admission Date Seen by Provider: Oct 29, 2020 Time Seen by Provider: 09:25 Pt is a 54yoCF with a PMH of IDDMII, HTN, CKD who presented to the ER due to hypoxia. She states over the past couple of days she has had chills, low grade temperatures, and some SOB and was around a family member with "bronchitis." She presented to wound care today for hyperbaric treatment and was found to be hypoxic in the 80s. She noticed she as more short of breath when she laid back in the machine. She denies any known COVID exposure andstates she doesn't go anywhere but the hospital for her treatments. She was found to have a right basilar infiltrate. She reports no previous history of oxygen use. Subjective/Events-last exam She is wearing her BiPAP. She reports that her oxygen saturations were dropping when she did try to take it off. She denies any pain. She denies fevers or chills. She denies nausea and vomiting. She has no other complaints or concerns. Objective Exam Vital Signs Vital Signs Date Time Temp Pulse Resp B/P (MAP) Pulse Ox O2 Delivery O2 Flow Rate FiO2 10/29/20 12:00 75 24 116/74 (88) 94 NIV Bilevel 50.00 10/29/20 10:20 35.0 10/29/20 08:00 93 Capillary Refill : Greater Than 3 SecondsLess Than 3 Seconds General Appearance: No Apparent Distress, Obese HEENT: Other (wearing BiPAP) Respiratory: No Respiratory Distress, Decreased Breath Sounds, Other (wearing BiPAP) Cardiovascular: Regular Rate, Rhythm, No Murmur Gastrointestinal: Normal Bowel Sounds, Non Tender, Soft Extremity: Pedal Edema, Swelling, Other (multiple toe/foot amputations present) Neurologic/Psychiatric: Alert, No Motor/Sensory Deficits, Normal Mood/Affect Skin: Normal Color, Warm/Dry Results/Procedures Lab Laboratory Tests 10/29/20 05:40 Patient resulted labs reviewed. Imaging: Reviewed Imaging Report Assessment/Plan Assessment and Plan Assess & Plan/Chief Complaint Acute kidney injury superimposed on chronic kidney disease Hyperphosphatemia Hyperkalemia BUN/Cr 82/3.52, trending up Bicarb 22, K 5, Phos 5.6 Give Lasix and assess response Monitor I/O closely Begin Phoslo Transfer to ICU May require transfer for nephrology/hemodialysis Acute respiratory failure with hypoxia Pneumonia BiPAP Rocephin and Azithromycin Acute on chronic HFpEF Lasix T2DM with hypoglycemia Decrease Levemir SSI Morbid obesity Clinically significant, no acute management needs DVT Prophylaxis: Lovenox Diagnosis/Problems Diagnosis/Problems (1) Acute kidney injury superimposed on chronic kidney disease Status: Acute (2) PNA (pneumonia) Status: Acute (3) Acute respiratory failure with hypoxia Status: Acute (4) (HFpEF) heart failure with preserved ejection fraction Status: Acute Qualifiers: Heart failure chronicity: acute Qualified Codes: I50.31 - Acute diastolic (congestive) heart failure (5) T2DM (type 2 diabetes mellitus) Status: Acute Qualifiers: Diabetes mellitus mcc insulin use: with long wall shear operator use Diabetes mellitus complication status: with hypoglycemia Diabetes mellitus complication detail: without coma Qualified Codes: E11.649 - Type 2 diabetes mellitus with hypoglycemia without coma; Z79.4 - care home (current) use of insulin (6) Morbid obesity with BMI of 45.0-49.9, adult Status: Chronic Clinical Quality Measures DVT/VTE Risk/Contraindication: Risk Factor Score Per Nursin RFS Level Per Nursing on Admit: 4+=Very High MARYJANE DODSON MD Oct 29, 2020 13:34
[2020-10-29] MEDS: ENOXAPARIN 40 MG/0.4 ML (LOVENOX) SYR SC SCH (14:16)
[2020-10-29] MEDS: CALCIUM ACETATE 667 MG CAP (PHOSLO) PO SCH ×2 (14:16→18:45)
--- NOTE | 2020-10-29 16:09 | Progress Note ---
Subjective Date Seen by a Provider: Oct 29, 2020 Time Seen by a Provider: 15:00 Subjective/Events-last exam on bipap at 50%. cxr did show improvement of aeration right lung. Objective Exam Vital Signs Date Time Temp Pulse Resp B/P (MAP) Pulse Ox O2 Delivery O2 Flow Rate FiO2 10/29/20 14:45 77 25 95 40.00 10/29/20 12:24 77 10/29/20 12:00 75 24 116/74 (88) 94 NIV Bilevel 50.00 10/29/20 10:20 35.0 83 92 10/29/20 10:17 83 25 92 50.00 10/29/20 10:00 80 146/85 (105) NIV Bilevel 50.00 10/29/20 08:00 NIV Bilevel 50.00 93 10/29/20 08:00 35.0 77 24 134/69 (90) 93 NIV Bilevel 50.00 10/29/20 07:13 77 22 93 40.00 10/29/20 06:34 73 10/29/20 03:59 36.4 76 22 119/66 (83) 92 NIV Bilevel 10/29/20 02:50 74 26 95 50.00 10/29/20 01:00 77 10/28/20 23:49 36.3 82 22 133/78 (96) 96 NIV Bilevel 50.00 10/28/20 20:31 74 26 95 50.00 10/28/20 20:30 96 NIV Bilevel 50 10/28/20 19:54 36.2 94 20 143/83 (103) 99 NIV Bilevel 50.00 10/28/20 19:00 93 10/28/20 18:14 91 High Flow N/C 8.00 I & O 10/29/20 07:00 Intake Total 1980 ml Output Total 1900 ml Balance 80 ml Capillary Refill : Greater Than 3 SecondsLess Than 3 Seconds General Appearance: No Apparent Distress HEENT: PERRL/EOMI Neck: Full Range of Motion Respiratory: Chest Non Tender, Decreased Breath Sounds, Rhonci Cardiovascular: Regular Rate, Rhythm Gastrointestinal: normal bowel sounds, non tender, soft Extremity: Normal Capillary Refill Neurologic/Psychiatric: Alert Skin: Normal Color Lymphatic: No Adenopathy Results Lab Laboratory Tests 10/28/20 20:06: Glucometer 155H 10/29/20 05:40: White Blood Count 8.0, Red Blood Count 2.79L, Hemoglobin 8.1L, Hematocrit 26L, Mean Corpuscular Volume 93, Mean Corpuscular Hemoglobin 29, Mean Corpuscular Hemoglobin Concent 31L, Red Cell Distribution Width 14.3, Platelet Count 173, Mean Platelet Volume 11.9, Immature Granulocyte % (Auto) 0, Neutrophils (%) (Auto) 83H, Lymphocytes (%) (Auto) 9L, Monocytes (%) (Auto) 7, Eosinophils (%) (Auto) 1, Basophils (%) (Auto) 1, Neutrophils # (Auto) 6.6, Lymphocytes # (Auto) 0.7L, Monocytes # (Auto) 0.6, Eosinophils # (Auto) 0.1, Basophils # (Auto) 0.0, Immature Granulocyte # (Auto) 0.0, Sodium Level 136, Potassium Level 5.0, Chloride Level 103, Carbon Dioxide Level 22, Anion Gap 11, Blood Urea Nitrogen 82H, Creatinine 3.52H, Estimat Glomerular Filtration Rate 14, BUN/Creatinine Ratio 23, Glucose Level 73, Calcium Level 8.7, Phosphorus Level 5.6H, Magnesium Level 2.9H 10/29/20 06:43: Glucometer 73 10/29/20 08:10: Blood Gas Puncture Site LR, Blood Gas Patient Temperature 35.9, Arterial Blood pH 7.31*L, Arterial Blood Partial Pressure CO2 50H, Arterial Blood Partial Pressure O2 64L, Arterial Blood HCO3 25, Arterial Blood Total CO2 26.1, Arterial Blood Oxygen Saturation 93L, Arterial Blood Base Excess -1.2, Christian Test YES- POS, Blood Gas Ventilator Setting NO, Blood Gas Inspired Oxygen 50% 10/29/20 11:12: Glucometer 69L 10/29/20 15:57: Glucometer 138H Microbiology 10/23/20 Urine Culture - Final, Complete >=3 Gram Positive Isolates Group B Streptococci 10/23/20 Blood Culture - Final, Complete No growth 10/23/20 Influenza Types A,B Antigen (SULEIMAN) - Final, Complete Assessment/Plan Assessment/Plan Assess & Plan/Chief Complaint respiratory and renal failure. on bipap now. worsening renal failure and may need HD. Clinical Quality Measures DVT/VTE Risk/Contraindication: Risk Factor Score Per Nursin RFS Level Per Nursing on Admit: 4+=Very High NATALIA NOVOA MD Oct 29, 2020 16:09
[2020-10-29] MEDS: amLODIPine 10 MG (NORVASC) TAB PO SCH (21:10)
[2020-10-29] MEDS: diphenhydrAMINE 25 MG TAB (BENADRYL) PO SCH (21:10)
[2020-10-29] MEDS: SIMvastatin 10 MG (ZOCOR) TAB PO SCH (21:11)
[2020-10-30] VITALS (23 sets, daily range): BP systolic 106–159; BP diastolic 50–78
[2020-10-30] MEDS: RT-ALBUTEROL INHALER HFA (VENTOLIN HFA) 18 GM IH SCH ×6 (01:47→21:38)
--- NOTE | 2020-10-30 03:44 | Pulmonary Progress Note ---
HADLEY ABRAHAM,MED STUDENT 10/30/20 0344: Subjective Date Seen by a Provider: Oct 30, 2020 Time Seen by a Provider: 03:43 Subjective/Events-last exam Pt is currently on BiPAP Sepsis Event Evaluation Height, Weight, BMI Height: '" Weight: lbs. oz. kg; 48.67 BMI Method: Exam Exam Vital Signs Date Time Temp Pulse Resp B/P (MAP) Pulse Ox O2 Delivery O2 Flow Rate FiO2 10/30/20 01:47 73 25 94 40.00 10/30/20 01:00 73 10/30/20 00:00 75 17 123/57 (64) 90 NIV Bilevel 50.00 10/29/20 22:12 80 25 92 40.00 10/29/20 22:00 77 16 148/73 (104) 92 NIV Bilevel 50.00 10/29/20 21:36 NIV Bilevel 50.00 93 10/29/20 20:00 81 19 163/85 (111) 94 NIV Bilevel 50.00 10/29/20 19:00 82 10/29/20 18:05 80 25 94 40.00 10/29/20 16:00 75 11 182/124 (143) 94 NIV Bilevel 50.00 10/29/20 16:00 35.8 10/29/20 14:45 77 25 95 40.00 10/29/20 12:24 77 10/29/20 12:00 75 24 116/74 (88) 94 NIV Bilevel 50.00 10/29/20 10:20 35.0 83 92 10/29/20 10:17 83 25 92 50.00 10/29/20 10:00 80 146/85 (105) NIV Bilevel 50.00 10/29/20 08:00 NIV Bilevel 50.00 93 10/29/20 08:00 35.0 77 24 134/69 (90) 93 NIV Bilevel 50.00 10/29/20 07:13 77 22 93 40.00 10/29/20 06:34 73 10/29/20 03:59 36.4 76 22 119/66 (83) 92 NIV Bilevel I & O 10/30/20 07:00 Intake Total 200 ml Balance 200 ml Height & Weight Height: '" Weight: lbs. oz. kg; 48.67 BMI Method: General Appearance: No Apparent Distress, Mild Distress HEENT: PERRL/EOMI Neck: Full Range of Motion Respiratory: Decreased Breath Sounds Cardiovascular: Regular Rate, Rhythm Capillary Refill: Less Than 3 Seconds Gastrointestinal: normal bowel sounds, non tender, soft Extremity: Normal Capillary Refill Neurologic/Psychiatric: Alert Skin: Normal Color Lymphatic: No Adenopathy Results Lab Laboratory Tests 10/28/20 09:30 10/29/20 05:40 Assessment/Plan Assessment/Plan CAP with hypoxia -Currently on BiPAP -COVID negative -s/p Rocephin and Azithro procal 0.22 -BIPAP prn Acute on chronic renal failure with hyperkalemia -Consider transfer for neprology. -Defer to admitting physician -Phos 5.6 -Hold Lasix Pulmonary edema with bilateral R>.Lpleural effusion -S/p thoracentesis -Lasix -Check Echo --shows diastolic CHF Elevated d-dimer -V/Q scan negative IDDMII Chronic diabetic foot wound HTN CKD DVT ppx: Lovenox as above GHANSHYAM HICKS DO 10/30/20 0516: Subjective Time Seen by a Provider: 05:13 Assessment/Plan Assessment/Plan CAP with hypoxia -Currently on BiPAP -Labs pending -ABG pending -CXR pending -COVID negative -s/p Rocephin and Azithro procal 0.22 -BIPAP prn Acute on chronic renal failure with hyperkalemia - transfer for neprology when bed is available. -Dr. Young attempted to transfer pt yesterday however was unable secondary to no ICU beds available. -Labs pending Pulmonary edema with bilateral R>.Lpleural effusion -S/p thoracentesis -Lasix -Check Echo --shows diastolic CHF Elevated d-dimer -V/Q scan negative IDDMII Chronic diabetic foot wound HTN CKD DVT ppx: Lovenox as above HADLEY ABRAHAM,MED STUDENT Oct 30, 2020 03:44 GHANSHYAM HICKS DO Oct 30, 2020 05:16
[2020-10-30] MEDS: ADVAIR HFA 115/21 MCG INHALER 8 GM IH SCH ×2 (05:56→18:11)
[2020-10-30 06:26] LABS: BASOPHILS % (AUTO) 1 % (0-10); EOSINOPHILS # (AUTO) 0.1 10^3/uL (0.0-0.3); EOSINOPHILS % (AUTO) 1 % (0-10); HEMATOCRIT 27 % (35-52); HEMOGLOBIN 8.2 g/dL (11.5-16.0); LYMPHOCYTES # (AUTO) 0.6 10^3/uL (1.0-4.0); LYMPHOCYTES % (AUTO) 9 % (12-44); MEAN CORPUSCULAR HEMOGLOBIN 29 pg (25-34); MEAN CORPUSCULAR HGB CONC 31 g/dL (32-36); MEAN CORPUSCULAR VOLUME 95 fL (80-99); MEAN PLATELET VOLUME 11.4 fL (9.0-12.2); MONOCYTES # (AUTO) 0.4 10^3/uL (0.0-1.0); MONOCYTES % (AUTO) 7 % (0-12); NEUTROPHILS # (AUTO) 4.8 10^3/uL (1.8-7.8); NEUTROPHILS % (AUTO) 82 % (42-75); PLATELET COUNT 143 10^3/uL (130-400); WHITE BLOOD COUNT 5.9 10^3/uL (4.3-11.0)
[2020-10-30 06:37] LABS: ABG BASE EXCESS -0.9 MMOL/L (-2.5-2.5); ABG OXYGEN SATURATION 90 % (94-100); ABG PCO2 52 MMHG (35-45); ABG PO2 62 MMHG (79-93); ABG TCO2 26.7 MMOL/L (21.0-31.0); ALLENS TEST POSITIVE; INSPIRED O2 50; PATIENT TEMP 36.2; VENTILATOR NO
[2020-10-30 06:38] LABS: ABG PH 7.29 (7.37-7.43)
[2020-10-30 06:42] LABS: ALBUMIN 3.1 GM/DL (3.2-4.5); POTASSIUM 5.2 MMOL/L (3.6-5.0)
[2020-10-30 06:44] LABS: CALCIUM 8.6 MG/DL (8.5-10.1)
[2020-10-30 06:45] LABS: TOTAL PROTEIN 6.9 GM/DL (6.4-8.2)
[2020-10-30 06:47] LABS: BILIRUBIN,TOTAL 0.3 MG/DL (0.1-1.0)
[2020-10-30] MEDS: inSUlin ASPART (NovoLOG) 1 UNIT/0.01 ML (CHARGE PER UNIT) SC SCH ×3 (06:48→15:41)
[2020-10-30 06:49] LABS: CREATININE SERUM 3.6 MG/DL (0.60-1.30)
[2020-10-30 06:51] LABS: MAGNESIUM 3.1 MG/DL (1.6-2.4)
--- NOTE | 2020-10-30 07:12 | Diagnostic Imaging Report ---
INDICATION: Hypoxia. EXAMINATION: Chest 10/30/2020 COMPARISON: 10/28/2020 FINDINGS: Scattered bilateral infiltrates worsened since previous examination. Heart is prominent. Pulmonary vasculature is congested. There are bilateral small pleural effusions. No pneumothorax. IMPRESSION: 1. Worsening appearance of the lungs with increasing bilateral infiltrates. Dictated by: Dictated on workstation # [id number]
[2020-10-30] MEDS ORDERED: PROPOFOL DRIP (ICU) 100 ML IV ONE (08:47)
[2020-10-30] MEDS ORDERED: fentaNYL DRIP PRE-MIX 250 ML IV ONE (08:50)
[2020-10-30] MEDS ORDERED: NS IV 1000 ML 1,000 ML ONE (08:56)
[2020-10-30] MEDS: fentaNYL DRIP PRE-MIX 250 ML IV SCH ×2 (09:26→22:53)
[2020-10-30] MEDS: PROPOFOL DRIP (ICU) 100 ML IV SCH ×5 (09:27→21:53)
[2020-10-30] MEDS ORDERED: FUROSEMIDE 40 MG/4 ML INJ (LASIX) ONE (09:56)
--- NOTE | 2020-10-30 09:58 | Diagnostic Imaging Report ---
INDICATION: Intubation. TIME OF EXAM: 09:17 a.m. COMPARISON: Correlation is made with prior chest from earlier same day. FINDINGS: Endotracheal tube has been placed, has the tip in good position above the shiela. NG tube passes below the diaphragm. Extensive bilateral infiltrates are noted. There are bilateral effusions. IMPRESSION: Satisfactory endotracheal tube placement. Dictated by: Dictated on workstation # [id number]
--- NOTE | 2020-10-30 10:08 | Anesthesia-Procedure Note ---
Procedures/Interventions Procedure Start/Stop/Diagnosis Date of Procedure: Oct 30, 2020 Start Time: 09:00 Stop Time: 09:50 Intubation RSI: Yes 100% pre-Ox, [id number]: Yes Intubation Method: orotracheal Videoscope used: Yes Grade View: 1 Medications: Propofol (200), Rocuronium (100), Versed (2) Mask Ventilation: positive Positive End Tide CO2: Yes Breath Sounds after Intubation: bilateral-equal ETT Securred @ (cm): 22 Intubated with ease: Yes Intubation Complications: no complications Post Intubation Xray-done: Yes Care turned over to: PICKLE MAKER Arterial Line Arterial Line Catheter: 20G Type: Radial Location: Left Procedure: prepped, draped in sterile fashion, good wave-form was obtained, patient tolerated procedure well, no immediate complications, post procedure a roberta cleaned, post procedure dressing applied MANUEL BRAXTON CRNA Oct 30, 2020 10:08
[2020-10-30] MEDS ORDERED: FUROSEMIDE 40 MG/4 ML INJ (LASIX) IVP NR (10:15)
[2020-10-30] MEDS ORDERED: NS (IVPB) 100 ML ONE (10:38)
[2020-10-30] MEDS: MULTIVIT W/MINERALS TAB (THERAGRAN M) PO SCH (11:19)
[2020-10-30] MEDS: VITAMIN D3 25 MCG (1,000 UNITS) TABLET PO SCH ×2 (11:20→18:56)
[2020-10-30] MEDS: CALCIUM CARBONATE 500 MG (TUMS) TAB.CHEW PO SCH ×2 (11:20→21:51)
[2020-10-30] MEDS: CLOPIDOGREL 75 MG (PLAVIX) TABLET PO SCH (11:20)
[2020-10-30] MEDS: CARVEDILOL 12.5 MG (COREG) TABLET PO SCH ×2 (11:20→21:34)
[2020-10-30] MEDS: CALCIUM ACETATE 667 MG CAP (PHOSLO) PO SCH ×3 (11:20→18:56)
[2020-10-30] MEDS: MICONAZOLE 2% POWDER (DESENEX AF) 90 GM TOP SCH ×2 (11:23→21:35)
[2020-10-30] MEDS: DAKIN'S 1/4 STRENGTH (0.125%) 473 ML BTL TOP SCH ×2 (11:23→21:35)
[2020-10-30] MEDS: ENOXAPARIN 40 MG/0.4 ML (LOVENOX) SYR SC SCH (11:28)
[2020-10-30 12:19] LABS: ABG BASE EXCESS -0.8 MMOL/L (-2.5-2.5); ABG OXYGEN SATURATION 99 % (94-100); ABG PCO2 37 MMHG (35-45); ABG PH 7.41 (7.37-7.43); ABG PO2 94 MMHG (79-93); ABG TCO2 24.6 MMOL/L (21.0-31.0)
[2020-10-30 12:21] LABS: ALLENS TEST ART LINE; INSPIRED O2 50%; VENTILATOR YES
[2020-10-30 12:22] LABS: PATIENT TEMP 35.8
--- NOTE | 2020-10-30 13:23 | Progress Note ---
Subjective Date Seen by a Provider: Oct 30, 2020 Time Seen by a Provider: 12:00 Subjective/Events-last exam worsening respiratory and renal status requiring intubation. will likely need CVVHD. Objective Exam Vital Signs Date Time Temp Pulse Resp B/P (MAP) Pulse Ox O2 Delivery O2 Flow Rate FiO2 10/30/20 11:28 67 154/52 10/30/20 11:11 36.0 10/30/20 11:00 68 24 157/53 (87) 100 Mechanical Ventilator 50.00 10/30/20 10:58 68 24 100 70 10/30/20 10:00 68 24 148/53 (84) 99 Mechanical Ventilator 50.00 10/30/20 09:27 68 112/53 10/30/20 09:24 100 100 10/30/20 09:00 77 21 120/61 (80) 100 NIV Bilevel 50.00 10/30/20 08:25 36.0 10/30/20 08:00 75 28 121/78 (92) 93 NIV Bilevel 50.00 10/30/20 06:26 69 10/30/20 06:00 72 21 106/64 (78) 93 NIV Bilevel 50.00 10/30/20 05:58 73 22 93 40.00 10/30/20 05:57 93 Nasal Cannula 10/30/20 05:56 93 NIV Bilevel 40 10/30/20 04:45 36.2 10/30/20 04:43 68 14 125/71 (89) 94 NIV Bilevel 50.00 10/30/20 01:47 73 25 94 40.00 10/30/20 01:00 73 10/30/20 00:05 36.4 10/30/20 00:00 75 17 123/57 (64) 90 NIV Bilevel 50.00 10/29/20 22:12 80 25 92 40.00 10/29/20 22:00 77 16 148/73 (104) 92 NIV Bilevel 50.00 10/29/20 21:36 NIV Bilevel 50.00 93 10/29/20 20:01 35.9 10/29/20 20:00 81 19 163/85 (111) 94 NIV Bilevel 50.00 10/29/20 19:00 82 10/29/20 18:05 80 25 94 40.00 10/29/20 16:00 75 11 182/124 (143) 94 NIV Bilevel 50.00 10/29/20 16:00 35.8 10/29/20 14:45 77 25 95 40.00 I & O 10/30/20 07:00 Intake Total 300 ml Output Total 600 ml Balance -300 ml Capillary Refill : Greater Than 3 SecondsLess Than 3 Seconds General Appearance: No Apparent Distress Neck: Full Range of Motion Respiratory: Decreased Breath Sounds, Rhonci Cardiovascular: Regular Rate, Rhythm Gastrointestinal: non tender, soft Extremity: Normal Capillary Refill Skin: Normal Color Lymphatic: No Adenopathy Results Lab Laboratory Tests 10/29/20 15:57: Glucometer 138H 10/29/20 21:09: Glucometer 137H 10/30/20 06:18: White Blood Count 5.9, Red Blood Count 2.82L, Hemoglobin 8.2L, Hematocrit 27L, Mean Corpuscular Volume 95, Mean Corpuscular Hemoglobin 29, Mean Corpuscular Hemoglobin Concent 31L, Red Cell Distribution Width 14.3, Platelet Count 143, Mean Platelet Volume 11.4, Immature Granulocyte % (Auto) 1, Neutrophils (%) (Auto) 82H, Lymphocytes (%) (Auto) 9L, Monocytes (%) (Auto) 7, Eosinophils (%) (Auto) 1, Basophils (%) (Auto) 1, Neutrophils # (Auto) 4.8, Lymphocytes # (Auto) 0.6L, Monocytes # (Auto) 0.4, Eosinophils # (Auto) 0.1, Basophils # (Auto) 0.0, Immature Granulocyte # (Auto) 0.0, Sodium Level 136, Potassium Level 5.2H, Chloride Level 103, Carbon Dioxide Level 22, Anion Gap 11, Blood Urea Nitrogen 92H, Creatinine 3.60H, Estimat Glomerular Filtration Rate 13, BUN/Creatinine Ratio 26, Glucose Level 96, Calcium Level 8.6, Corrected Calcium 9.3, Phosphorus Level 6.0H, Magnesium Level 3.1H, Total Bilirubin 0.3, Aspartate Amino Transf (AST/SGOT) 19, Alanine Aminotransferase (ALT/SGPT) 30, Alkaline Phosphatase 39L, Total Protein 6.9, Albumin 3.1L, Triglycerides Level 82 10/30/20 06:24: Blood Gas Puncture Site LEFT RADIAL, Blood Gas Patient Temperature 36.2, Arterial Blood pH 7.29*L, Arterial Blood Partial Pressure CO2 52H, Arterial Blood Partial Pressure O2 62L, Arterial Blood HCO3 25, Arterial Blood Total CO2 26.7, Arterial Blood Oxygen Saturation 90L, Arterial Blood Base Excess -0.9, Christian Test POSITIVE, Blood Gas Ventilator Setting NO, Blood Gas Inspired Oxygen 50 10/30/20 11:09: Glucometer 78 10/30/20 12:15: Blood Gas Puncture Site LT ARTLINE, Blood Gas Patient Temperature 35.8, Arterial Blood pH 7.41, Arterial Blood Partial Pressure CO2 37, Arterial Blood Partial Pressure O2 94H, Arterial Blood HCO3 23, Arterial Blood Total CO2 24.6, Arterial Blood Oxygen Saturation 99, Arterial Blood Base Excess -0.8, Christian Test ART LI NE, Blood Gas Ventilator Setting YES, Blood Gas Inspired Oxygen 50% Microbiology 10/23/20 Urine Culture - Final, Complete >=3 Gram Positive Isolates Group B Streptococci 10/23/20 Blood Culture - Final, Complete No growth 10/23/20 Influenza Types A,B Antigen (SULEIMAN) - Final, Complete Assessment/Plan Assessment/Plan Assess & Plan/Chief Complaint respiratory and renal failure. intubated and sedated now due to worsening failure. will need transfer for CVVHD. Clinical Quality Measures DVT/VTE Risk/Contraindication: Risk Factor Score Per Nursin RFS Level Per Nursing on Admit: 4+=Very High NATALIA NOVOA MD Oct 30, 2020 13:23
[2020-10-30] MEDS ORDERED: ROCURONIUM 10 MG/ML 5 ML SYRINGE IV ONE (15:03)
[2020-10-30] MEDS ORDERED: MIDAZOLAM 5 MG/5 ML (VERSED) VIAL INJ ONE (15:03)
--- NOTE | 2020-10-30 16:18 | Progress Note - Hospitalist ---
Subjective HPI/CC On Admission Date Seen by Provider: Oct 30, 2020 Time Seen by Provider: 08:30 Pt is a 54yoCF with a PMH of IDDMII, HTN, CKD who presented to the ER due to hypoxia. She states over the past couple of days she has had chills, low grade temperatures, and some SOB and was around a family member with "bronchitis." She presented to wound care today for hyperbaric treatment and was found to be hypoxic in the 80s. She noticed she as more short of breath when she laid back in the machine. She denies any known COVID exposure andstates she doesn't go anywhere but the hospital for her treatments. She was found to have a right basilar infiltrate. She reports no previous history of oxygen use. Subjective/Events-last exam She is still wearing BiPAP. She is still feeling short of breath. She denies any pain. She thinks she is feeling better. We discussed her worsening kidney function and the need for transfer and she was agreeable. Objective Exam Vital Signs Vital Signs Date Time Temp Pulse Resp B/P (MAP) Pulse Ox O2 Delivery O2 Flow Rate FiO2 10/30/20 15:21 40 10/30/20 15:18 35.6 10/30/20 15:00 66 24 132/50 (77) 98 Mechanical Ventilator 50.00 Capillary Refill : Greater Than 3 SecondsLess Than 3 Seconds General Appearance: No Apparent Distress, Obese HEENT: Other (wearing BiPAP mask) Neck: Normal Inspection, Supple Respiratory: Crackles, Decreased Breath Sounds, Respiratory Distress (wearing BiPAP) Cardiovascular: Regular Rate, Rhythm, No Murmur Gastrointestinal: Normal Bowel Sounds, Non Tender, Soft Extremity: Normal Inspection, Non Tender, Pedal Edema Neurologic/Psychiatric: Alert, Oriented x3, No Motor/Sensory Deficits, Normal Mood/Affect Skin: Normal Color, Warm/Dry Results/Procedures Lab Laboratory Tests 10/30/20 06:18 Patient resulted labs reviewed. Imaging: Reviewed Imaging Report Assessment/Plan Assessment and Plan Assess & Plan/Chief Complaint Acute kidney injury superimposed on chronic kidney disease Hyperphosphatemia Hyperkalemia BUN/Cr 92/3.6, trending up Bicarb 22, K 5.2, Phos 6 Increase Lasix Attempting transfer for nephrology/hemodialysis, no available beds found at this time Acute respiratory failure with hypoxia BiPAP Pneumonia s/p Rocephin and Azithromycin Acute on chronic HFpEF Lasix T2DM with hypoglycemia Decrease Levemir SSI Morbid obesity Clinically significant, no acute management needs DVT Prophylaxis: Lovenox Diagnosis/Problems Diagnosis/Problems (1) Acute kidney injury superimposed on chronic kidney disease Status: Acute (2) PNA (pneumonia) Status: Acute (3) Acute respiratory failure with hypoxia Status: Acute (4) (HFpEF) heart failure with preserved ejection fraction Status: Acute Qualifiers: Heart failure chronicity: acute Qualified Codes: I50.31 - Acute diastolic (congestive) heart failure (5) T2DM (type 2 diabetes mellitus) Status: Acute Qualifiers: Diabetes mellitus a/c technician insulin use: with intermediate use Diabetes mellitus complication status: with hypoglycemia Diabetes mellitus complication detail: without coma Qualified Codes: E11.649 - Type 2 diabetes mellitus with hypoglycemia without coma; Z79.4 - belt builder (current) use of insulin (6) Morbid obesity with BMI of 45.0-49.9, adult Status: Chronic Clinical Quality Measures DVT/VTE Risk/Contraindication: Risk Factor Score Per Nursin RFS Level Per Nursing on Admit: 4+=Very High MARYJANE DODSON MD Oct 30, 2020 16:18
[2020-10-30] MEDS ORDERED: DEXTROSE 50% 50 ML (IMS) SYR ONE (21:25)
[2020-10-30] MEDS ORDERED: DEXTROSE 50% 50 ML (IMS) SYR IV ONE (21:30)
[2020-10-30] MEDS: diphenhydrAMINE 25 MG TAB (BENADRYL) PO SCH (21:33)
[2020-10-30] MEDS: SIMvastatin 10 MG (ZOCOR) TAB PO SCH (21:34)
[2020-10-30] MEDS: amLODIPine 10 MG (NORVASC) TAB PO SCH (21:51)
[2020-10-31] VITALS (30 sets, daily range): BP systolic 86–129; BP diastolic 32–46
[2020-10-31] MEDS: PROPOFOL DRIP (ICU) 100 ML IV SCH ×8 (00:11→20:31)
[2020-10-31] MEDS: inSUlin ASPART (NovoLOG) 1 UNIT/0.01 ML (CHARGE PER UNIT) SC SCH ×5 (00:11→23:35)
[2020-10-31] MEDS: RT-ALBUTEROL INHALER HFA (VENTOLIN HFA) 18 GM IH SCH ×5 (02:20→19:06)
[2020-10-31 03:03] LABS: ABG BASE EXCESS 1.4 MMOL/L (-2.5-2.5); ABG OXYGEN SATURATION 97 % (94-100); ABG PCO2 23 MMHG (35-45); ABG PO2 61 MMHG (79-93); ABG TCO2 24.7 MMOL/L (21.0-31.0); BASOPHILS % (AUTO) 1 % (0-10); EOSINOPHILS # (AUTO) 0.1 10^3/uL (0.0-0.3); EOSINOPHILS % (AUTO) 3 % (0-10); HEMATOCRIT 23 % (35-52); HEMOGLOBIN 7.6 g/dL (11.5-16.0); LYMPHOCYTES # (AUTO) 1.1 10^3/uL (1.0-4.0); LYMPHOCYTES % (AUTO) 29 % (12-44); MEAN CORPUSCULAR HEMOGLOBIN 29 pg (25-34); MEAN CORPUSCULAR HGB CONC 33 g/dL (32-36); MEAN CORPUSCULAR VOLUME 87 fL (80-99); MEAN PLATELET VOLUME 11.3 fL (9.0-12.2); MONOCYTES # (AUTO) 0.2 10^3/uL (0.0-1.0); MONOCYTES % (AUTO) 5 % (0-12); NEUTROPHILS # (AUTO) 2.3 10^3/uL (1.8-7.8); NEUTROPHILS % (AUTO) 62 % (42-75); PLATELET COUNT 153 10^3/uL (130-400); WHITE BLOOD COUNT 3.6 10^3/uL (4.3-11.0)
[2020-10-31 03:04] LABS: ALLENS TEST ARTLINE; INSPIRED O2 24; PATIENT TEMP 33.6; VENTILATOR YES
[2020-10-31 03:11] LABS: POTASSIUM 3.6 MMOL/L (3.6-5.0)
[2020-10-31 03:12] LABS: CALCIUM 8.3 MG/DL (8.5-10.1)
[2020-10-31 03:17] LABS: CREATININE SERUM 3.18 MG/DL (0.60-1.30); PHOSPHORUS 3.6 MG/DL (2.3-4.7)
[2020-10-31 03:19] LABS: MAGNESIUM 2.9 MG/DL (1.6-2.4)
[2020-10-31] MEDS ORDERED: DEXTROSE 50% 50 ML (IMS) SYR IV ONE (03:30)
--- NOTE | 2020-10-31 03:54 | Pulmonary Progress Note ---
HADLEY ABRAHAM,MED STUDENT 10/31/20 0354: Subjective Date Seen by a Provider: Oct 31, 2020 Time Seen by a Provider: 03:31 Subjective/Events-last exam Pt intubated and sedated Sepsis Event Evaluation Height, Weight, BMI Height: '" Weight: lbs. oz. kg; 48.67 BMI Method: Exam Exam Vital Signs Date Time Temp Pulse Resp B/P (MAP) Pulse Ox O2 Delivery O2 Flow Rate FiO2 10/31/20 03:08 57 116/48 10/31/20 03:00 58 25 129/46 (73) 98 Mechanical Ventilator 50.00 10/31/20 02:20 55 24 98 30 10/31/20 02:00 52 24 108/40 (62) 98 Mechanical Ventilator 50.00 10/31/20 01:00 52 10/31/20 01:00 52 24 113/36 (61) 98 Mechanical Ventilator 50.00 10/31/20 00:11 56 117/45 10/31/20 00:00 59 24 119/46 (70) 98 Mechanical Ventilator 50.00 10/30/20 23:00 63 24 129/50 (76) 99 Mechanical Ventilator 50.00 10/30/20 22:00 65 24 131/50 (77) 99 Mechanical Ventilator 50.00 10/30/20 21:53 67 129/49 10/30/20 21:38 54 24 98 35 10/30/20 21:00 64 24 129/50 (76) 100 Mechanical Ventilator 50.00 10/30/20 20:44 98 Mechanical Ventilator 35 10/30/20 20:15 35.8 10/30/20 20:00 67 24 131/51 (77) 99 Mechanical Ventilator 50.00 10/30/20 19:05 68 136/52 10/30/20 19:00 67 24 132/51 (78) 99 Mechanical Ventilator 50.00 10/30/20 19:00 67 10/30/20 18:19 35 10/30/20 18:12 66 24 98 40 10/30/20 18:00 66 24 132/51 (78) 100 Mechanical Ventilator 50.00 10/30/20 17:00 64 24 131/52 (78) 100 Mechanical Ventilator 50.00 10/30/20 16:36 138/54 10/30/20 16:00 67 24 133/51 (78) 100 Mechanical Ventilator 50.00 10/30/20 15:21 40 10/30/20 15:18 35.6 10/30/20 15:00 66 24 132/50 (77) 98 Mechanical Ventilator 50.00 10/30/20 14:53 66 24 98 70 10/30/20 14:00 64 24 137/51 (79) 100 Mechanical Ventilator 50.00 10/30/20 13:00 64 24 138/51 (80) 100 Mechanical Ventilator 50.00 10/30/20 12:41 65 10/30/20 12:00 66 24 149/51 (83) 99 Mechanical Ventilator 50.00 10/30/20 11:28 67 154/52 10/30/20 11:11 36.0 10/30/20 11:00 68 24 157/53 (87) 100 Mechanical Ventilator 50.00 10/30/20 10:58 68 24 100 70 10/30/20 10:00 68 24 148/53 (84) 99 Mechanical Ventilator 50.00 10/30/20 09:27 68 112/53 10/30/20 09:24 100 100 10/30/20 09:00 77 21 120/61 (80) 100 NIV Bilevel 50.00 10/30/20 08:25 36.0 10/30/20 08:00 100 Mechanical Ventilator 100 10/30/20 08:00 75 28 121/78 (92) 93 NIV Bilevel 50.00 10/30/20 06:26 69 10/30/20 06:00 72 21 106/64 (78) 93 NIV Bilevel 50.00 10/30/20 05:58 73 22 93 40.00 10/30/20 05:57 93 Nasal Cannula 10/30/20 05:56 93 NIV Bilevel 40 10/30/20 04:45 36.2 10/30/20 04:43 68 14 125/71 (89) 94 NIV Bilevel 50.00 I & O 10/31/20 07:00 Intake Total 805 ml Output Total 3950 ml Balance -3145 ml Height & Weight Height: '" Weight: lbs. oz. kg; 48.67 BMI Method: General Appearance: No Apparent Distress, Obese, Other (intubated and sedated) HEENT: Other ( endotracheal tube in place) Respiratory: Crackles, Decreased Breath Sounds Cardiovascular: Regular Rate, Rhythm, No Murmur Capillary Refill: Less Than 3 Seconds Gastrointestinal: non tender, soft Extremity: Normal Inspection, Non Tender, Pedal Edema Neurologic/Psychiatric: Other (sedated) Skin: Normal Color, Warm/Dry Results Lab Laboratory Tests 10/29/20 05:40 10/30/20 06:18 10/31/20 02:49 Assessment/Plan Assessment/Plan CAP with hypoxia -Intubated 10/30 -24/450/10 24%O2 -Sedation: Propofol and Fentanyl -COVID negative -s/p Rocephin and Azithro -procal 0.22 Acute on chronic renal failure with hyperkalemia - transfer for neprology when bed is available. -Dr. Young attempted to transfer pt 10/29 and 10/30 however was unable secondary to no ICU beds available. Hyperphosphatemia -Calcium acetate given -improved Hyperkalemia -lasix given Pulmonary edema with bilateral R>.Lpleural effusion -S/p thoracentesis -Lasix -Check Echo --shows diastolic CHF Elevated d-dimer -V/Q scan negative Hypoglycemia -EICU managed overnight -Amp D50 x2 given -Restart TF IDDMII Chronic diabetic foot wound HTN DVT ppx: Lovenox as above GHANSHYAM HICKS DO 10/31/20 0533: Subjective Time Seen by a Provider: 05:28 Exam Exam General Appearance: No Apparent Distress, Obese Respiratory: Crackles, Decreased Breath Sounds Cardiovascular: Regular Rate, Rhythm, No Murmur Gastrointestinal: non tender, soft Extremity: Normal Inspection, Pedal Edema Skin: Normal Color, Warm/Dry Assessment/Plan Assessment/Plan CAP with hypoxia -Intubated 10/30 -24/450/10 24%O2 -Decrease VT to 400 -Sedation: Propofol and Fentanyl -Repeat Labs at 7AM -Restart TF -COVID negative -s/p Rocephin and Azithro -procal 0.22 Acute on chronic renal failure with hyperkalemia - transfer for neprology when bed is available. - unable secondary to no ICU beds available. -Labs pending Pulmonary edema with bilateral R>.Lpleural effusion -S/p thoracentesis -Lasix -Check Echo --shows diastolic CHF Anemia -Repeat labs at 7am Elevated d-dimer -V/Q scan negative Hypoglycemia -EICU managed overnight -Amp D50 x2 given IDDMII Chronic diabetic foot wound HTN CKD DVT ppx: Lovenox as above HADLEY ABRAHAM,MED STUDENT Oct 31, 2020 03:54 GHANSHYAM HICKS DO Oct 31, 2020 05:33
[2020-10-31] MEDS: fentaNYL DRIP PRE-MIX 250 ML IV SCH ×3 (04:36→18:23)
[2020-10-31 05:58] LABS: BASOPHILS % (AUTO) 1 % (0-10); EOSINOPHILS # (AUTO) 0.1 10^3/uL (0.0-0.3); EOSINOPHILS % (AUTO) 4 % (0-10); HEMATOCRIT 23 % (35-52); HEMOGLOBIN 7.8 g/dL (11.5-16.0); LYMPHOCYTES # (AUTO) 0.8 10^3/uL (1.0-4.0); LYMPHOCYTES % (AUTO) 22 % (12-44); MEAN CORPUSCULAR HEMOGLOBIN 29 pg (25-34); MEAN CORPUSCULAR HGB CONC 33 g/dL (32-36); MEAN CORPUSCULAR VOLUME 88 fL (80-99); MEAN PLATELET VOLUME 11.4 fL (9.0-12.2); MONOCYTES # (AUTO) 0.3 10^3/uL (0.0-1.0); MONOCYTES % (AUTO) 7 % (0-12); NEUTROPHILS # (AUTO) 2.5 10^3/uL (1.8-7.8); NEUTROPHILS % (AUTO) 66 % (42-75); PLATELET COUNT 155 10^3/uL (130-400); WHITE BLOOD COUNT 3.8 10^3/uL (4.3-11.0)
[2020-10-31] MEDS: D5 LR IV SOLUTION 1,000 ML IV SCH ×3 (06:03→21:18)
[2020-10-31 06:08] LABS: ALBUMIN 2.6 GM/DL (3.2-4.5); POTASSIUM 3.7 MMOL/L (3.6-5.0)
[2020-10-31 06:09] LABS: CALCIUM 8.3 MG/DL (8.5-10.1)
[2020-10-31 06:10] LABS: TOTAL PROTEIN 5.9 GM/DL (6.4-8.2)
[2020-10-31 06:12] LABS: BILIRUBIN,TOTAL 0.3 MG/DL (0.1-1.0)
[2020-10-31 06:13] LABS: PHOSPHORUS 3.5 MG/DL (2.3-4.7)
[2020-10-31 06:14] LABS: CREATININE SERUM 3.22 MG/DL (0.60-1.30)
[2020-10-31] MEDS: POTASSIUM CL 10MEQ/50ML IVPB 50 ML IV SCH (06:23)
[2020-10-31] MEDS: MAGNESIUM 1 GM/100 ML IVPB 100 ML IV SCH (06:23)
[2020-10-31] MEDS: KCL 20 MEQ TAB (K-DUR) PO SCH (06:23)
[2020-10-31] MEDS: MULTIVIT W/MINERALS TAB (THERAGRAN M) PO SCH (06:43)
[2020-10-31] MEDS: ADVAIR HFA 115/21 MCG INHALER 8 GM IH SCH ×2 (06:51→19:05)
[2020-10-31 06:59] LABS: ABG BASE EXCESS 1.7 MMOL/L (-2.5-2.5); ABG OXYGEN SATURATION 95 % (94-100); ABG PCO2 28 MMHG (35-45); ABG PH 7.54 (7.37-7.43); ABG PO2 63 MMHG (79-93); ABG TCO2 25.5 MMOL/L (21.0-31.0)
[2020-10-31 07:01] LABS: ALLENS TEST ARTLINE 24; INSPIRED O2 24; PATIENT TEMP 35.5; VENTILATOR YES
--- NOTE | 2020-10-31 07:06 | Diagnostic Imaging Report ---
INDICATION: Respiratory distress. Intubation Portable chest shows normal heart size and vascularity. There is right lung infiltrate. There is evidence of bilateral effusions. The ET tube and OG tube remain in place. There is no significant change from 10/30/2020. IMPRESSION: Stable infiltrates and effusions. Dictated by: Dictated on workstation # [id number]
[2020-10-31] MEDS ORDERED: FUROSEMIDE 40 MG/4 ML INJ (LASIX) IVP NR (08:00)
[2020-10-31] MEDS: CLOPIDOGREL 75 MG (PLAVIX) TABLET PO SCH (09:00)
[2020-10-31] MEDS: CALCIUM CARBONATE 500 MG (TUMS) TAB.CHEW PO SCH ×2 (09:00→20:47)
[2020-10-31] MEDS: CALCIUM ACETATE 667 MG CAP (PHOSLO) PO SCH ×3 (09:00→18:22)
[2020-10-31] MEDS: VITAMIN D3 25 MCG (1,000 UNITS) TABLET PO SCH ×2 (09:00→18:22)
[2020-10-31] MEDS: CARVEDILOL 12.5 MG (COREG) TABLET PO SCH ×2 (09:01→20:49)
[2020-10-31] MEDS: DAKIN'S 1/4 STRENGTH (0.125%) 473 ML BTL TOP SCH ×2 (09:01→20:49)
[2020-10-31] MEDS: MICONAZOLE 2% POWDER (DESENEX AF) 90 GM TOP SCH ×2 (09:01→20:48)
[2020-10-31] MEDS: ENOXAPARIN 40 MG/0.4 ML (LOVENOX) SYR SC SCH (13:20)
[2020-10-31 13:33] LABS: ABG OXYGEN SATURATION 99 % (94-100); ABG PCO2 29 MMHG (35-45); ABG PH 7.43 (7.37-7.43); ABG PO2 91 MMHG (79-93); ABG TCO2 19.8 MMOL/L (21.0-31.0)
[2020-10-31 13:35] LABS: ALLENS TEST YES-POS; INSPIRED O2 25%; PATIENT TEMP 96.6; VENTILATOR YES
--- NOTE | 2020-10-31 14:12 | Progress Note - Hospitalist ---
Subjective HPI/CC On Admission Date Seen by Provider: Oct 31, 2020 Time Seen by Provider: 08:50 Pt is a 54yoCF with a PMH of IDDMII, HTN, CKD who presented to the ER due to hypoxia. She states over the past couple of days she has had chills, low grade temperatures, and some SOB and was around a family member with "bronchitis." She presented to wound care today for hyperbaric treatment and was found to be hypoxic in the 80s. She noticed she as more short of breath when she laid back in the machine. She denies any known COVID exposure andstates she doesn't go anywhere but the hospital for her treatments. She was found to have a right basilar infiltrate. She reports no previous history of oxygen use. Subjective/Events-last exam she is intubated and sedated. Objective Exam Vital Signs Vital Signs Date Time Temp Pulse Resp B/P (MAP) Pulse Ox O2 Delivery O2 Flow Rate FiO2 10/31/20 14:00 65 10/31/20 12:00 20 88/34 (52) 94 Mechanical Ventilator 50.00 10/31/20 10:37 21 10/31/20 07:00 35.5 Capillary Refill : Greater Than 3 SecondsLess Than 3 Seconds General Appearance: No Apparent Distress, Obese Respiratory: Lungs Clear, No Respiratory Distress, Other (intubated and mecha nically ventilated) Cardiovascular: Regular Rate, Rhythm, No Murmur Gastrointestinal: Normal Bowel Sounds, Soft Extremity: Pedal Edema, Other (left foot amputation) Neurologic/Psychiatric: Other (sedated) Skin: Normal Color, Warm/Dry Results/Procedures Lab Laboratory Tests 10/31/20 02:49 10/31/20 05:50 Patient resulted labs reviewed. Imaging: Reviewed Imaging Report Assessment/Plan Assessment and Plan Assess & Plan/Chief Complaint Acute kidney injury superimposed on chronic kidney disease Hyperphosphatemia Hyperkalemia BUN/Cr 92/3.22, improving slightly Bicarb 24, K 3.7, Phos 3.5 Continue Lasix Attempting transfer for nephrology/hemodialysis, no available beds found at this time Acute respiratory failure with hypoxia BiPAP Pneumonia s/p Rocephin and Azithromycin Acute on chronic HFpEF Lasix T2DM with hypoglycemia Decreased Levemir SSI Morbid obesity Clinically significant, no acute management needs DVT Prophylaxis: Lovenox Diagnosis/Problems Diagnosis/Problems (1) Acute kidney injury superimposed on chronic kidney disease Status: Acute (2) PNA (pneumonia) Status: Acute (3) Acute respiratory failure with hypoxia Status: Acute (4) (HFpEF) heart failure with preserved ejection fraction Status: Acute Qualifiers: Heart failure chronicity: acute Qualified Codes: I50.31 - Acute diastolic (congestive) heart failure (5) T2DM (type 2 diabetes mellitus) Status: Acute Qualifiers: Diabetes mellitus termite helper insulin use: with termite helper use Diabetes mellitus complication status: with hypoglycemia Diabetes mellitus complication detail: without coma Qualified Codes: E11.649 - Type 2 diabetes mellitus with hypoglycemia without coma; Z79.4 - intermediate (current) use of insulin (6) Morbid obesity with BMI of 45.0-49.9, adult Status: Chronic Clinical Quality Measures DVT/VTE Risk/Contraindication: Risk Factor Score Per Nursin RFS Level Per Nursing on Admit: 4+=Very High MARYJANE DODSON MD Oct 31, 2020 14:12
[2020-10-31 15:58] LABS: CALCIUM 8.2 MG/DL (8.5-10.1); CREATININE SERUM 3.08 MG/DL (0.60-1.30); POTASSIUM 4.2 MMOL/L (3.6-5.0)
[2020-10-31] MEDS: diphenhydrAMINE 25 MG TAB (BENADRYL) PO SCH (20:48)
[2020-10-31] MEDS: SIMvastatin 10 MG (ZOCOR) TAB PO SCH (20:48)
[2020-10-31] MEDS: amLODIPine 10 MG (NORVASC) TAB PO SCH (20:48)
[2020-11-01] VITALS (15 sets, daily range): BP systolic 95–138; BP diastolic 36–53
[2020-11-01 02:09] LABS: BASOPHILS % (AUTO) 1 % (0-10); EOSINOPHILS # (AUTO) 0.1 10^3/uL (0.0-0.3); EOSINOPHILS % (AUTO) 2 % (0-10); HEMATOCRIT 25 % (35-52); HEMOGLOBIN 7.9 g/dL (11.5-16.0); LYMPHOCYTES # (AUTO) 0.6 10^3/uL (1.0-4.0); LYMPHOCYTES % (AUTO) 9 % (12-44); MEAN CORPUSCULAR HEMOGLOBIN 29 pg (25-34); MEAN CORPUSCULAR HGB CONC 31 g/dL (32-36); MEAN CORPUSCULAR VOLUME 93 fL (80-99); MEAN PLATELET VOLUME 11.2 fL (9.0-12.2); MONOCYTES # (AUTO) 0.5 10^3/uL (0.0-1.0); MONOCYTES % (AUTO) 7 % (0-12); NEUTROPHILS # (AUTO) 5.4 10^3/uL (1.8-7.8); NEUTROPHILS % (AUTO) 81 % (42-75); PLATELET COUNT 158 10^3/uL (130-400); WHITE BLOOD COUNT 6.6 10^3/uL (4.3-11.0)
[2020-11-01 02:10] LABS: ABG BASE EXCESS 0.1 MMOL/L (-2.5-2.5); ABG OXYGEN SATURATION 95 % (94-100); ABG PCO2 50 MMHG (35-45); ABG PO2 79 MMHG (79-93); ABG TCO2 26.7 MMOL/L (21.0-31.0)
[2020-11-01 02:11] LABS: ALLENS TEST ART LINE; INSPIRED O2 35%; VENTILATOR YES
[2020-11-01] MEDS: RT-ALBUTEROL INHALER HFA (VENTOLIN HFA) 18 GM IH SCH ×3 (02:11→11:31)
[2020-11-01 02:13] LABS: ABG PH 7.32 (7.37-7.43); PATIENT TEMP 37.6
[2020-11-01 02:36] LABS: POTASSIUM 4.9 MMOL/L (3.6-5.0)
[2020-11-01 02:38] LABS: CALCIUM 8.1 MG/DL (8.5-10.1)
[2020-11-01 02:42] LABS: CREATININE SERUM 3.3 MG/DL (0.60-1.30)
[2020-11-01 02:45] LABS: MAGNESIUM 2.8 MG/DL (1.6-2.4)
[2020-11-01] MEDS: PROPOFOL DRIP (ICU) 100 ML IV SCH ×2 (03:49→03:50)
[2020-11-01] MEDS: fentaNYL DRIP PRE-MIX 250 ML IV SCH ×2 (03:49→13:04)
--- NOTE | 2020-11-01 03:57 | Pulmonary Progress Note ---
HADLEY ABRAHAM,MED STUDENT 11/01/20 0357: Subjective Date Seen by a Provider: Nov 01, 2020 Time Seen by a Provider: 03:54 Subjective/Events-last exam Pt sedated and on vent Sepsis Event Evaluation Height, Weight, BMI Height: '" Weight: lbs. oz. kg; 48.67 BMI Method: Exam Exam Vital Signs Date Time Temp Pulse Resp B/P (MAP) Pulse Ox O2 Delivery O2 Flow Rate FiO2 11/01/20 03:50 77 108/40 11/01/20 03:49 77 108/40 11/01/20 02:35 37.4 11/01/20 02:11 79 20 92 35 11/01/20 02:00 78 20 93 Mechanical Ventilator 35.00 11/01/20 01:40 37.6 11/01/20 01:00 81 20 94 Mechanical Ventilator 35.00 11/01/20 00:53 37.7 11/01/20 00:41 79 10/31/20 23:32 38.4 10/31/20 23:00 80 20 95/36 (55) 92 10/31/20 22:07 82 20 92 35 10/31/20 22:00 82 20 97/36 (56) 92 10/31/20 21:00 78 20 98/37 (57) 94 10/31/20 20:31 70 107/40 10/31/20 20:28 79 107/40 10/31/20 20:14 98 Mechanical Ventilator 35 10/31/20 20:00 78 20 102/37 (58) 94 Mechanical Ventilator 35.00 10/31/20 19:41 37.2 10/31/20 19:06 75 20 93 35 10/31/20 19:00 75 20 101/37 (58) 94 Mechanical Ventilator 35.00 10/31/20 18:00 74 10/31/20 18:00 73 20 102/37 (58) 94 Mechanical Ventilator 35.00 10/31/20 17:00 71 20 100/38 (58) 95 Mechanical Ventilator 35.00 10/31/20 16:20 Mechanical Ventilator 35.00 10/31/20 16:00 68 20 98/35 (56) 90 Mechanical Ventilator 50.00 10/31/20 15:51 36.0 10/31/20 15:07 66 20 90 25 10/31/20 15:00 66 20 93/34 (53) 91 Mechanical Ventilator 50.00 10/31/20 14:00 65 20 99/36 (57) 91 Mechanical Ventilator 50.00 10/31/20 14:00 65 10/31/20 13:59 65 10/31/20 13:00 61 20 86/32 (50) 92 Mechanical Ventilator 50.00 10/31/20 12:27 61 10/31/20 12:00 62 20 88/34 (52) 94 Mechanical Ventilator 50.00 10/31/20 11:00 60 20 96/37 (56) 94 Mechanical Ventilator 50.00 10/31/20 10:37 57 20 90 21 10/31/20 10:00 55 24 101/39 (59) 94 Mechanical Ventilator 50.00 10/31/20 09:00 52 24 107/41 (63) 94 Mechanical Ventilator 50.00 10/31/20 08:57 52 10/31/20 08:57 52 10/31/20 08:00 98 Mechanical Ventilator 35 10/31/20 08:00 52 24 96/37 (56) 94 Mechanical Ventilator 50.00 10/31/20 07:08 21 10/31/20 07:04 47 10/31/20 07:00 54 24 99/40 (59) 97 Mechanical Ventilator 50.00 10/31/20 07:00 35.5 10/31/20 06:51 54 24 97 24 10/31/20 06:00 52 24 97/40 (59) 97 Mechanical Ventilator 50.00 10/31/20 05:51 54 104/45 10/31/20 05:00 56 24 101/42 (61) 97 Mechanical Ventilator 50.00 10/31/20 04:01 35.9 10/31/20 04:00 58 24 112/45 (67) 97 Mechanical Ventilator 50.00 I & O 11/01/20 07:00 Intake Total 980 ml Output Total 950 ml Balance 30 ml Height & Weight Height: '" Weight: lbs. oz. kg; 48.67 BMI Method: General Appearance: No Apparent Distress, WD/WN, Obese HEENT: Other ( endotracheal tube in place) Respiratory: Lungs Clear, No Respiratory Distress, Other (intubated and mechanically ventilated) Cardiovascular: Regular Rate, Rhythm, No Murmur Capillary Refill: Less Than 3 Seconds Gastrointestinal: non tender, soft Extremity: Pedal Edema, Other (left foot amputation) Neurologic/Psychiatric: Other (sedated) Skin: Normal Color, Warm/Dry Results Lab Laboratory Tests 10/30/20 06:18 10/31/20 02:49 10/31/20 05:50 10/31/20 15:30 11/01/20 01:54 Assessment/Plan Assessment/Plan CAP with hypoxia -Intubated 10/30 -370/8 35%O2 -Sedation: Propofol and Fentanyl -COVID negative -s/p Rocephin and Azithro Acute on chronic renal failure with hyperkalemia - transfer for neprology when bed is available. -Unable to secondary to no ICU beds available Hyperphosphatemia -Calcium acetate given Hyperkalemia -lasix given Pulmonary edema with bilateral R>.Lpleural effusion -S/p thoracentesis -Lasix -Check Echo --shows diastolic CHF Elevated d-dimer -V/Q scan negative Hypoglycemia -Monitor IDDMII Chronic diabetic foot wound HTN DVT ppx: Lovenox as above GHANSHYAM GILL DO 11/01/20 0544: Subjective Subjective/Events-last exam Pt is sedated on vent. Assessment/Plan Assessment/Plan CAP with hypoxia -Intubated 10/30 -370/8 35%O2 -Sedation: Propofol and Fentanyl -COVID negative -s/p Rocephin and Azithro Acute on chronic renal failure with hyperkalemia - transfer for neprology when bed is available. -Unable to secondary to no ICU beds available -[facility] to transfer to [facility]. Hyperphosphatemia -Calcium acetate given Hyperkalemia -Will give bicarb 2amps x 1 Pulmonary edema with bilateral R>.Lpleural effusion -S/p thoracentesis -Lasix -Check Echo --shows diastolic CHF Elevated d-dimer -V/Q scan negative Hypoglycemia -Monitor IDDMII Chronic diabetic foot wound HTN DVT ppx: Lovenox as above Supervisory-Addendum Brief Verification & Attestation Participated in pt care: history, MDM, physical Personally performed: exam, history, MDM, supervision of care Care discussed with: Medical Student Procedures: n/a Results interpretation: Verified all documentation Verification and Attestation of Medical Student E/M Service A medical student performed and documented this service in my presence. I reviewed and verified all information documented by the medical student and made modifications to such information, when appropriate. I personally performed the physical exam and medical decision making. Ghanshyam Gill, Nov 01, 2020,13:44 HADLEY ABRAHAM MED STUDENT Nov 01, 2020 03:57 GHANSHYAM GILL DO Nov 01, 2020 05:44
[2020-11-01] MEDS: D5 LR IV SOLUTION 1,000 ML IV SCH ×2 (04:57→13:04)
[2020-11-01] MEDS: POTASSIUM CL 10MEQ/50ML IVPB 50 ML IV SCH (05:07)
[2020-11-01] MEDS: MAGNESIUM 1 GM/100 ML IVPB 100 ML IV SCH (05:08)
[2020-11-01] MEDS: inSUlin ASPART (NovoLOG) 1 UNIT/0.01 ML (CHARGE PER UNIT) SC SCH ×2 (05:08→11:28)
[2020-11-01] MEDS: KCL 20 MEQ TAB (K-DUR) PO SCH (05:08)
[2020-11-01] MEDS ORDERED: MIDAZOLAM DRIP PRE-MIX 100 ML IV SCH (05:45)
[2020-11-01] MEDS ORDERED: SODIUM BICARB 8.4% 50 MEQ/50 ML VIAL IV ONE (05:45)
[2020-11-01] MEDS ORDERED: LACTATED RINGERS 1,000 ML IV SCH (05:45)
[2020-11-01] MEDS: MULTIVIT W/MINERALS TAB (THERAGRAN M) PO SCH (06:05)
[2020-11-01] MEDS: ADVAIR HFA 115/21 MCG INHALER 8 GM IH SCH (06:39)
--- NOTE | 2020-11-01 07:16 | Diagnostic Imaging Report ---
EXAMINATION: Chest 1 view HISTORY: Hypoxia. Intubated. COMPARISON: 10/31/2020. FINDINGS: The endotracheal tube and enteric tube are stable in configuration. Hazy opacities are seen in the right mid and lower lung with stable bilateral pleural effusions. No evidence of pneumothorax. The cardiac silhouette is unchanged. No acute osseous abnormalities. IMPRESSION: 1. Stable bilateral pleural effusions with stable hazy opacities in the mid and lower right lung. 2. Stable support devices. Dictated by: Dictated on workstation # [id number]
[2020-11-01] MEDS ORDERED: FUROSEMIDE 40 MG/4 ML INJ (LASIX) IVP NR (08:00)
[2020-11-01] MEDS: VITAMIN D3 25 MCG (1,000 UNITS) TABLET PO SCH (10:18)
[2020-11-01] MEDS: CALCIUM ACETATE 667 MG CAP (PHOSLO) PO SCH ×2 (10:19→13:03)
[2020-11-01] MEDS: CALCIUM CARBONATE 500 MG (TUMS) TAB.CHEW PO SCH (10:19)
[2020-11-01] MEDS: CARVEDILOL 12.5 MG (COREG) TABLET PO SCH (10:20)
[2020-11-01] MEDS: CLOPIDOGREL 75 MG (PLAVIX) TABLET PO SCH (10:20)
[2020-11-01] MEDS: MICONAZOLE 2% POWDER (DESENEX AF) 90 GM TOP SCH (10:22)
[2020-11-01] MEDS: DAKIN'S 1/4 STRENGTH (0.125%) 473 ML BTL TOP SCH (10:22)
[2020-11-01] MEDS: ENOXAPARIN 40 MG/0.4 ML (LOVENOX) SYR SC SCH (11:28)
== END 2020-11-01 13:56 | DRG 208 ==
LOC: EDUNIT# 08:45 → ER 08:47 → 4TH 11:21 → ICU 10-29 10:12
PROVIDERS: ADMIT Family Medicine; ATTEND Internal Medicine
PROC: 5A09557 Assistance with Respiratory Ventilation, Greater than 96 Consecutive Hours, Continuous Positive Airway Pressure (ICD-10-PCS; 2020-10-25)
PROC: 0W993ZZ Drainage of Right Pleural Cavity, Percutaneous Approach (ICD-10-PCS; principal; 2020-10-28)
PROC: 5A1945Z Respiratory Ventilation, 24-96 Consecutive Hours (ICD-10-PCS; 2020-10-30)
PROC: 0BH17EZ Insertion of Endotracheal Airway into Trachea, Via Natural or Artificial Opening (ICD-10-PCS; 2020-10-30)
DX: J18.9 Pneumonia, unspecified organism (principal); I50.33 Acute on chronic diastolic (congestive) heart failure; J96.01 Acute respiratory failure with hypoxia; J91.8 Pleural effusion in other conditions classified elsewhere; N18.4 Chronic kidney disease, stage 4 (severe); Z68.42 Body mass index [BMI] 45.0-49.9, adult; I13.0 Hypertensive heart and chronic kidney disease with heart failure and stage 1 through stage 4 chronic kidney disease, or unspecified chronic kidney disease; N17.9 Acute kidney failure, unspecified; Z20.822 Contact with and (suspected) exposure to COVID-19; E11.22 Type 2 diabetes mellitus with diabetic chronic kidney disease; Z79.4 Long term (current) use of insulin; J44.9 Chronic obstructive pulmonary disease, unspecified; E11.621 Type 2 diabetes mellitus with foot ulcer; L97.519 Non-pressure chronic ulcer of other part of right foot with unspecified severity; E66.01 Morbid (severe) obesity due to excess calories; Z87.891 Personal history of nicotine dependence; Z89.432 Acquired absence of left foot; Z89.421 Acquired absence of other right toe(s); E87.5 Hyperkalemia; E11.649 Type 2 diabetes mellitus with hypoglycemia without coma; E83.39 Other disorders of phosphorus metabolism; G47.30 Sleep apnea, unspecified; Z23 Encounter for immunization
CPT/HCPCS: 36415; 71045; 71250; 80048; 80053; 81000; 82805; 82962; 83605; 83615; 83735; 83880; 84100; 84145; 84478; 85007; 85025; 85027; 85379; 85610; 85730; 86141; 86769; 87040; 87088; 87635; 87804; 90686; 93306; 94002; 94003; 94640; 94660; 94760; 94799; 96372; 96374